=== PATIENT | female | born 1960 | race Caucasian/White ===

== ENCOUNTER 2018-04-04 20:16 | Inpatient (IN) | payer MEDICAID ==
[2018-04-04] MEDS ORDERED: LORazepam 2 MG/ML SDV IVPUSH ONE (20:41)
[2018-04-04] MEDS ORDERED: Ondansetron 4 MG/2 ML SDV IVPUSH ONE ×2 (20:46→22:47)
[2018-04-04] MEDS ORDERED: MVI, Adult with Vitamin K 10 ML, Thiamine 100 MG, Folic Acid 1 MG in Sodium Chloride 0.... IV ONE ×4 (20:46)
[2018-04-04] MEDS ORDERED: Sodium Chloride 0.9% 2.5 ML Syringe FLUSH PRN (21:13)
[2018-04-04] MEDS ORDERED: Sodium Chloride 0.9% 10 ML Syringe FLUSH PRN (21:13)
[2018-04-04 21:43] LABS: CHLORIDE,CL 96 mmol/L (98-107); SODIUM,NA 134 mmol/L (136-145)
--- NOTE | 2018-04-04 21:53 | EDM.PDOC ---
ED HPI GENERAL MEDICAL PROBLEM - General Chief Complaint: General Stated Complaint: MANY THINGS Time Seen by Provider: 04/04/18 20:28 Source of Information: Reports: Patient, Family, Old Records History Limitations: Reports: No Limitations - History of Present Illness INITIAL COMMENTS - FREE TEXT/NARRATIVE: HISTORY AND PHYSICAL: []58-year-old female presenting with acute alcohol withdrawal History of Present Illness: []Patient has long history of alcohol abuse She states that she quit drinking 3 days ago She has been having nausea and vomiting Her alcohol of choice is vodka which she mixes it with Gatorade. She generally has cut her consumption down so that she only has a quart every 2 weeks Review of Systems: As per history of present illness and below otherwise all systems reviewed and negative. Past medical history: As per history of present illness and as reviewed below otherwise noncontributory. Surgical history: As per history of present illness and as reviewed below otherwise noncontributory. Social history: No reported history of drug or alcohol abuse. Family history: As per history of present illness and as reviewed below otherwise noncontributory. Physical exam: Alert female who is tremoring significantly she has asked her daughter to answer for her. She is able to speak without any shortness of breath. Topic dermatitis is present significantly depressed her hands arms & chest/ vs psoriasis. HEENT: Atraumatic, normocehpalic, pupils reactive, negative for conjunctival pallor or scleral icterus, mucous membranes moist, throat clear, neck supple, nontender, trachea midline. Lungs: Clear to auscultation, breath sounds equal bilaterally, chest non tender. Heart: S1S2, regular, negative for clicks, rubs, or JVD. Abdomen: Soft, nondistended, nontender. Negative for masses or hepatossplenmegaly. Negative for costovertebral tenderness. Pelvis: Stable nontender. Genitourinary: Deferred. Rectal: Deferred Extremities: Atraumatic, negative for cords or calf pain. Neurovascular unremarkable. Neuro: Awake, alert, oriented. Cranial nerves II through XII unremarkable. Cerebellum unremarkable. Motor and sensory unremarkable throughout. Exam nonfocal. Significant tremors are noted Discussed this case with Dr. Carrizales, who has accepted for observation Diagnostics: []CBC CMP amylase lipase drug screen urine Therapeutics: []Banana bag IV Zofran IV Ativan Impression: []Acute alcohol withdrawal Plan: []Refer for observation Definitive disposition and diagnosis as appropriate pending reevaluation and review of above. Onset: Gradual Duration: Day(s): (3) Location: Reports: Generalized Quality: Reports: Same as Previous Episode Severity: Moderate Improves with: Reports: None Worsens with: Reports: None skin, all over Pain Score (Numeric/FACES): 10 - Related Data Allergies Allergy/AdvReac Type Severity Reaction Status Date / Time No Known Allergies Allergy Verified 04/04/18 20:34 Home Meds: Home Meds Calcipotriene [Calcitrene] 1 gm TP BID 04/04/18 [History] Cephalexin [Keflex] 500 mg PO QID 04/04/18 [History] Levothyroxine 112 mcg PO ACBREAKFAST 04/04/18 [History] Lisinopril 40 mg PO DAILY 04/04/18 [History] Sertraline HCl 25 mg PO DAILY 04/04/18 [History] atorvaSTATin [Lipitor] 40 mg PO BEDTIME 04/04/18 [History] Past Medical History Cardiovascular History: Reports: High Cholesterol, Hypertension, Other (See Below) 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 Gastrointestinal History: Reports: Other (See Below) Other Gastrointestinal History: large abdominal hernia [employer] History: Reports: Neurological History: Reports: Other (See Below) Other Neuro History: confusion at times Psychiatric History: Reports: Addiction, Anxiety, Depression Endocrine/Metabolic History: Reports: Hypothyroidism Dermatologic History: Reports: Eczema, Other (See Below) Other Dermatologic History: unknown skin condition - Infectious Disease History Infectious Disease History: Reports: Chicken Pox Social & Family History - Tobacco Use Smoking Status *Q: Current Every Day Smoker Years of Tobacco use: 25 Packs/Tins Daily: 0.5 - Caffeine Use Caffeine Use: Reports: Coffee - Alcohol Use Days Per Week of Alcohol Use: 7 Number of Drinks Per Day: 2 Total Drinks Per Week: 14 - Recreational Drug Use Recreational Drug Use: No ED ROS GENERAL - Review of Systems Review Of Systems: ROS reveals no pertinent complaints other than HPI. ED EXAM, GENERAL - Physical Exam Exam: See Below (see dictation) Course - Vital Signs Last Recorded V/S: Last Vital Signs Temp 36.6 C 04/04/18 20:27 Pulse 91 04/04/18 20:27 Resp 16 04/04/18 20:27 BP 156/95 H 04/04/18 20:27 Pulse Ox 100 04/04/18 20:27 - Orders/Labs/Meds Orders: Active Orders 24 hr Category Date Time Status Patient Status [ADT] Stat ADT 04/04/18 21:55 Ordered EKG Documentation Completion [RC] STAT Care 04/04/18 21:14 Active Telemetry Monitoring [Cardiac Monitoring] [RC] . Care 04/04/18 21:57 Ordered DIRECTED DRUG SCREEN, URINE [URCHEM] Stat Lab 04/04/18 21:14 Ordered UA W/MICROSCOPIC [URIN] Stat Lab 04/04/18 21:14 Ordered Sodium Chloride 0.9% [Saline Flush] Med 04/04/18 21:13 Active 10 ml FLUSH ASDIRECTED PRN Sodium Chloride 0.9% [Saline Flush] Med 04/04/18 21:13 Active 2.5 ml FLUSH ASDIRECTED PRN Saline Lock Insert [OM.PC] Stat Oth 04/04/18 21:13 Ordered Medication Orders Sodium Chloride (Saline Flush) 10 ml FLUSH ASDIRECTED PRN PRN Reason: Keep Vein Open Sodium Chloride (Saline Flush) 2.5 ml FLUSH ASDIRECTED PRN PRN Reason: Keep Vein Open Labs: Laboratory Tests 04/04/18 04/04/18 Range/Units 20:50 20:50 WBC 11.05 H (4.0-11.0) K/uL RBC 3.74 L (4.30-5.90) M/uL Hgb 12.9 (12.0-16.0) g/dL Hct 37.6 (36.0-46.0) % MCV 100.5 H (80.0-98.0) fL MCH 34.5 H (27.0-32.0) pg MCHC 34.3 (31.0-37.0) g/dL RDW Std Deviation 47.9 (28.0-62.0) fl RDW Coeff of Amrik 13 (11.0-15.0) % Plt Count 485 H (150-400) K/uL MPV 10.40 (7.40-12.00) fL Neut % (Auto) 53.8 (48.0-80.0) % Lymph % (Auto) 19.7 (16.0-40.0) % Early % (Auto) 7.9 (0.0-15.0) % Eos % (Auto) 18.1 H (0.0-7.0) % Baso % (Auto) 0.5 (0.0-1.5) % Neut # (Auto) 5.9 H (1.4-5.7) K/uL Lymph # (Auto) 2.2 (0.6-2.4) K/uL Early # (Auto) 0.9 H (0.0-0.8) K/uL Eos # (Auto) 2.0 H (0.0-0.7) K/uL Baso # (Auto) 0.1 (0.0-0.1) K/uL Nucleated RBC % 0.0 /100WBC Nucleated RBCs # 0 K/uL Sodium 134 L (136-145) mmol/L Potassium 3.8 (3.5-5.1) mmol/L Chloride 96 L (98-107) mmol/L Carbon Dioxide 31.7 (21.0-32.0) mmol/L BUN 28 H (7.0-18.0) mg/dL Creatinine 1.3 H (0.6-1.0) mg/dL Est Cr Clr Drug Dosing 38.99 mL/min Estimated GFR (MDRD) 41.9 ml/min Glucose 144 H (74-106) mg/dL Calcium 9.9 (8.5-10.1) mg/dL Total Bilirubin 0.4 (0.2-1.0) mg/dL AST 25 (15-37) IU/L ALT 22 (14-63) IU/L Alkaline Phosphatase 80 (46-116) U/L Total Protein 7.5 (6.4-8.2) g/dL Albumin 3.7 (3.4-5.0) g/dL Globulin 3.8 H (2.0-3.5) g/dL Albumin/Globulin Ratio 1.0 L (1.3-2.8) Amylase 35 (25-115) U/L Lipase 183 (73-393) U/L TSH 3rd Generation 4.04 H (0.36-3.74) uIU/mL Ethyl Alcohol <3 mg/dL Meds: Medications Generic Name Dose Route Start Last Admin Trade Name Freq PRN Reason Stop Dose Admin Sodium Chloride 10 ml 08/27/18 21:13 Saline Flush FLUSH ASDIRECTED PRN Keep Vein Open Sodium Chloride 2.5 ml 04/04/18 21:13 Saline Flush FLUSH ASDIRECTED PRN Keep Vein Open Discontinued Medications Generic Name Dose Route Start Last Admin Trade Name Freq PRN Reason Stop Dose Admin Multivitamins/Minerals 10 ml/ 1,011.2 mls @ 250 drops/min 04/04/18 20:46 Thiamine HCl 100 mg/ Folic IV 04/04/18 21:46 Acid 1 mg/ Sodium Chloride ONETIME ONE Lorazepam 1 mg 04/04/18 20:41 04/04/18 21:01 Ativan IVPUSH 04/04/18 20:42 1 mg ONETIME ONE Administration Ondansetron HCl 8 mg 04/04/18 20:46 04/04/18 20:59 Zofran IVPUSH 04/04/18 20:47 8 mg ONETIME ONE Administration Departure - Departure Time of Disposition: 22:01 Disposition: Refer to Observation Condition: Fair Clinical Impression: Alcohol withdrawal Qualifiers: Complication of substance-induced condition: uncomplicated Qualified Code(s): F10.230 - Alcohol dependence with withdrawal, uncomplicated - Discharge Information *PRESCRIPTION DRUG MONITORING PROGRAM REVIEWED*: Not Applicable *COPY OF PRESCRIPTION DRUG MONITORING REPORT IN PATIENT JOE: Not Applicable Referrals: PCP,None [Primary Care Provider] - Forms: ED Department Discharge - My Orders Last 24 Hours: My Active Orders 04/04/18 21:13 Sodium Chloride 0.9% [Saline Flush] 10 ml FLUSH ASDIRECTED PRN Sodium Chloride 0.9% [Saline Flush] 2.5 ml FLUSH ASDIRECTED PRN Saline Lock Insert [OM.PC] Stat 04/04/18 21:14 EKG Documentation Completion [RC] STAT DRUG SCREEN, URINE [URCHEM] Stat UA W/MICROSCOPIC [URIN] Stat 04/04/18 21:55 Patient Status [ADT] Stat 04/04/18 21:57 Telemetry Monitoring [Cardiac Monitoring] [RC] . DIRECTED - Assessment/Plan Last 24 Hours: My Active Orders 04/04/18 21:13 Sodium Chloride 0.9% [Saline Flush] 10 ml FLUSH ASDIRECTED PRN Sodium Chloride 0.9% [Saline Flush] 2.5 ml FLUSH ASDIRECTED PRN Saline Lock Insert [OM.PC] Stat 04/04/18 21:14 EKG Documentation Completion [RC] STAT DRUG SCREEN, URINE [URCHEM] Stat UA W/MICROSCOPIC [URIN] Stat 04/04/18 21:55 Patient Status [ADT] Stat 04/04/18 21:57 Telemetry Monitoring [Cardiac Monitoring] [RC] . DIRECTED
[2018-04-04] MEDS ORDERED: Ondansetron 4 MG/2 ML SDV ONE (22:48)
[2018-04-04] MEDS ORDERED: Acetaminophen 325 MG Tab PO PRN (23:25)
[2018-04-04] MEDS: LORazepam 2 MG/ML SDV IVPUSH PRN (23:40)
[2018-04-05] MEDS: Lactated Ringers 1,000 ML IV SCH ×2 (02:17→11:21)
[2018-04-05] MEDS: LORazepam 2 MG/ML SDV IVPUSH PRN ×5 (02:29→16:58)
[2018-04-05] MEDS: Ondansetron 4 MG/2 ML SDV IVPUSH PRN ×2 (04:20→09:54)
[2018-04-05] MEDS ORDERED: Promethazine 25 MG/ML SDV IM PRN (09:07)
[2018-04-05] MEDS ORDERED: MENTHOL TOP PRN (10:03)
[2018-04-05] MEDS ORDERED: ZINC OXIDE TOP PRN (10:03)
[2018-04-05] MEDS ORDERED: Triamcinolone Acetonide 0.1% Crm 15 GM Tube TOP SCH (11:10)
[2018-04-05] MEDS: Lisinopril 10 MG Tab PO SCH (11:18)
[2018-04-05] MEDS ORDERED: Albuterol/Ipratropium 3.0-0.5 MG/3 ML Neb Soln NEB PRN (11:19)
[2018-04-05] MEDS: methylPREDNISolone Sodium Succinate 40 MG/1 ML SDV IVPUSH SCH ×2 (11:20→15:23)
[2018-04-05] MEDS: diphenhydrAMINE 50 MG/ML SDV IVPUSH PRN ×2 (11:20→16:59)
[2018-04-05] MEDS ORDERED: Cephalexin 500 MG Cap PO SCH (12:00)
--- NOTE | 2018-04-05 13:08 | PCM.HP ---
H&P History of Present Illness - General Date of Service: 04/05/18 Admit Problem/Dx: Admission Diagnosis/Problem Admission Diagnosis/Problem Alcohol withdrawal syndrome Source of Information: Patient, Family History Limitations: Reports: Other (cognitive impairment) - History of Present Illness Initial Comments - Free Text/Narative: Patient 58 y old who looks significantly older than her age presented to hospital last night brought by her daughter in law because patient was alone at home for the past 2 weeks and when her daughter in law came she said she did not eat for the past 3 days. Patient has shaking of the hands and significant cognitive impairment. She is not able to give detailed history. Daughter in law expressed concerns about her body rash that is pruriginous and extended over her chest , back , abdomen , back of the neck , spares the face and scalp. Also as per daughter in law she lost about 50 lbs in less than 1 year and she drinks daily for the past 30 years. Lately she decreased her alcohol intake , she drinks only a glass a day of orange gatorade mixed with vodka.Her last drink as per patient was 3-4 days ago and currently patient has tremor of hands. Her daughter in law also says she vomits and has abdominl pain and this is going on for the past 3-4 y , every few moths , but lately it became more frequent , q monthly. She has a large ventral hernia and saw Dr. Hinds for this and was told this hernia is not operable here .Patient is supposed to have EGD / colonoscopy with Dr. Hinds as outpatient for periodic abdominal pain and vomiting. As per her daughter in law patient was treated with prednisone for 1 week and her rash had improvement . She also had a CT chest as work up for weight loss and it was negative Onset of Symptoms: Reports: Gradual Duration of Symptoms: Reports: Chronic Location: Reports: Head, Neck, Chest, Abdomen, Upper Extremity, Left, Upper Extremity, Right, Lower Extremity, Left, Lower Extremity, Right skin, all over Pain Score (Numeric/FACES): 0 - Related Data Allergies/Adverse Reactions: Allergies Allergy/AdvReac Type Severity Reaction Status Date / Time No Known Allergies Allergy Verified 04/04/18 20:34 Home Medications: Home Meds Calcipotriene [Calcitrene] 1 gm TP BID 04/04/18 [History] Cephalexin [Keflex] 500 mg PO QID 04/04/18 [History] Levothyroxine 112 mcg PO ACBREAKFAST 04/04/18 [History] Lisinopril 40 mg PO DAILY 04/04/18 [History] Sertraline HCl 25 mg PO DAILY 04/04/18 [History] atorvaSTATin [Lipitor] 40 mg PO BEDTIME 04/04/18 [History] Past Medical History - Past Health History Medical/Surgical History: Denies Medical/Surgical History Cardiovascular History: Reports: High Cholesterol, Hypertension, Other (See Below) 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 Gastrointestinal History: Reports: Other (See Below) Other Gastrointestinal History: large abdominal hernia [employer] History: Reports: Neurological History: Reports: Other (See Below) Other Neuro History: confusion at times Psychiatric History: Reports: Addiction, Anxiety, Depression Endocrine/Metabolic History: Reports: Hypothyroidism Dermatologic History: Reports: Eczema, Other (See Below) Other Dermatologic History: unknown skin condition - Infectious Disease History Infectious Disease History: Reports: Chicken Pox Social & Family History - Family History Family Medical History: Unobtainable - Tobacco Use Smoking Status *Q: Current Every Day Smoker Years of Tobacco use: 25 Packs/Tins Daily: 0.5 - Caffeine Use Caffeine Use: Reports: Coffee - Alcohol Use Days Per Week of Alcohol Use: 7 Number of Drinks Per Day: 2 Total Drinks Per Week: 14 - Recreational Drug Use Recreational Drug Use: No H&P Review of Systems - Review of Systems: Review Of Systems: See Below General: Reports: Fatigue, Decreased Appetite, Weight Loss (50 lbs) HEENT: Reports: No Symptoms Pulmonary: Reports: No Symptoms Cardiovascular: Reports: No Symptoms Gastrointestinal: Reports: No Symptoms Genitourinary: Reports: No Symptoms Musculoskeletal: Reports: No Symptoms Skin: Reports: Rash Psychiatric: Reports: Depression Neurological: Reports: No Symptoms Hematologic/Lymphatic: Reports: No Symptoms Immunologic: Reports: No Symptoms Exam - Exam Exam: See Below - Vital Signs Vital Signs: Last Vital Signs Temp 98.2 F 04/05/18 11:31 Pulse 90 04/05/18 11:31 Resp 16 04/05/18 11:31 BP 189/93 H 04/05/18 12:09 Pulse Ox 97 04/05/18 11:31 Weight: 121 lb 6.4 oz - Exam General: Alert, Oriented HEENT: Conjunctiva Clear Neck: Supple, Trachea Midline Lungs: Clear to Auscultation, Normal Respiratory Effort Cardiovascular: Regular Rate, Regular Rhythm, Normal S1, Normal S2 GI/Abdominal Exam: Normal Bowel Sounds, Soft, Non-Tender, No Distention, Hernia (large ventral hernia) Back Exam: Normal Inspection Extremities: Normal Inspection Skin: Rash Neurological: Cranial Nerves Intact Neuro Extensive - Mental Status: Alert, Oriented x3 Neuro Extensive - Motor, Sensory, Reflexes: CN II-XII Intact, Normal Gait, Normal Reflexes Psychiatric: Alert, Normal Affect - Patient Data Lab Results Last 24 hrs: Laboratory Results - last 24 hr 04/04/18 04/04/18 04/04/18 Range/Units 20:30 20:50 20:50 WBC 11.05 H (4.0-11.0) K/uL RBC 3.74 L (4.30-5.90) M/uL Hgb 12.9 (12.0-16.0) g/dL Hct 37.6 (36.0-46.0) % MCV 100.5 H (80.0-98.0) fL MCH 34.5 H (27.0-32.0) pg MCHC 34.3 (31.0-37.0) g/dL RDW Std Deviation 47.9 (28.0-62.0) fl RDW Coeff of Amrik 13 (11.0-15.0) % Plt Count 485 H (150-400) K/uL MPV 10.40 (7.40-12.00) fL Neut % (Auto) 53.8 (48.0-80.0) % Lymph % (Auto) 19.7 (16.0-40.0) % [place] % (Auto) 7.9 (0.0-15.0) % Eos % (Auto) 18.1 H (0.0-7.0) % Baso % (Auto) 0.5 (0.0-1.5) % Neut # (Auto) 5.9 H (1.4-5.7) K/uL Lymph # (Auto) 2.2 (0.6-2.4) K/uL [place] # (Auto) 0.9 H (0.0-0.8) K/uL Eos # (Auto) 2.0 H (0.0-0.7) K/uL Baso # (Auto) 0.1 (0.0-0.1) K/uL Nucleated RBC % 0.0 /100WBC Nucleated RBCs # 0 K/uL Sodium 134 L (136-145) mmol/L Potassium 3.8 (3.5-5.1) mmol/L Chloride 96 L (98-107) mmol/L Carbon Dioxide 31.7 (21.0-32.0) mmol/L BUN 28 H (7.0-18.0) mg/dL Creatinine 1.3 H (0.6-1.0) mg/dL Est Cr Clr Drug Dosing 38.99 mL/min Estimated GFR (MDRD) 41.9 ml/min Glucose 144 H (74-106) mg/dL Calcium 9.9 (8.5-10.1) mg/dL Total Bilirubin 0.4 (0.2-1.0) mg/dL AST 25 (15-37) IU/L ALT 22 (14-63) IU/L Alkaline Phosphatase 80 (46-116) U/L Troponin I < 0.050 (0.000-0.056) ng/mL Total Protein 7.5 (6.4-8.2) g/dL Albumin 3.7 (3.4-5.0) g/dL Globulin 3.8 H (2.0-3.5) g/dL Albumin/Globulin Ratio 1.0 L (1.3-2.8) Amylase 35 (25-115) U/L Lipase 183 (73-393) U/L TSH 3rd Generation 4.04 H (0.36-3.74) uIU/mL Ethyl Alcohol <3 mg/dL 04/05/18 04/05/18 Range/Units 05:37 05:37 WBC 12.86 H (4.0-11.0) K/uL RBC 3.50 L (4.30-5.90) M/uL Hgb 11.8 L (12.0-16.0) g/dL Hct 35.6 L (36.0-46.0) % MCV 101.7 H (80.0-98.0) fL MCH 33.7 H (27.0-32.0) pg MCHC 33.1 (31.0-37.0) g/dL RDW Std Deviation 48.5 (28.0-62.0) fl RDW Coeff of Amrik 13 (11.0-15.0) % Plt Count 482 H (150-400) K/uL MPV 9.80 (7.40-12.00) fL Neut % (Auto) 59.0 (48.0-80.0) % Lymph % (Auto) 19.4 (16.0-40.0) % [place] % (Auto) 6.8 (0.0-15.0) % Eos % (Auto) 14.3 H (0.0-7.0) % Baso % (Auto) 0.5 (0.0-1.5) % Neut # (Auto) 7.6 H (1.4-5.7) K/uL Lymph # (Auto) 2.5 H (0.6-2.4) K/uL [place] # (Auto) 0.9 H (0.0-0.8) K/uL Eos # (Auto) 1.8 H (0.0-0.7) K/uL Baso # (Auto) 0.1 (0.0-0.1) K/uL Nucleated RBC % 0.0 /100WBC Nucleated RBCs # 0 K/uL Sodium 138 (136-145) mmol/L Potassium 3.6 (3.5-5.1) mmol/L Chloride 101 (98-107) mmol/L Carbon Dioxide 32.5 H (21.0-32.0) mmol/L BUN 23 H (7.0-18.0) mg/dL Creatinine 1.2 H (0.6-1.0) mg/dL Est Cr Clr Drug Dosing 43.88 mL/min Estimated GFR (MDRD) 46.0 ml/min Glucose 134 H (74-106) mg/dL Calcium 9.5 (8.5-10.1) mg/dL Total Bilirubin (0.2-1.0) mg/dL AST (15-37) IU/L ALT (14-63) IU/L Alkaline Phosphatase (46-116) U/L Troponin I (0.000-0.056) ng/mL Total Protein (6.4-8.2) g/dL Albumin (3.4-5.0) g/dL Globulin (2.0-3.5) g/dL Albumin/Globulin Ratio (1.3-2.8) Amylase (25-115) U/L Lipase (73-393) U/L TSH 3rd Generation (0.36-3.74) uIU/mL Ethyl Alcohol mg/dL Result Diagrams: 04/05/18 05:37 04/05/18 05:37 - Problem List (1) Unintentional weight loss SNOMED Code(s): 770023942 ICD Code: R63.4 - ABNORMAL WEIGHT LOSS Status: Acute Current Visit: Yes (2) Alcohol withdrawal SNOMED Code(s): 423880446 ICD Code: F10.239 - ALCOHOL DEPENDENCE WITH WITHDRAWAL, UNSPECIFIED Status : Acute Current Visit: Yes Qualifiers: Complication of substance-induced condition: uncomplicated Qualified Code(s ): F10.230 - Alcohol dependence with withdrawal, uncomplicated (3) Alcohol abuse SNOMED Code(s): 74128498 ICD Code: F10.10 - ALCOHOL ABUSE, UNCOMPLICATED Status: Acute Current Visit: Yes (4) Dementia SNOMED Code(s): 27193817 ICD Code: F03.90 - UNSPECIFIED DEMENTIA WITHOUT BEHAVIORAL DISTURBANCE Status: Acute Current Visit: Yes (5) Ventral hernia SNOMED Code(s): 043486063 ICD Code: K43.9 - VENTRAL HERNIA WITHOUT OBSTRUCTION OR GANGRENE Status: Acute Current Visit: Yes (6) Skin rash SNOMED Code(s): 455424589 ICD Code: R21 - RASH AND OTHER NONSPECIFIC SKIN ERUPTION Status: Acute Current Visit: Yes Problem List Initiated/Reviewed/Updated: Yes Orders Last 24hrs: Active Orders 24 hr Category Date Time Status Patient Status [ADT] Routine ADT 04/05/18 12:53 Active Patient Status [ADT] Stat ADT 04/04/18 21:55 Active CIWAA Assessment [RC] Q4H Care 04/04/18 23:23 Active RT Aerosol Therapy [RC] ASDIRECTED Care 04/05/18 11:19 Active Telemetry Monitoring [Cardiac Monitoring] [RC] Q8H Care 04/04/18 21:57 Active 2 Gram Sodium Diet [DIET] Diet 04/05/18 Breakfast Active BMP [BASIC METABOLIC PANEL,BMP] [CHEM] DAILY Lab 04/06/18 05:00 Ordered BMP [BASIC METABOLIC PANEL,BMP] [CHEM] DAILY Lab 04/07/18 05:00 Ordered BMP [BASIC METABOLIC PANEL,BMP] [CHEM] DAILY Lab 04/08/18 05:00 Ordered BMP [BASIC METABOLIC PANEL,BMP] [CHEM] DAILY Lab 04/09/18 05:00 Ordered CBC WITH AUTO DIFF [HEME] DAILY Lab 04/06/18 05:00 Ordered CBC WITH AUTO DIFF [HEME] DAILY Lab 04/07/18 05:00 Ordered CBC WITH AUTO DIFF [HEME] DAILY Lab 04/08/18 05:00 Ordered DRUG SCREEN, URINE [URCHEM] Stat Lab 04/04/18 21:14 Ordered UA W/MICROSCOPIC [URIN] Stat Lab 04/04/18 21:14 Ordered VANCOMYCIN TROUGH [CHEM] Routine Lab 04/06/18 21:30 Ordered Acetaminophen [Tylenol] Med 04/04/18 23:25 Active 650 mg PO Q6H PRN Acetaminophen/oxyCODONE [Percocet 325-5 MG] Med 04/04/18 23:23 Active 1 tab PO Q4H PRN Albuterol/Ipratropium [DuoNeb 3.0-0.5 MG/3 ML] Med 04/05/18 11:19 Active 3 ml NEB Q4HRRT PRN Insulin Aspart [NovoLOG] Med 04/06/18 11:30 Active See Protocol SUBCUT TIDAC LORazepam [Ativan] Med 04/04/18 23:23 Active See Protocol IVPUSH Q4H PRN Lactated Ringers [Ringers, Lactated] 1,000 ml Med 04/04/18 23:30 Active IV ASDIRECTED Levothyroxine Med 04/06/18 07:30 Active 112 mcg PO ACBREAKFAST Lisinopril [Prinivil] Med 04/05/18 11:10 Active 40 mg PO DAILY Menthol/Zinc Oxide [Gold Sultana Medicated Body Pwd] Med 04/05/18 10:03 Active 1 gm TOP BID PRN Ondansetron [Zofran] Med 04/05/18 04:08 Active 4 mg IVPUSH Q4H PRN Patient's Own Medication [Ptom] Med 04/05/18 21:00 Active 1 each PO BID Promethazine [Phenergan] Med 04/05/18 09:07 Active 12.5 mg IM Q4H PRN Sertraline [Zoloft] Med 04/06/18 09:00 Active 25 mg PO DAILY Sodium Chloride 0.9% [Saline Flush] Med 04/04/18 21:13 Active 10 ml FLUSH ASDIRECTED PRN Sodium Chloride 0.9% [Saline Flush] Med 04/04/18 21:13 Active 2.5 ml FLUSH ASDIRECTED PRN Triamcinolone Acetonide [Triamcinolone Acetonide 0.1% Med 04/05/18 11:10 Active Crm] 15 gm TOP DAILY Vancomycin Pharmacy to Dose [Pharmacy to Dose - Med 04/05/18 10:15 Active Vancomycin] 1 dose .XX ASDIRECTED Vancomycin [Vancocin] 1 gm Med 04/05/18 10:30 Active Sodium Chloride 0.9% [Normal Saline] 250 ml IV Q12H atorvaSTATin [Lipitor] Med 04/05/18 21:00 Active 40 mg PO BEDTIME diphenhydrAMINE [Benadryl] Med 04/05/18 10:04 Active 50 mg IVPUSH Q6H PRN methylPREDNISolone Sod Succ [Solu-MEDROL] Med 04/05/18 10:15 Active 40 mg IVPUSH Q6H Saline Lock Insert [OM.PC] Stat Oth 04/04/18 21:13 Ordered Code Status [Resuscitation Status] Routine Resus Stat 04/05/18 12:26 Ordered Medication Orders Acetaminophen (Tylenol) 650 mg PO Q6H PRN PRN Reason: Pain Albuterol/Ipratropium (Duoneb 3.0-0.5 Mg/3 Ml) 3 ml NEB Q4HRRT PRN PRN Reason: SOB/wheezing Last Admin: 04/05/18 11:47 Dose: 3 ml Atorvastatin Calcium (Lipitor) 40 mg PO BEDTIME [facility]Y Calamine/Phenol (Gold Sultana Medicated Body Pwd) 1 gm TOP BID PRN PRN Reason: pruritus Diphenhydramine HCl (Benadryl) 50 mg IVPUSH Q6H PRN PRN Reason: Itching Last Admin: 04/05/18 11:20 Dose: 50 mg Lactated Ringer's (Ringers, Lactated) 1,000 mls @ 100 mls/hr IV ASDIRECTED AMY Last Admin: 04/05/18 11:21 Dose: 100 mls/hr Infusion: 04/05/18 11:21 Dose: 100 mls/hr Admin: 04/05/18 02:17 Dose: 100 mls/hr Vancomycin HCl 1 gm/ Sodium (Chloride) 250 mls @ 166.667 mls/hr IV Q12H [facility] Last Admin: 04/05/18 11:20 Dose: 166.667 mls/hr Insulin Aspart (Novolog) 0 unit SUBCUT TIDAC [facility]Y; Protocol Levothyroxine Sodium (Levothyroxine) 112 mcg PO ACBREAKFAST [facility] Lisinopril (Prinivil) 40 mg PO DAILY [facility] Last Admin: 04/05/18 11:18 Dose: 40 mg Lorazepam (Ativan) 0 mg IVPUSH Q4H PRN; Protocol PRN Reason: Withdrawal Symptoms Last Admin: 04/05/18 12:38 Dose: 1 mg Admin: 04/05/18 09:28 Dose: 2 mg Admin: 04/05/18 07:46 Dose: 2 mg Admin: 04/05/18 02:29 Dose: 2 mg Admin: 04/04/18 23:40 Dose: 2 mg Methylprednisolone Sodium Succinate (Solu-Medrol) 40 mg IVPUSH Q6H [facility] Last Admin: 04/05/18 11:20 Dose: 40 mg Ondansetron HCl (Zofran) 4 mg IVPUSH Q4H PRN PRN Reason: Nausea/Vomiting Last Admin: 04/05/18 09:54 Dose: 4 mg Admin: 04/05/18 04:20 Dose: 4 mg Oxycodone/Acetaminophen (Percocet 325-5 Mg) 1 tab PO Q4H PRN PRN Reason: Pain Calcipotriene [ (Calcitrene] 1 Gm) 1 each PO BID [facility] Promethazine HCl (Phenergan) 12.5 mg IM Q4H PRN PRN Reason: Vomiting Last Admin: 04/05/18 12:51 Dose: 12.5 mg Sertraline HCl (Zoloft) 25 mg PO DAILY [facility] Sodium Chloride (Saline Flush) 10 ml FLUSH ASDIRECTED PRN PRN Reason: Keep Vein Open Sodium Chloride (Saline Flush) 2.5 ml FLUSH ASDIRECTED PRN PRN Reason: Keep Vein Open Triamcinolone Acetonide (Triamcinolone Acetonide 0.1% Crm) 15 gm TOP DAILY [facility] Last Admin: 04/05/18 11:59 Dose: 1 applic Vancomycin HCl (Pharmacy To Dose - Vancomycin) 1 dose .XX ASDIRECTED [facility] Assessment and plan Will admit patient to medical telemetry [facility] protocol IV fluids , banana bag for dementia - will give patient thiamine 100 mg po daily , multivitamins , will order rPR and TSH and B12 level For anxiety - continue sertraline 25 mg po daily For hypothyroidism - will order TSH For skin rash _ solumedrol 60 mg iv q 6 h , benadryl 50 mg iv q 6 h , doxepin 25 mg po daily triamcinolone 0.1 % bid topical vancomycin iv , pharmacy to dose menthol paste topical for unintentional weight loss - CT abdomen and pelvis with and wo contrast Gi prof: PPI
[2018-04-05] MEDS ORDERED: Doxepin 25 MG Cap PO ONE (16:48)
[2018-04-05] MEDS: methylPREDNISolone Sodium Succinate 125 MG/2 ML SDV IVPUSH SCH ×2 (17:10→22:18)
[2018-04-05] MEDS: atorvaSTATin 40 MG Tab PO SCH (20:25)
[2018-04-05] MEDS: Triamcinolone Acetonide 0.1% Crm 15 GM Tube TOP SCH (21:42)
[2018-04-05] MEDS: CALCIPOTRIENE 1 GM PO SCH (21:46)
[2018-04-06] MEDS: diphenhydrAMINE 50 MG/ML SDV IVPUSH SCH ×4 (00:57→17:59)
[2018-04-06] MEDS: LORazepam 2 MG/ML SDV IVPUSH PRN (00:57)
[2018-04-06] MEDS: Ampicillin/Sulbactam Na 3 GM in Sodium Chloride 0.9% 100 ML IV SCH ×4 (01:30→18:01)
[2018-04-06] MEDS: methylPREDNISolone Sodium Succinate 125 MG/2 ML SDV IVPUSH SCH ×4 (03:56→23:09)
[2018-04-06] MEDS: Acetaminophen/oxyCODONE 325-5 MG Tab PO PRN ×2 (06:09→17:07)
[2018-04-06] MEDS: Levothyroxine 112 MCG Tab PO SCH (06:31)
[2018-04-06] MEDS ORDERED: Lisinopril 10 MG Tab PO SCH (09:00)
[2018-04-06] MEDS ORDERED: Triamcinolone Acetonide 0.1% Crm 15 GM Tube TOP SCH (09:00)
[2018-04-06] MEDS: Lisinopril 10 MG Tab PO SCH (09:04)
[2018-04-06] MEDS: Sertraline 50 MG Tab PO SCH (09:05)
[2018-04-06] MEDS: Triamcinolone Acetonide 0.1% Crm 15 GM Tube TOP SCH ×2 (09:06→21:30)
[2018-04-06] MEDS: CALCIPOTRIENE 1 GM PO SCH ×2 (09:35→22:09)
[2018-04-06] MEDS: Folic Acid/Vitamin B Complex With C Cap PO SCH (10:09)
[2018-04-06] MEDS ORDERED: Lidocaine 1% with EPINEPHrine 1:100,000 20 ML MDV INJECT ONE (11:00)
--- NOTE | 2018-04-06 11:02 | CT ---
EXAM DATE: 04/05/18 PATIENT'S AGE: 58 Patient: GELY CLINE Facility: [place], [place] Site . Site : 1960 Study: CT Abdomen [id number]/[id number] 6:46:29 PM Ordering Physician: Sofie Raya Final Report: HISTORY: Unintentional weight loss. Abdominal pain. TECHNIQUE: CT abdomen without and with IV contrast. COMPARISON: CT abdomen and pelvis 09/20/2017. FINDINGS: Abdomen: No liver lesions. No bile duct dilation. No pancreatic mass or pancreatic duct dilation. No spleen lesions. Spleen is normal size. No adrenal nodules. Punctate papillary or caliceal calcifications in the left kidney. No obstructing calculi. Kidneys enhance symmetrically. Right renal cyst. Subcentimeter hypodense lesions in both kidneys are too small to characterize but are likely cysts. Visualized portions of the collecting systems are nondilated. Imaged bowel is not dilated. Large ventral hernia containing nondilated small bowel and colon, partially imaged. No lymphadenopathy. Atherosclerosis. Ectasia of the distal descending thoracic aorta up to 3.3 x 3.6 cm just above the diaphragmatic hiatus. Mild ectasia of the infrarenal abdominal aorta up to 2.4 cm diameter. Musculoskeletal: Thoracolumbar scoliosis. Degenerative changes of the spine. Lower chest: Coronary artery calcifications. Visualized ascending aorta is dilated to 4.5 cm. Mild atelectasis in the left lower lobe. IMPRESSION: 1. No acute findings in the abdomen. 2. Partially imaged large ventral hernia containing nondilated small bowel and colon. 3. Dilated ascending and distal descending thoracic aorta. Mildly dilated infrarenal abdominal aorta. Please note that all CT scans at this facility use dose modulation, iterative reconstruction, and/or weight-based dosing when appropriate to reduce radiation dose to as low as reasonably achievable. Dictated by Gildardo Trimble MD @ Apr 05 2018 7:11PM (Electronic Signature) Report Signed by Proxy. MTDD
[2018-04-06] MEDS: Insulin Aspart 100 Units/ML 3 ML Pen SUBCUT SCH ×2 (11:16→16:49)
--- NOTE | 2018-04-06 12:53 | PCM.PN ---
- General Info Date of Service: 04/06/18 Admission Dx/Problem (Free Text): Admission Diagnosis/Problem Admission Diagnosis/Problem Alcohol withdrawal syndrome Subjective Update: Patient ct of abdomen did not show any malignancy. Her rash is improving with iv antib and solumedrol iv . Had decrease in Hb to 8.6 from 11 , Received IV fluids.Will start protonix 40 mg iv daily. Diagnostic occult blood screen. Her blood work at admission showed eosinophilia - likley this rash is allergic. Had skin biopsy with Dr. Hanson. - Review of Systems General: Reports: No Symptoms HEENT: Reports: No Symptoms Pulmonary: Reports: No Symptoms Cardiovascular: Reports: No Symptoms Gastrointestinal: Reports: Other (ventral hernia) Genitourinary: Reports: No Symptoms Musculoskeletal: Reports: No Symptoms Skin: Reports: Pruritis, Rash, Other (superficial escoriations due to scretching ) Neurological: Reports: No Symptoms Psychiatric: Reports: No Symptoms - Patient Data Vitals - Most Recent: Last Vital Signs Temp 98.0 F 04/06/18 11:49 Pulse 85 04/06/18 11:49 Resp 22 H 04/06/18 11:49 BP 123/77 04/06/18 11:49 Pulse Ox 94 L 04/06/18 11:49 Weight - Most Recent: 121 lb 6.4 oz I&O - Last 24 Hours: Intake & Output 04/05/18 04/06/18 04/06/18 22:59 06:59 14:59 Intake Total 831 1972 Output Total 600 300 Balance 231 1672 Lab Results Last 24 Hours: Laboratory Results - last 24 hr 04/05/18 04/05/18 04/05/18 Range/Units 05:37 15:45 15:45 WBC (4.0-11.0) K/uL RBC (4.30-5.90) M/uL Hgb (12.0-16.0) g/dL Hct (36.0-46.0) % MCV (80.0-98.0) fL MCH (27.0-32.0) pg MCHC (31.0-37.0) g/dL RDW Std Deviation (28.0-62.0) fl RDW Coeff of Amrik (11.0-15.0) % Plt Count (150-400) K/uL MPV (7.40-12.00) fL Neut % (Auto) (48.0-80.0) % Lymph % (Auto) (16.0-40.0) % Perkins % (Auto) (0.0-15.0) % Eos % (Auto) (0.0-7.0) % Baso % (Auto) (0.0-1.5) % Neut # (Auto) (1.4-5.7) K/uL Lymph # (Auto) (0.6-2.4) K/uL Perkins # (Auto) (0.0-0.8) K/uL Eos # (Auto) (0.0-0.7) K/uL Baso # (Auto) (0.0-0.1) K/uL Nucleated RBC % /100WBC Nucleated RBCs # K/uL Sodium (136-145) mmol/L Potassium (3.5-5.1) mmol/L Chloride (98-107) mmol/L Carbon Dioxide (21.0-32.0) mmol/L BUN (7.0-18.0) mg/dL Creatinine (0.6-1.0) mg/dL Est Cr Clr Drug Dosing mL/min Estimated GFR (MDRD) ml/min Glucose (74-106) mg/dL POC Glucose (60-110) mg/dL Hemoglobin A1c (4.5-6.2) % Calcium (8.5-10.1) mg/dL Vitamin B12 (193-986) pg/mL Free T4 1.19 (0.76-1.46) ng/dL Urine Color YELLOW Urine Appearance CLEAR Urine pH 8.5 H (5.0-8.0) Ur Specific [place] 1.015 (1.001-1.035) Urine Protein TRACE (NEGATIVE) mg/dL Urine Glucose (UA) NEGATIVE (NEGATIVE) mg/dL Urine Ketones NEGATIVE (NEGATIVE) mg/dL Urine Occult Blood NEGATIVE (NEGATIVE) Urine Nitrite NEGATIVE (NEGATIVE) Urine Bilirubin NEGATIVE (NEGATIVE) Urine Urobilinogen 0.2 (<2.0) EU/dL Ur Leukocyte Esterase NEGATIVE (NEGATIVE) Urine RBC 0-1 (0-2/HPF) Urine WBC 0-1 (0-5/HPF) Ur Epithelial Cells FEW (NONE-FEW) Urine Bacteria FEW (NEGATIVE) Urine Mucus LIGHT (NONE-MOD) Urine Opiates Screen NEGATIVE (NEGATIVE) Ur Oxycodone Screen NEGATIVE (NEGATIVE) Urine Methadone Screen NEGATIVE (NEGATIVE) Ur Barbiturates Screen NEGATIVE (NEGATIVE) Ur Phencyclidine Scrn NEGATIVE (NEGATIVE) Ur Amphetamine Screen NEGATIVE (NEGATIVE) U Methamphetamines Scrn NEGATIVE (NEGATIVE) U Benzodiazepines Scrn POSITIVE (NEGATIVE) U Cocaine Metab Screen NEGATIVE (NEGATIVE) U Marijuana (THC) Screen NEGATIVE (NEGATIVE) 04/06/18 04/06/18 04/06/18 Range/Units 05:43 05:43 05:43 WBC 9.22 (4.0-11.0) K/uL RBC 2.60 L (4.30-5.90) M/uL Hgb 8.9 L (12.0-16.0) g/dL Hct 26.7 L (36.0-46.0) % MCV 102.7 H (80.0-98.0) fL MCH 34.2 H (27.0-32.0) pg MCHC 33.3 (31.0-37.0) g/dL RDW Std Deviation 49.8 (28.0-62.0) fl RDW Coeff of Amrik 13 (11.0-15.0) % Plt Count 370 (150-400) K/uL MPV 9.90 (7.40-12.00) fL Neut % (Auto) 85.5 H (48.0-80.0) % Lymph % (Auto) 12.4 L (16.0-40.0) % Perkins % (Auto) 1.8 (0.0-15.0) % Eos % (Auto) 0.2 (0.0-7.0) % Baso % (Auto) 0.1 (0.0-1.5) % Neut # (Auto) 7.9 H (1.4-5.7) K/uL Lymph # (Auto) 1.1 (0.6-2.4) K/uL Perkins # (Auto) 0.2 (0.0-0.8) K/uL Eos # (Auto) 0.0 (0.0-0.7) K/uL Baso # (Auto) 0.0 (0.0-0.1) K/uL Nucleated RBC % 0.0 /100WBC Nucleated RBCs # 0 K/uL Sodium 143 (136-145) mmol/L Potassium 4.5 (3.5-5.1) mmol/L Chloride 107 (98-107) mmol/L Carbon Dioxide 28.7 (21.0-32.0) mmol/L BUN 25 H (7.0-18.0) mg/dL Creatinine 1.0 (0.6-1.0) mg/dL Est Cr Clr Drug Dosing 52.66 mL/min Estimated GFR (MDRD) 56.7 ml/min Glucose 151 H (74-106) mg/dL POC Glucose (60-110) mg/dL Hemoglobin A1c (4.5-6.2) % Calcium 9.6 (8.5-10.1) mg/dL Vitamin B12 493 (193-986) pg/mL Free T4 (0.76-1.46) ng/dL Urine Color Urine Appearance Urine pH (5.0-8.0) Ur Specific [place] (1.001-1.035) Urine Protein (NEGATIVE) mg/dL Urine Glucose (UA) (NEGATIVE) mg/dL Urine Ketones (NEGATIVE) mg/dL Urine Occult Blood (NEGATIVE) Urine Nitrite (NEGATIVE) Urine Bilirubin (NEGATIVE) Urine Urobilinogen (<2.0) EU/dL Ur Leukocyte Esterase (NEGATIVE) Urine RBC (0-2/HPF) Urine WBC (0-5/HPF) Ur Epithelial Cells (NONE-FEW) Urine Bacteria (NEGATIVE) Urine Mucus (NONE-MOD) Urine Opiates Screen (NEGATIVE) Ur Oxycodone Screen (NEGATIVE) Urine Methadone Screen (NEGATIVE) Ur Barbiturates Screen (NEGATIVE) Ur Phencyclidine Scrn (NEGATIVE) Ur Amphetamine Screen (NEGATIVE) U Methamphetamines Scrn (NEGATIVE) U Benzodiazepines Scrn (NEGATIVE) U Cocaine Metab Screen (NEGATIVE) U Marijuana (THC) Screen (NEGATIVE) 04/06/18 04/06/18 Range/Units 06:43 11:08 WBC (4.0-11.0) K/uL RBC (4.30-5.90) M/uL Hgb (12.0-16.0) g/dL Hct (36.0-46.0) % MCV (80.0-98.0) fL MCH (27.0-32.0) pg MCHC (31.0-37.0) g/dL RDW Std Deviation (28.0-62.0) fl RDW Coeff of Amrik (11.0-15.0) % Plt Count (150-400) K/uL MPV (7.40-12.00) fL Neut % (Auto) (48.0-80.0) % Lymph % (Auto) (16.0-40.0) % Perkins % (Auto) (0.0-15.0) % Eos % (Auto) (0.0-7.0) % Baso % (Auto) (0.0-1.5) % Neut # (Auto) (1.4-5.7) K/uL Lymph # (Auto) (0.6-2.4) K/uL Perkins # (Auto) (0.0-0.8) K/uL Eos # (Auto) (0.0-0.7) K/uL Baso # (Auto) (0.0-0.1) K/uL Nucleated RBC % /100WBC Nucleated RBCs # K/uL Sodium (136-145) mmol/L Potassium (3.5-5.1) mmol/L Chloride (98-107) mmol/L Carbon Dioxide (21.0-32.0) mmol/L BUN (7.0-18.0) mg/dL Creatinine (0.6-1.0) mg/dL Est Cr Clr Drug Dosing mL/min Estimated GFR (MDRD) ml/min Glucose (74-106) mg/dL POC Glucose 145 H (60-110) mg/dL Hemoglobin A1c 5.3 (4.5-6.2) % Calcium (8.5-10.1) mg/dL Vitamin B12 (193-986) pg/mL Free T4 (0.76-1.46) ng/dL Urine Color Urine Appearance Urine pH (5.0-8.0) Ur Specific [place] (1.001-1.035) Urine Protein (NEGATIVE) mg/dL Urine Glucose (UA) (NEGATIVE) mg/dL Urine Ketones (NEGATIVE) mg/dL Urine Occult Blood (NEGATIVE) Urine Nitrite (NEGATIVE) Urine Bilirubin (NEGATIVE) Urine Urobilinogen (<2.0) EU/dL Ur Leukocyte Esterase (NEGATIVE) Urine RBC (0-2/HPF) Urine WBC (0-5/HPF) Ur Epithelial Cells (NONE-FEW) Urine Bacteria (NEGATIVE) Urine Mucus (NONE-MOD) Urine Opiates Screen (NEGATIVE) Ur Oxycodone Screen (NEGATIVE) Urine Methadone Screen (NEGATIVE) Ur Barbiturates Screen (NEGATIVE) Ur Phencyclidine Scrn (NEGATIVE) Ur Amphetamine Screen (NEGATIVE) U Methamphetamines Scrn (NEGATIVE) U Benzodiazepines Scrn (NEGATIVE) U Cocaine Metab Screen (NEGATIVE) U Marijuana (THC) Screen (NEGATIVE) Med Orders - Current: Current Medications Acetaminophen (Tylenol) 650 mg PO Q6H PRN PRN Reason: Pain Albuterol/Ipratropium (Duoneb 3.0-0.5 Mg/3 Ml) 3 ml NEB Q4HRRT PRN PRN Reason: SOB/wheezing Last Admin: 04/05/18 11:47 Dose: 3 ml Atorvastatin Calcium (Lipitor) 40 mg PO BEDTIME [facility] Last Admin: 04/05/18 20:25 Dose: 40 mg Calamine/Phenol (Gold Sultana Medicated Body Pwd) 1 gm TOP BID PRN PRN Reason: pruritus Diphenhydramine HCl (Benadryl) 50 mg IVPUSH Q6H [facility] Last Admin: 04/06/18 05:44 Dose: 50 mg Lactated Ringer's (Ringers, Lactated) 1,000 mls @ 100 mls/hr IV ASDIRECTED [facility] Last Admin: 04/05/18 11:21 Dose: 100 mls/hr Vancomycin HCl 1 gm/ Sodium (Chloride) 250 mls @ 166.667 mls/hr IV Q12H [facility] Last Admin: 04/06/18 10:09 Dose: 166.667 mls/hr Ampicillin Sodium/Sulbactam (Sodium 3 gm/ Sodium Chloride) 100 mls @ 200 mls/ hr IV Q6H [facility] Insulin Aspart (Novolog) 0 unit SUBCUT TIDAC [facility]; Protocol Last Admin: 04/06/18 11:16 Dose: Not Given Levothyroxine Sodium (Levothyroxine) 112 mcg PO ACBREAKFAST [facility] Last Admin: 04/06/18 06:31 Dose: 112 mcg Lisinopril (Prinivil) 40 mg PO DAILY [facility] Last Admin: 04/06/18 09:04 Dose: 40 mg Lorazepam (Ativan) 0 mg IVPUSH Q4H PRN; Protocol PRN Reason: Withdrawal Symptoms Last Admin: 04/06/18 00:57 Dose: 1 mg Methylprednisolone Sodium Succinate (Solu-Medrol) 60 mg IVPUSH Q6H [facility] Last Admin: 04/06/18 10:09 Dose: 60 mg Multivit/Ca Carb/B Cmplx/FA/Prenat (Renal Caps Softgel) 1 cap PO DAILY [facility] Last Admin: 04/06/18 10:09 Dose: 1 cap Ondansetron HCl (Zofran) 4 mg IVPUSH Q4H PRN PRN Reason: Nausea/Vomiting Last Admin: 04/05/18 09:54 Dose: 4 mg Oxycodone/Acetaminophen (Percocet 325-5 Mg) 1 tab PO Q4H PRN PRN Reason: Pain Last Admin: 04/06/18 06:09 Dose: 1 tab Calcipotriene [ (Calcitrene] 1 Gm) 1 each PO BID [facility] Last Admin: 04/06/18 09:35 Dose: Not Given Promethazine HCl (Phenergan) 12.5 mg IM Q4H PRN PRN Reason: Vomiting Last Admin: 04/05/18 12:51 Dose: 12.5 mg Sertraline HCl (Zoloft) 25 mg PO DAILY [facility] Last Admin: 04/06/18 09:05 Dose: 25 mg Sodium Chloride (Saline Flush) 10 ml FLUSH ASDIRECTED PRN PRN Reason: Keep Vein Open Sodium Chloride (Saline Flush) 2.5 ml FLUSH ASDIRECTED PRN PRN Reason: Keep Vein Open Thiamine HCl (Vitamin B-1) 100 mg PO BEDTIME [facility] Triamcinolone Acetonide (Triamcinolone Acetonide 0.1% Crm) 15 gm TOP BID [facility] Last Admin: 04/06/18 09:06 Dose: 1 applic Vancomycin HCl (Pharmacy To Dose - Vancomycin) 1 dose .XX ASDIRECTED [facility] Discontinued Medications Cephalexin (Keflex) 500 mg PO QID [facility] Diphenhydramine HCl (Benadryl) 50 mg IVPUSH Q6H PRN PRN Reason: Itching Last Admin: 04/05/18 16:59 Dose: 50 mg Doxepin HCl (Sinequan) 25 mg PO ONETIME ONE Stop: 04/05/18 16:49 Last Admin: 04/05/18 17:03 Dose: 25 mg Multivitamins/Minerals 10 ml/Thiamine HCl 100 mg/ Folic Acid 1 mg/ Sodium Chloride 1,011.2 mls @ 250 drops/min IV ONETIME ONE Stop: 04/04/18 21:46 Last Admin: 04/04/18 22:00 Dose: 250 drops/min Ampicillin Sodium/Sulbactam (Sodium 3 gm/ Sodium Chloride) 100 mls @ 200 mls/ hr IV Q6H [facility] Last Admin: 04/06/18 05:44 Dose: 200 mls/hr Lidocaine/Epinephrine (Xylocaine 1% With Epinephrine 1:100,000) 20 ml INJECT ONETIME ONE Stop: 04/06/18 11:01 Lisinopril (Prinivil) 40 mg PO DAILY [facility] Lorazepam (Ativan) 1 mg IVPUSH ONETIME ONE Stop: 04/04/18 20:42 Last Admin: 04/04/18 21:01 Dose: 1 mg Methylprednisolone Sodium Succinate (Solu-Medrol) 40 mg IVPUSH Q6H [facility] Last Admin: 04/05/18 15:23 Dose: 40 mg Ondansetron HCl (Zofran) 8 mg IVPUSH ONETIME ONE Stop: 04/04/18 20:47 Last Admin: 04/04/18 20:59 Dose: 8 mg Ondansetron HCl (Zofran) 8 mg IVPUSH ONETIME ONE Stop: 04/04/18 22:48 Last Admin: 04/04/18 22:52 Dose: 8 mg Ondansetron HCl (Zofran) Confirm Administered Dose 8 mg .ROUTE .STK-MED ONE Stop: 04/04/18 22:49 Last Admin: 04/04/18 23:06 Dose: Not Given Triamcinolone Acetonide (Triamcinolone Acetonide 0.1% Crm) 15 gm TOP DAILY [facility] Triamcinolone Acetonide (Triamcinolone Acetonide 0.1% Crm) 15 gm TOP DAILY [facility] Last Admin: 04/05/18 11:59 Dose: 1 applic - Exam General: Alert, Oriented, Cooperative HEENT: Pupils Equal, Pupils Reactive Neck: Supple, Trachea Midline, No JVD, No Thyromegaly Lungs: Clear to Auscultation, Normal Respiratory Effort Cardiovascular: Regular Rate, Regular Rhythm, No Murmurs GI/Abdominal Exam: Normal Bowel Sounds, Soft, Non-Tender Back Exam: Normal Inspection Extremities: Normal Inspection Skin: Rash Neurological: No New Focal Deficit Psy/Mental Status: Alert, Normal Affect (extensive rash on the trunk and extremities ) - Problem List & Annotations (1) Unintentional weight loss SNOMED Code(s): 636971672 Code(s): R63.4 - ABNORMAL WEIGHT LOSS Status: Acute Current Visit: Yes (2) Alcohol withdrawal SNOMED Code(s): 856233464 Code(s): F10.239 - ALCOHOL DEPENDENCE WITH WITHDRAWAL, UNSPECIFIED Status: Acute Current Visit: Yes Qualifiers: Complication of substance-induced condition: uncomplicated Qualified Code(s ): F10.230 - Alcohol dependence with withdrawal, uncomplicated (3) Alcohol abuse SNOMED Code(s): 16897267 Code(s): F10.10 - ALCOHOL ABUSE, UNCOMPLICATED Status: Acute Current Visit: Yes (4) Dementia SNOMED Code(s): 39906635 Code(s): F03.90 - UNSPECIFIED DEMENTIA WITHOUT BEHAVIORAL DISTURBANCE Status: Acute Current Visit: Yes (5) Ventral hernia SNOMED Code(s): 643606561 Code(s): K43.9 - VENTRAL HERNIA WITHOUT OBSTRUCTION OR GANGRENE Status: Acute Current Visit: Yes (6) Skin rash SNOMED Code(s): 536984612 Code(s): R21 - RASH AND OTHER NONSPECIFIC SKIN ERUPTION Status: Acute Current Visit: Yes - Problem List Review Problem List Initiated/Reviewed/Updated: Yes - My Orders Last 24 Hours: My Active Orders 04/05/18 12:26 Code Status [Resuscitation Status] Routine 04/05/18 12:53 Patient Status [ADT] Routine 04/05/18 16:48 methylPREDNISolone Sod Succ [Solu-MEDROL] 60 mg IVPUSH Q6H 04/05/18 16:49 Consult to Physician [CONS] Routine 04/05/18 16:50 Notify Provider Consults [RC] ASDIRECTED 04/05/18 21:00 Patient's Own Medication [Ptom] 1 each PO BID Triamcinolone Acetonide [Triamcinolone Acetonide 0.1% Crm] 15 gm TOP BID atorvaSTATin [Lipitor] 40 mg PO BEDTIME 04/06/18 00:30 diphenhydrAMINE [Benadryl] 50 mg IVPUSH Q6H 04/06/18 05:43 RPR [REF] AM 04/06/18 07:30 Levothyroxine 112 mcg PO ACBREAKFAST 04/06/18 08:40 [employer] Discontinue [Cardiac Monitoring Discontinue] [RC] Click to Edit 04/06/18 09:00 Folic Acid/Vitamin B Comp W-C [Renal Caps Softgel] 1 cap PO DAILY Sertraline [Zoloft] 25 mg PO DAILY 04/06/18 11:30 Insulin Aspart [NovoLOG] See Protocol SUBCUT TIDAC 04/06/18 12:30 Ampicillin/Sulbactam Na [Unasyn] 3 gm Sodium Chloride 0.9% [Normal Saline] 100 ml IV Q6H 04/06/18 21:00 Thiamine [Vitamin B-1] 100 mg PO BEDTIME 04/06/18 21:30 VANCOMYCIN TROUGH [CHEM] Routine 04/07/18 05:00 BMP [BASIC METABOLIC PANEL,BMP] [CHEM] DAILY CBC WITH AUTO DIFF [HEME] DAILY 04/08/18 05:00 BMP [BASIC METABOLIC PANEL,BMP] [CHEM] DAILY CBC WITH AUTO DIFF [HEME] DAILY 04/09/18 05:00 BMP [BASIC METABOLIC PANEL,BMP] [CHEM] DAILY - Assessment Assessment:: d/c telemetry CIWA protocol IV fluids for dementia - will give patient thiamine 100 mg po daily , multivitamins , f/ up RPR , TSH mild elevated , B12 level, Ft4 - normal. Her cognitive function is better today For anxiety - continue sertraline 25 mg po daily For hypothyroidism - will order TSH For skin rash _ solumedrol 60 mg iv q 6 h , benadryl 50 mg iv q 6 h , doxepin 25 mg po daily triamcinolone 0.1 % bid topical, moisturizer cream vancomycin iv , pharmacy to dose, unasyn 3 grams iv q 6 h menthol paste topical for unintentional weight loss - CT abdomen and pelvis with and wo contrast- no malignancy Electrician Apprentice consult Gi prof: PPI
--- NOTE | 2018-04-06 15:47 | PCM.OPNOTE ---
- General Post-Op/Procedure Note Date of Surgery/Procedure: 04/06/18 Operative Procedure(s): skin biopsy Findings: L lower back area, with rash, a full thickness biopsy sent for path, incision 2.1 X 1.2 cm; [id number] Pre Op Diagnosis: skin rash Post-Op Diagnosis: Same Anesthesia Technique: Local Primary Surgeon: Korey Hanson Pathology: full thickness biopsy rash Complications: None Condition: Fair Free Text/Narrative:: Intake & Output 04/06/18 04/06/18 04/06/18 06:59 14:59 22:59 Intake Total 1972 Output Total 300 Balance 8472
[2018-04-06] MEDS: Lactated Ringers 1,000 ML IV SCH (18:08)
--- NOTE | 2018-04-06 19:24 | OR ---
SURGEON: Korey Hanson MD DATE OF PROCEDURE: 04/06/2018 PREOPERATIVE DIAGNOSIS: Skin rash. POSTOPERATIVE DIAGNOSIS: Skin rash. PROCEDURE PERFORMED: Biopsy of the back rash. COMPLICATIONS: None. FINDING: The patient has basically full body rash exactly on the place that is sun exposed and biopsy done at the lower left back, and incision 2.1 cm. PROCEDURE IN DETAIL: The procedure was performed on the bedside in the hospital room and informed consent with the patient and written signed in the chart. Time-out was being called, patient identified, procedure identified, and procedure started. The patient was sitting on stooping position and the lower back area prepped and draped in a sterile fashion. Local anesthetic 1% lidocaine with epi was infiltrated. Using a skin knife, a full-thickness mesh 2.1 x 1.2 cm was made and all the way down to the subcutaneous and specimen sent to pathology and hemostasis achieved by use of compression and the wound was then closed with 3-0 Ethilon simple interrupted, followed by appropriate dressing. Patient tolerated procedure well. There were no intraoperative complications. Dr. Hanson was present through the whole procedure. As always, thank you for the kind referral. ROSAMARIA / VIJAY /[id number]
[2018-04-06] MEDS ORDERED: Doxepin 25 MG Cap PO ONE (19:50)
[2018-04-06] MEDS ORDERED: Multivitamins with Minerals and Iron Liquid ML 240 ML Bottle PO SCH (20:15)
[2018-04-06] MEDS: Pantoprazole 40 MG Vial IVPUSH SCH (21:24)
[2018-04-06] MEDS: Thiamine 100 MG Tab PO SCH (21:28)
[2018-04-06] MEDS: atorvaSTATin 40 MG Tab PO SCH (21:28)
[2018-04-06] MEDS: Multivitamin Tab PO SCH (23:09)
[2018-04-06] MEDS: Mineral Oil/White Petrolatum Crm 113 GM Jar TOP SCH (23:57)
[2018-04-07] MEDS: diphenhydrAMINE 50 MG/ML SDV IVPUSH SCH ×5 (00:51→23:30)
[2018-04-07] MEDS: Ampicillin/Sulbactam Na 3 GM in Sodium Chloride 0.9% 100 ML IV SCH ×4 (00:56→17:33)
[2018-04-07] MEDS: methylPREDNISolone Sodium Succinate 125 MG/2 ML SDV IVPUSH SCH ×3 (05:39→17:33)
[2018-04-07 05:56] LABS: CHLORIDE,CL 109 mmol/L (98-107); SODIUM,NA 141 mmol/L (136-145)
[2018-04-07] MEDS: Levothyroxine 112 MCG Tab PO SCH (06:40)
[2018-04-07] MEDS: Lactated Ringers 1,000 ML IV SCH ×2 (06:43→21:20)
[2018-04-07] MEDS: Insulin Aspart 100 Units/ML 3 ML Pen SUBCUT SCH ×3 (06:59→17:01)
[2018-04-07] MEDS: Acetaminophen/oxyCODONE 325-5 MG Tab PO PRN ×3 (08:01→21:47)
--- NOTE | 2018-04-07 08:17 | CONS ---
DATE OF CONSULTATION: 04/06/2018 DATE OF : 1960 PRIMARY CARE PHYSICIAN: None PCP Consult was called, the patient was seen shortly after. CONCERNING QUESTION: Skin rash. HISTORY OF PRESENT ILLNESS: The patient is a 58-year-old lady, who was admitted to the hospitalist for what appearing like alcohol withdrawal symptoms, shaking, dementia, and failure to thrive, and during the hospitalization, the patient was noted to have a rash and Surgery was consulted for possible biopsy of the rash. The patient remarked that the rash has been there for eight months. Surprisingly, the patient has a very clear mind. She has had the rash for exactly eight months, and it itches but otherwise does not do anything. Denied trauma and denied prior episode and denied seeing a doctor for the rash. PAST MEDICAL HISTORY: Significant for abdominal hernia, alcohol abuse with daily alcohol use, anxiety, depression, arthritis, cellulitis, back contusion, eczema, elevated alkaline phosphatase level, heart murmur, hypertension, high cholesterol, hyponatremia, history of hypothyroid, macrocytic anemia, medically noncompliant, psoriasis, rash, scabies, and tobacco abuse. PAST SURGICAL HISTORY: Normal vaginal delivery x3. FAMILY HISTORY: Noncontributory. ALLERGIES: Please refer to nursing note for details. MEDICATIONS: Please refer to nursing note for details. PHYSICAL EXAMINATION: GENERAL: Cachectic appearance, petite lady, in no acute distress. The patient has no teeth. She remarked that she did not take care of her teeth. Again, she is quite alert and catching well with the conversation with doctor. HEENT: Normocephalic and atraumatic. No teeth. HEART: Regular rate and rhythm with murmur. LUNGS: Clear to auscultation. ABDOMEN: Has a gigantic hernia bigger than her head. No surgical scar and nontender. SKIN: Basically has rash from the neck all the way on both extremity, and basically on anything that is covered by her clothes, she has a rash. However, the rashes are of two different kinds; the one on the lower extremities and on the elbow is clearly psoriasis, it is a psoriatic outbreak, and shows also carries a diagnosis of psoriasis. Then, on her neck and on the back, does look like there is a blanching eczema. IMPRESSION/PLAN: Psoriatic rash outbreak plus rash on the back, and we will check with the patient's use of steroids. May be alright to have a biopsy at the bedside; however, it is not urgent. Her biggest problem at this stage is unexplained weight loss, as well as a gigantic hernia that needs to be addressed, preferably in a tertiary care center. We will get back to you regarding the biopsy of skin, likely would be trying to do on her back, as the lower extremities had also psoriasis appearance. As always, thank you for the kind referral. ROSAMARIA LINARES /[id number]
[2018-04-07] MEDS: Lisinopril 10 MG Tab PO SCH (09:20)
[2018-04-07] MEDS: Multivitamin Tab PO SCH (09:21)
[2018-04-07] MEDS: Folic Acid/Vitamin B Complex With C Cap PO SCH (09:21)
[2018-04-07] MEDS: Mineral Oil/White Petrolatum Crm 113 GM Jar TOP SCH ×2 (09:22→21:43)
[2018-04-07] MEDS: Sertraline 50 MG Tab PO SCH (09:23)
[2018-04-07] MEDS: Triamcinolone Acetonide 0.1% Crm 15 GM Tube TOP SCH ×2 (09:24→21:06)
[2018-04-07] MEDS: CALCIPOTRIENE 1 GM PO SCH (09:31)
[2018-04-07] MEDS: Pantoprazole 40 MG Vial IVPUSH SCH (09:52)
[2018-04-07] MEDS ORDERED: Doxepin 25 MG Cap PO ONE (14:49)
--- NOTE | 2018-04-07 18:48 | PCM.PN ---
- General Info Date of Service: 04/07/18 Subjective Update: patient feeling better . Her rash biopsy shows chronic dermatitis , psoriatic form. Has tremor in her hands . HB today is 8 .Her rash has significant improvement. - Review of Systems General: Reports: No Symptoms HEENT: Reports: No Symptoms Pulmonary: Reports: No Symptoms Cardiovascular: Reports: No Symptoms Gastrointestinal: Reports: Other (large ventral hernia) Genitourinary: Reports: No Symptoms Musculoskeletal: Reports: No Symptoms Skin: Reports: Rash Neurological: Reports: No Symptoms Psychiatric: Reports: No Symptoms - Patient Data Vitals - Most Recent: Last Vital Signs Temp 97.7 F 04/07/18 15:56 Pulse 77 04/07/18 15:56 Resp 95 H 04/07/18 15:56 BP 150/91 H 04/07/18 15:56 Pulse Ox 93 L 04/07/18 12:00 Weight - Most Recent: 121 lb 6.4 oz I&O - Last 24 Hours: Intake & Output 04/07/18 04/07/18 04/07/18 06:59 14:59 22:59 Intake Total 1890 1994 Output Total 650 250 Balance 1240 1744 Lab Results Last 24 Hours: Laboratory Results - last 24 hr 04/06/18 04/06/18 04/07/18 Range/Units 05:43 21:38 05:33 WBC 11.14 H (4.0-11.0) K/uL RBC 2.40 L (4.30-5.90) M/uL Hgb 8.1 L (12.0-16.0) g/dL Hct 24.8 L (36.0-46.0) % MCV 103.3 H (80.0-98.0) fL MCH 33.8 H (27.0-32.0) pg MCHC 32.7 (31.0-37.0) g/dL RDW Std Deviation 50.8 (28.0-62.0) fl RDW Coeff of Amrik 14 (11.0-15.0) % Plt Count 356 (150-400) K/uL MPV 9.50 (7.40-12.00) fL Neut % (Auto) 83.7 H (48.0-80.0) % Lymph % (Auto) 12.7 L (16.0-40.0) % [place] % (Auto) 3.5 (0.0-15.0) % Eos % (Auto) 0.0 (0.0-7.0) % Baso % (Auto) 0.1 (0.0-1.5) % Neut # (Auto) 9.3 H (1.4-5.7) K/uL Lymph # (Auto) 1.4 (0.6-2.4) K/uL [place] # (Auto) 0.4 (0.0-0.8) K/uL Eos # (Auto) 0.0 (0.0-0.7) K/uL Baso # (Auto) 0.0 (0.0-0.1) K/uL Nucleated RBC % 0.0 /100WBC Nucleated RBCs # 0 K/uL Sodium (136-145) mmol/L Potassium (3.5-5.1) mmol/L Chloride (98-107) mmol/L Carbon Dioxide (21.0-32.0) mmol/L BUN (7.0-18.0) mg/dL Creatinine (0.6-1.0) mg/dL Est Cr Clr Drug Dosing mL/min Estimated GFR (MDRD) ml/min Glucose (74-106) mg/dL POC Glucose (60-110) mg/dL Calcium (8.5-10.1) mg/dL Vancomycin Trough 18.4 H (5.0-10.0) ug/mL RPR Non-Reac (Non-Reac) 04/07/18 04/07/18 04/07/18 Range/Units 05:33 06:17 12:03 WBC (4.0-11.0) K/uL RBC (4.30-5.90) M/uL Hgb (12.0-16.0) g/dL Hct (36.0-46.0) % MCV (80.0-98.0) fL MCH (27.0-32.0) pg MCHC (31.0-37.0) g/dL RDW Std Deviation (28.0-62.0) fl RDW Coeff of Amrik (11.0-15.0) % Plt Count (150-400) K/uL MPV (7.40-12.00) fL Neut % (Auto) (48.0-80.0) % Lymph % (Auto) (16.0-40.0) % [place] % (Auto) (0.0-15.0) % Eos % (Auto) (0.0-7.0) % Baso % (Auto) (0.0-1.5) % Neut # (Auto) (1.4-5.7) K/uL Lymph # (Auto) (0.6-2.4) K/uL [place] # (Auto) (0.0-0.8) K/uL Eos # (Auto) (0.0-0.7) K/uL Baso # (Auto) (0.0-0.1) K/uL Nucleated RBC % /100WBC Nucleated RBCs # K/uL Sodium 141 (136-145) mmol/L Potassium 4.2 (3.5-5.1) mmol/L Chloride 109 H (98-107) mmol/L Carbon Dioxide 26.2 (21.0-32.0) mmol/L BUN 28 H (7.0-18.0) mg/dL Creatinine 0.8 (0.6-1.0) mg/dL Est Cr Clr Drug Dosing 65.82 mL/min Estimated GFR (MDRD) > 60.0 ml/min Glucose 136 H (74-106) mg/dL POC Glucose 141 H 132 H (60-110) mg/dL Calcium 8.8 (8.5-10.1) mg/dL Vancomycin Trough (5.0-10.0) ug/mL RPR (Non-Reac) 04/07/18 Range/Units 16:34 WBC (4.0-11.0) K/uL RBC (4.30-5.90) M/uL Hgb (12.0-16.0) g/dL Hct (36.0-46.0) % MCV (80.0-98.0) fL MCH (27.0-32.0) pg MCHC (31.0-37.0) g/dL RDW Std Deviation (28.0-62.0) fl RDW Coeff of Amrik (11.0-15.0) % Plt Count (150-400) K/uL MPV (7.40-12.00) fL Neut % (Auto) (48.0-80.0) % Lymph % (Auto) (16.0-40.0) % [place] % (Auto) (0.0-15.0) % Eos % (Auto) (0.0-7.0) % Baso % (Auto) (0.0-1.5) % Neut # (Auto) (1.4-5.7) K/uL Lymph # (Auto) (0.6-2.4) K/uL [place] # (Auto) (0.0-0.8) K/uL Eos # (Auto) (0.0-0.7) K/uL Baso # (Auto) (0.0-0.1) K/uL Nucleated RBC % /100WBC Nucleated RBCs # K/uL Sodium (136-145) mmol/L Potassium (3.5-5.1) mmol/L Chloride (98-107) mmol/L Carbon Dioxide (21.0-32.0) mmol/L BUN (7.0-18.0) mg/dL Creatinine (0.6-1.0) mg/dL Est Cr Clr Drug Dosing mL/min Estimated GFR (MDRD) ml/min Glucose (74-106) mg/dL POC Glucose 131 H (60-110) mg/dL Calcium (8.5-10.1) mg/dL Vancomycin Trough (5.0-10.0) ug/mL RPR (Non-Reac) Med Orders - Current: Current Medications Acetaminophen (Tylenol) 650 mg PO Q6H PRN PRN Reason: Pain Albuterol/Ipratropium (Duoneb 3.0-0.5 Mg/3 Ml) 3 ml NEB Q4HRRT PRN PRN Reason: SOB/wheezing Last Admin: 04/05/18 11:47 Dose: 3 ml Atorvastatin Calcium (Lipitor) 40 mg PO BEDTIME AMY Last Admin: 04/06/18 21:28 Dose: 40 mg Calamine/Phenol (Gold Sultana Medicated Body Pwd) 1 gm TOP BID PRN PRN Reason: pruritus Diphenhydramine HCl (Benadryl) 50 mg IVPUSH Q6H AMY Last Admin: 04/07/18 17:37 Dose: 50 mg Lactated Ringer's (Ringers, Lactated) 1,000 mls @ 100 mls/hr IV ASDIRECTED AMY Last Admin: 04/07/18 06:43 Dose: 100 mls/hr Vancomycin HCl 1 gm/ Sodium (Chloride) 250 mls @ 166.667 mls/hr IV Q12H [facility] [place] Last Admin: 04/07/18 11:24 Dose: 166.667 mls/hr Ampicillin Sodium/Sulbactam (Sodium 3 gm/ Sodium Chloride) 100 mls @ 200 mls/ hr IV Q6H [facility] [place] Last Admin: 04/07/18 17:33 Dose: 200 mls/hr Insulin Aspart (Novolog) 0 unit SUBCUT TIDAC [facility] [place]; Protocol Last Admin: 04/07/18 17:01 Dose: Not Given Levothyroxine Sodium (Levothyroxine) 112 mcg PO ACBREAKFAST [facility] [place] Last Admin: 04/07/18 06:40 Dose: 112 mcg Lisinopril (Prinivil) 40 mg PO DAILY [facility] [place] Last Admin: 04/07/18 09:20 Dose: 40 mg Lorazepam (Ativan) 0 mg IVPUSH Q4H PRN; Protocol PRN Reason: Withdrawal Symptoms Last Admin: 04/06/18 00:57 Dose: 1 mg Methylprednisolone Sodium Succinate (Solu-Medrol) 60 mg IVPUSH Q6H [facility] [place] Last Admin: 04/07/18 17:33 Dose: 60 mg Mineral Oil/White Petrolatum (Hydrocerin Crm) 0 gm TOP BID [facility] [place] Last Admin: 04/07/18 09:22 Dose: Not Given Multivit/Ca Carb/B Cmplx/FA/Prenat (Renal Caps Softgel) 1 cap PO DAILY [facility] [place] Last Admin: 04/07/18 09:21 Dose: 1 cap Multivitamins/Minerals/Vitamin C (Tab-A-Carol) 1 tab PO DAILY [facility] [place] Last Admin: 04/07/18 09:21 Dose: 1 tab Ondansetron HCl (Zofran) 4 mg IVPUSH Q4H PRN PRN Reason: Nausea/Vomiting Last Admin: 04/05/18 09:54 Dose: 4 mg Oxycodone/Acetaminophen (Percocet 325-5 Mg) 1 tab PO Q4H PRN PRN Reason: Pain Last Admin: 04/07/18 15:10 Dose: 1 tab Pantoprazole Sodium (Protonix Iv) 40 mg IVPUSH DAILY [facility] [place] Last Admin: 08/30/18 09:52 Dose: 40 mg Calcipotriene [ (Calcitrene] 1 Gm) 1 each TOP BID [facility] [place] Promethazine HCl (Phenergan) 12.5 mg IM Q4H PRN PRN Reason: Vomiting Last Admin: 04/05/18 12:51 Dose: 12.5 mg Sertraline HCl (Zoloft) 25 mg PO DAILY [facility] [place] Last Admin: 04/07/18 09:23 Dose: 25 mg Sodium Chloride (Saline Flush) 10 ml FLUSH ASDIRECTED PRN PRN Reason: Keep Vein Open Sodium Chloride (Saline Flush) 2.5 ml FLUSH ASDIRECTED PRN PRN Reason: Keep Vein Open Thiamine HCl (Vitamin B-1) 100 mg PO BEDTIME [facility] [place] Last Admin: 04/06/18 21:28 Dose: 100 mg Triamcinolone Acetonide (Triamcinolone Acetonide 0.1% Crm) 15 gm TOP BID [facility] [place] Last Admin: 04/07/18 09:24 Dose: 1 applic Vancomycin HCl (Pharmacy To Dose - Vancomycin) 1 dose .XX ASDIRECTED AMY Discontinued Medications Cephalexin (Keflex) 500 mg PO QID [facility] [place] Diphenhydramine HCl (Benadryl) 50 mg IVPUSH Q6H PRN PRN Reason: Itching Last Admin: 04/05/18 16:59 Dose: 50 mg Doxepin HCl (Sinequan) 25 mg PO ONETIME ONE Stop: 04/05/18 16:49 Last Admin: 04/05/18 17:03 Dose: 25 mg Doxepin HCl (Sinequan) 25 mg PO ONETIME ONE Stop: 04/06/18 19:51 Last Admin: 04/06/18 21:28 Dose: 25 mg Doxepin HCl (Sinequan) 25 mg PO ONETIME ONE Stop: 04/07/18 14:50 Last Admin: 04/07/18 15:07 Dose: 25 mg Multivitamins/Minerals 10 ml/Thiamine HCl 100 mg/ Folic Acid 1 mg/ Sodium Chloride 1,011.2 mls @ 250 drops/min IV ONETIME ONE Stop: 04/04/18 21:46 Last Admin: 04/04/18 22:00 Dose: 250 drops/min Ampicillin Sodium/Sulbactam (Sodium 3 gm/ Sodium Chloride) 100 mls @ 200 mls/ hr IV Q6H [facility] [place] Last Admin: 04/06/18 05:44 Dose: 200 mls/hr Lidocaine/Epinephrine (Xylocaine 1% With Epinephrine 1:100,000) 20 ml INJECT ONETIME ONE Stop: 04/06/18 11:01 Last Admin: 04/06/18 13:08 Dose: 20 ml Lisinopril (Prinivil) 40 mg PO DAILY [facility] [place] Lorazepam (Ativan) 1 mg IVPUSH ONETIME ONE Stop: 04/04/18 20:42 Last Admin: 04/04/18 21:01 Dose: 1 mg Methylprednisolone Sodium Succinate (Solu-Medrol) 40 mg IVPUSH Q6H [facility] [place] Last Admin: 04/05/18 15:23 Dose: 40 mg Ondansetron HCl (Zofran) 8 mg IVPUSH ONETIME ONE Stop: 04/04/18 20:47 Last Admin: 04/04/18 20:59 Dose: 8 mg Ondansetron HCl (Zofran) 8 mg IVPUSH ONETIME ONE Stop: 04/04/18 22:48 Last Admin: 04/04/18 22:52 Dose: 8 mg Ondansetron HCl (Zofran) Confirm Administered Dose 8 mg .ROUTE .STK-MED ONE Stop: 04/04/18 22:49 Last Admin: 04/04/18 23:06 Dose: Not Given Calcipotriene [ (Calcitrene] 1 Gm) 1 each PO BID [facility] [place] Last Admin: 04/07/18 09:31 Dose: Not Given Triamcinolone Acetonide (Triamcinolone Acetonide 0.1% Crm) 15 gm TOP DAILY [facility] [place] Triamcinolone Acetonide (Triamcinolone Acetonide 0.1% Crm) 15 gm TOP DAILY [facility] [place] Last Admin: 04/05/18 11:59 Dose: 1 applic - Exam General: Alert, Oriented, Cooperative HEENT: Pupils Equal, Pupils Reactive Neck: Supple, Trachea Midline, No JVD Lungs: Clear to Auscultation, Normal Respiratory Effort Cardiovascular: Regular Rate, Regular Rhythm GI/Abdominal Exam: Normal Bowel Sounds, Soft, Non-Tender, Hernia (large ventral hernia) Extremities: Normal Inspection Skin: Rash Neurological: No New Focal Deficit Psy/Mental Status: Alert, Normal Affect - Problem List & Annotations (1) Unintentional weight loss SNOMED Code(s): 446436262 Code(s): R63.4 - ABNORMAL WEIGHT LOSS Status: Acute Current Visit: Yes (2) Alcohol withdrawal SNOMED Code(s): 415680844 Code(s): F10.239 - ALCOHOL DEPENDENCE WITH WITHDRAWAL, UNSPECIFIED Status: Acute Current Visit: Yes Qualifiers: Complication of substance-induced condition: uncomplicated Qualified Code(s ): F10.230 - Alcohol dependence with withdrawal, uncomplicated (3) Alcohol abuse SNOMED Code(s): 39951348 Code(s): F10.10 - ALCOHOL ABUSE, UNCOMPLICATED Status: Acute Current Visit: Yes (4) Dementia SNOMED Code(s): 44827400 Code(s): F03.90 - UNSPECIFIED DEMENTIA WITHOUT BEHAVIORAL DISTURBANCE Status: Acute Current Visit: Yes (5) Ventral hernia SNOMED Code(s): 795284046 Code(s): K43.9 - VENTRAL HERNIA WITHOUT OBSTRUCTION OR GANGRENE Status: Acute Current Visit: Yes (6) Skin rash SNOMED Code(s): 909076086 Code(s): R21 - RASH AND OTHER NONSPECIFIC SKIN ERUPTION Status: Acute Current Visit: Yes (7) Anemia SNOMED Code(s): 570622620 Code(s): D64.9 - ANEMIA, UNSPECIFIED Status: Acute Current Visit: Yes - Problem List Review Problem List Initiated/Reviewed/Updated: Yes - My Orders Last 24 Hours: My Active Orders 04/06/18 20:15 Pantoprazole [ProTONIX IV] 40 mg IVPUSH DAILY 04/06/18 21:00 Mineral Oil/Petrolatum,White [Hydrocerin Crm] 0 gm TOP BID Thiamine [Vitamin B-1] 100 mg PO BEDTIME 04/06/18 21:30 Multivitamins [Tab-A-Carol] 1 tab PO DAILY 04/07/18 08:00 Occult Blood Diagnostic GI [OCCULT BLOOD DIAGNOSTIC] [OP] Routine 04/07/18 09:46 Patient's Own Medication [Ptom] 1 each TOP BID 04/07/18 12:56 OT Evaluation and Treatment [CONS] Routine PT Evaluation and Treatment [CONS] Routine 04/08/18 05:00 BMP [BASIC METABOLIC PANEL,BMP] [CHEM] DAILY CBC WITH AUTO DIFF [HEME] DAILY 04/08/18 09:30 VANCOMYCIN TROUGH [CHEM] Routine 04/09/18 05:00 BMP [BASIC METABOLIC PANEL,BMP] [CHEM] DAILY - Assessment Assessment:: d/c telemetry [facility] protocol IV fluids for dementia - will give patient thiamine 100 mg po daily , multivitamins , f/ up RPR , TSH mild elevated , B12 level, Ft4 - normal. Her cognitive function is better today For anxiety - increase sertraline to 50 mg po daily For skin rash _ will discontinue solumedrol and will start patient on prednisone po from tomorrow triamcinolone 0.1 % bid topical, moisturizer cream D/c vancomycin iv , pharmacy to dose, D/c unasynunasyn 3 grams iv q 6 h menthol paste topical Gi prof: PPI For anemia- will do iron studies, folic acid level , FOBT
[2018-04-07] MEDS ORDERED: Polyethylene Glycol 3350 Powder 17 GM Packet PO ONE (18:57)
[2018-04-07] MEDS: CALCIPOTRIENE 1 GM TOP SCH (20:53)
[2018-04-07] MEDS: Thiamine 100 MG Tab PO SCH (21:05)
[2018-04-07] MEDS: Amoxicillin/Clavulanate K 875-125 MG Tab PO SCH (21:05)
[2018-04-07] MEDS: atorvaSTATin 40 MG Tab PO SCH (21:05)
[2018-04-08] MEDS: methylPREDNISolone Sodium Succinate 40 MG/1 ML SDV IVPUSH SCH ×4 (01:34→22:02)
[2018-04-08 05:47] LABS: CHLORIDE,CL 106 mmol/L (98-107); SODIUM,NA 138 mmol/L (136-145)
[2018-04-08] MEDS: Insulin Aspart 100 Units/ML 3 ML Pen SUBCUT SCH ×3 (06:34→19:12)
[2018-04-08] MEDS: Levothyroxine 112 MCG Tab PO SCH (06:41)
[2018-04-08] MEDS: diphenhydrAMINE 50 MG/ML SDV IVPUSH SCH ×3 (06:42→19:07)
[2018-04-08] MEDS: Lactated Ringers 1,000 ML IV SCH ×2 (06:46→16:27)
[2018-04-08] MEDS: Sertraline 50 MG Tab PO SCH (08:03)
[2018-04-08] MEDS: Multivitamin Tab PO SCH (08:04)
[2018-04-08] MEDS: Folic Acid/Vitamin B Complex With C Cap PO SCH (08:04)
[2018-04-08] MEDS: Cholecalciferol (Vitamin D3) 1,000 Unit Tab PO SCH (08:04)
[2018-04-08] MEDS: Lisinopril 10 MG Tab PO SCH (08:05)
[2018-04-08] MEDS: Amoxicillin/Clavulanate K 875-125 MG Tab PO SCH ×2 (08:06→22:02)
[2018-04-08] MEDS: Pantoprazole 40 MG Vial IVPUSH SCH (08:06)
[2018-04-08] MEDS: Acetaminophen/oxyCODONE 325-5 MG Tab PO PRN ×2 (08:23→12:29)
[2018-04-08] MEDS: Triamcinolone Acetonide 0.1% Crm 80 GM Tube TOP SCH ×2 (12:21→22:04)
--- NOTE | 2018-04-08 13:18 | PCM.SURGPN ---
- General Info Date of Service: 04/08/18 Functional Status: Reports: Pain Controlled - Review of Systems General: Reports: No Symptoms - Patient Data Vitals - Most Recent: Last Vital Signs Temp 98.4 F 04/08/18 03:39 Pulse 73 04/08/18 03:39 Resp 18 04/08/18 03:39 BP 138/62 04/08/18 03:39 Pulse Ox 93 L 04/08/18 03:39 Weight - Most Recent: 121 lb 6.4 oz I&O - Last 24 Hours: Intake & Output 04/07/18 04/08/18 04/08/18 22:59 06:59 14:59 Intake Total 1993 1712 Output Total 250 400 Balance 1744 1313 Lab Results Last 24 Hrs: Laboratory Results - last 24 hr 04/06/18 04/07/18 04/07/18 Range/Units 05:43 16:34 19:10 WBC (4.0-11.0) K/uL RBC (4.30-5.90) M/uL Hgb (12.0-16.0) g/dL Hct (36.0-46.0) % MCV (80.0-98.0) fL MCH (27.0-32.0) pg MCHC (31.0-37.0) g/dL RDW Std Deviation (28.0-62.0) fl RDW Coeff of Amrik (11.0-15.0) % Plt Count (150-400) K/uL MPV (7.40-12.00) fL Neut % (Auto) (48.0-80.0) % Lymph % (Auto) (16.0-40.0) % Carroll % (Auto) (0.0-15.0) % Eos % (Auto) (0.0-7.0) % Baso % (Auto) (0.0-1.5) % Neut # (Auto) (1.4-5.7) K/uL Lymph # (Auto) (0.6-2.4) K/uL Carroll # (Auto) (0.0-0.8) K/uL Eos # (Auto) (0.0-0.7) K/uL Baso # (Auto) (0.0-0.1) K/uL Nucleated RBC % /100WBC Nucleated RBCs # K/uL Sodium (136-145) mmol/L Potassium (3.5-5.1) mmol/L Chloride (98-107) mmol/L Carbon Dioxide (21.0-32.0) mmol/L BUN (7.0-18.0) mg/dL Creatinine (0.6-1.0) mg/dL Est Cr Clr Drug Dosing mL/min Estimated GFR (MDRD) ml/min Glucose (74-106) mg/dL POC Glucose 131 H (60-110) mg/dL Calcium (8.5-10.1) mg/dL Iron 88 (50-175) ug/dL TIBC 223 L (250-450) ug/dL % Saturation 39.46 (20-55) % Ferritin 362 H (8-252) ng/mL Folate (8.60-58.90) ng/mL Vancomycin Trough (5.0-10.0) ug/mL RPR Non-Reac (Non-Reac) 04/07/18 04/08/18 04/08/18 Range/Units 19:10 05:04 05:04 WBC 9.95 (4.0-11.0) K/uL RBC 2.46 L (4.30-5.90) M/uL Hgb 8.3 L (12.0-16.0) g/dL Hct 25.3 L (36.0-46.0) % MCV 102.8 H (80.0-98.0) fL MCH 33.7 H (27.0-32.0) pg MCHC 32.8 (31.0-37.0) g/dL RDW Std Deviation 50.8 (28.0-62.0) fl RDW Coeff of Amrki 13 (11.0-15.0) % Plt Count 369 (150-400) K/uL MPV 9.90 (7.40-12.00) fL Neut % (Auto) 80.5 H (48.0-80.0) % Lymph % (Auto) 13.6 L (16.0-40.0) % Carroll % (Auto) 5.8 (0.0-15.0) % Eos % (Auto) 0.0 (0.0-7.0) % Baso % (Auto) 0.1 (0.0-1.5) % Neut # (Auto) 8.0 H (1.4-5.7) K/uL Lymph # (Auto) 1.4 (0.6-2.4) K/uL Carroll # (Auto) 0.6 (0.0-0.8) K/uL Eos # (Auto) 0.0 (0.0-0.7) K/uL Baso # (Auto) 0.0 (0.0-0.1) K/uL Nucleated RBC % 0.0 /100WBC Nucleated RBCs # 0 K/uL Sodium 138 (136-145) mmol/L Potassium 3.9 (3.5-5.1) mmol/L Chloride 106 (98-107) mmol/L Carbon Dioxide 26.2 (21.0-32.0) mmol/L BUN 28 H (7.0-18.0) mg/dL Creatinine 0.9 (0.6-1.0) mg/dL Est Cr Clr Drug Dosing 58.51 mL/min Estimated GFR (MDRD) > 60.0 ml/min Glucose 129 H (74-106) mg/dL POC Glucose (60-110) mg/dL Calcium 8.8 (8.5-10.1) mg/dL Iron (50-175) ug/dL TIBC (250-450) ug/dL % Saturation (20-55) % Ferritin (8-252) ng/mL Folate 37.40 (8.60-58.90) ng/mL Vancomycin Trough (5.0-10.0) ug/mL RPR (Non-Reac) 04/08/18 04/08/18 04/08/18 Range/Units 06:13 10:00 11:44 WBC (4.0-11.0) K/uL RBC (4.30-5.90) M/uL Hgb (12.0-16.0) g/dL Hct (36.0-46.0) % MCV (80.0-98.0) fL MCH (27.0-32.0) pg MCHC (31.0-37.0) g/dL RDW Std Deviation (28.0-62.0) fl RDW Coeff of Amrik (11.0-15.0) % Plt Count (150-400) K/uL MPV (7.40-12.00) fL Neut % (Auto) (48.0-80.0) % Lymph % (Auto) (16.0-40.0) % Carroll % (Auto) (0.0-15.0) % Eos % (Auto) (0.0-7.0) % Baso % (Auto) (0.0-1.5) % Neut # (Auto) (1.4-5.7) K/uL Lymph # (Auto) (0.6-2.4) K/uL Carroll # (Auto) (0.0-0.8) K/uL Eos # (Auto) (0.0-0.7) K/uL Baso # (Auto) (0.0-0.1) K/uL Nucleated RBC % /100WBC Nucleated RBCs # K/uL Sodium (136-145) mmol/L Potassium (3.5-5.1) mmol/L Chloride (98-107) mmol/L Carbon Dioxide (21.0-32.0) mmol/L BUN (7.0-18.0) mg/dL Creatinine (0.6-1.0) mg/dL Est Cr Clr Drug Dosing mL/min Estimated GFR (MDRD) ml/min Glucose (74-106) mg/dL POC Glucose 133 H 101 (60-110) mg/dL Calcium (8.5-10.1) mg/dL Iron (50-175) ug/dL TIBC (250-450) ug/dL % Saturation (20-55) % Ferritin (8-252) ng/mL Folate (8.60-58.90) ng/mL Vancomycin Trough 13.7 H (5.0-10.0) ug/mL RPR (Non-Reac) Med Orders - Current: Current Medications Acetaminophen (Tylenol) 650 mg PO Q6H PRN PRN Reason: Pain Albuterol/Ipratropium (Duoneb 3.0-0.5 Mg/3 Ml) 3 ml NEB Q4HRRT PRN PRN Reason: SOB/wheezing Last Admin: 04/05/18 11:47 Dose: 3 ml Amoxicillin/Clavulanate Potassium (Augmentin 875 Mg/125 Mg) 1 tab PO Q12HR [facility] Last Admin: 04/08/18 08:06 Dose: 1 tab Atorvastatin Calcium (Lipitor) 40 mg PO BEDTIME [facility] Last Admin: 04/07/18 21:05 Dose: 40 mg Calamine/Phenol (Gold Sultana Medicated Body Pwd) 1 gm TOP BID PRN PRN Reason: pruritus Cholecalciferol (Vitamin D3) 2,000 units PO DAILY [facility] Last Admin: 04/08/18 08:04 Dose: 2,000 units Diphenhydramine HCl (Benadryl) 50 mg IVPUSH Q6H [facility] Last Admin: 04/08/18 12:29 Dose: 50 mg Lactated Ringer's (Ringers, Lactated) 1,000 mls @ 100 mls/hr IV ASDIRECTED [facility] Last Admin: 04/08/18 06:46 Dose: 100 mls/hr Insulin Aspart (Novolog) 0 unit SUBCUT TIDAC [facility]; Protocol Last Admin: 04/08/18 11:30 Dose: Not Given Levothyroxine Sodium (Levothyroxine) 112 mcg PO ACBREAKFAST [facility] Last Admin: 04/08/18 06:41 Dose: 112 mcg Lisinopril (Prinivil) 40 mg PO DAILY [facility] Last Admin: 04/08/18 08:05 Dose: 40 mg Lorazepam (Ativan) 0 mg IVPUSH Q4H PRN; Protocol PRN Reason: Withdrawal Symptoms Last Admin: 04/06/18 00:57 Dose: 1 mg Methylprednisolone Sodium Succinate (Solu-Medrol) 40 mg IVPUSH Q8H [facility] Last Admin: 04/08/18 11:26 Dose: 40 mg Mineral Oil/White Petrolatum (Hydrocerin Crm) 0 gm TOP BID [facility] Last Admin: 04/07/18 21:43 Dose: Not Given Multivit/Ca Carb/B Cmplx/FA/Prenat (Renal Caps Softgel) 1 cap PO DAILY [facility] Last Admin: 04/08/18 08:04 Dose: 1 cap Multivitamins/Minerals/Vitamin C (Tab-A-Carol) 1 tab PO DAILY [facility] Last Admin: 04/08/18 08:04 Dose: 1 tab Ondansetron HCl (Zofran) 4 mg IVPUSH Q4H PRN PRN Reason: Nausea/Vomiting Last Admin: 04/05/18 09:54 Dose: 4 mg Oxycodone/Acetaminophen (Percocet 325-5 Mg) 1 tab PO Q4H PRN PRN Reason: Pain Last Admin: 04/08/18 12:29 Dose: 1 tab Pantoprazole Sodium (Protonix Iv) 40 mg IVPUSH DAILY [facility] Last Admin: 04/08/18 08:06 Dose: 40 mg Calcipotriene [ (Calcitrene] 1 Gm) 1 each TOP BID [facility] Last Admin: 04/07/18 20:53 Dose: 1 each Promethazine HCl (Phenergan) 12.5 mg IM Q4H PRN PRN Reason: Vomiting Last Admin: 04/05/18 12:51 Dose: 12.5 mg Sertraline HCl (Zoloft) 25 mg PO DAILY [facility] Last Admin: 04/08/18 08:03 Dose: 25 mg Sodium Chloride (Saline Flush) 10 ml FLUSH ASDIRECTED PRN PRN Reason: Keep Vein Open Sodium Chloride (Saline Flush) 2.5 ml FLUSH ASDIRECTED PRN PRN Reason: Keep Vein Open Thiamine HCl (Vitamin B-1) 100 mg PO BEDTIME [facility] Last Admin: 04/07/18 21:05 Dose: 100 mg Triamcinolone Acetonide (Kenalog 0.1% Crm) 0 gm TOP BID [facility] Last Admin: 04/08/18 12:21 Dose: 1 applic Discontinued Medications Cephalexin (Keflex) 500 mg PO QID [facility] Diphenhydramine HCl (Benadryl) 50 mg IVPUSH Q6H PRN PRN Reason: Itching Last Admin: 04/05/18 16:59 Dose: 50 mg Doxepin HCl (Sinequan) 25 mg PO ONETIME ONE Stop: 04/05/18 16:49 Last Admin: 04/05/18 17:03 Dose: 25 mg Doxepin HCl (Sinequan) 25 mg PO ONETIME ONE Stop: 04/06/18 19:51 Last Admin: 04/06/18 21:28 Dose: 25 mg Doxepin HCl (Sinequan) 25 mg PO ONETIME ONE Stop: 04/07/18 14:50 Last Admin: 04/07/18 15:07 Dose: 25 mg Multivitamins/Minerals 10 ml/Thiamine HCl 100 mg/ Folic Acid 1 mg/ Sodium Chloride 1,011.2 mls @ 250 drops/min IV ONETIME ONE Stop: 04/04/18 21:46 Last Admin: 04/04/18 22:00 Dose: 250 drops/min Vancomycin HCl 1 gm/ Sodium (Chloride) 250 mls @ 166.667 mls/hr IV Q12H [facility] Last Admin: 04/07/18 11:24 Dose: 166.667 mls/hr Ampicillin Sodium/Sulbactam (Sodium 3 gm/ Sodium Chloride) 100 mls @ 200 mls/ hr IV Q6H [facility] Last Admin: 04/06/18 05:44 Dose: 200 mls/hr Ampicillin Sodium/Sulbactam (Sodium 3 gm/ Sodium Chloride) 100 mls @ 200 mls/ hr IV Q6H [facility] Last Admin: 04/07/18 17:33 Dose: 200 mls/hr Lidocaine/Epinephrine (Xylocaine 1% With Epinephrine 1:100,000) 20 ml INJECT ONETIME ONE Stop: 04/06/18 11:01 Last Admin: 04/06/18 13:08 Dose: 20 ml Lisinopril (Prinivil) 40 mg PO DAILY [facility] Lorazepam (Ativan) 1 mg IVPUSH ONETIME ONE Stop: 04/04/18 20:42 Last Admin: 04/04/18 21:01 Dose: 1 mg Methylprednisolone Sodium Succinate (Solu-Medrol) 40 mg IVPUSH Q6H [facility] Last Admin: 04/05/18 15:23 Dose: 40 mg Methylprednisolone Sodium Succinate (Solu-Medrol) 60 mg IVPUSH Q6H [facility] Last Admin: 04/07/18 17:33 Dose: 60 mg Ondansetron HCl (Zofran) 8 mg IVPUSH ONETIME ONE Stop: 04/04/18 20:47 Last Admin: 04/04/18 20:59 Dose: 8 mg Ondansetron HCl (Zofran) 8 mg IVPUSH ONETIME ONE Stop: 04/04/18 22:48 Last Admin: 04/04/18 22:52 Dose: 8 mg Ondansetron HCl (Zofran) Confirm Administered Dose 8 mg .ROUTE .STK-MED ONE Stop: 04/04/18 22:49 Last Admin: 04/04/18 23:06 Dose: Not Given Calcipotriene [ (Calcitrene] 1 Gm) 1 each PO BID [facility] Last Admin: 04/07/18 09:31 Dose: Not Given Polyethylene Glycol (Miralax) 17 gm PO ONETIME ONE Stop: 04/07/18 18:58 Last Admin: 04/07/18 19:51 Dose: 17 gm Triamcinolone Acetonide (Triamcinolone Acetonide 0.1% Crm) 15 gm TOP DAILY [facility] Triamcinolone Acetonide (Triamcinolone Acetonide 0.1% Crm) 15 gm TOP DAILY [facility] Last Admin: 04/05/18 11:59 Dose: 1 applic Triamcinolone Acetonide (Triamcinolone Acetonide 0.1% Crm) 15 gm TOP BID [facility] Last Admin: 04/07/18 21:06 Dose: 1 applic Vancomycin HCl (Pharmacy To Dose - Vancomycin) 1 dose .XX ASDIRECTED [facility] - Exam Wound/Incisions: Healing Well (dry, clean, intact), Dressing Dry and Intact - Problem List Review Problem List Initiated/Reviewed/Updated: Yes - My Orders Last 24 Hours: Active Orders 24 hr Category Date Time Status OT Evaluation and Treatment [CONS] Routine Cons 04/07/18 12:56 Active PT Evaluation and Treatment [CONS] Routine Cons 04/07/18 12:56 Active BMP [BASIC METABOLIC PANEL,BMP] [CHEM] DAILY Lab 04/09/18 05:00 Ordered VITAMIN D 25-HYROXY (D2, D3) [REF] Urgent Lab 04/07/18 19:10 Received Amoxicillin/Clavulanate K [Augmentin 875 MG/125 MG] Med 04/07/18 21:00 Active 1 tab PO Q12HR Cholecalciferol (Vitamin D3) [Vitamin D3] Med 04/08/18 09:00 Active 2,000 units PO DAILY Triamcinolone Acetonide [Kenalog 0.1% Crm] Med 04/08/18 21:00 Active 0 gm TOP BID methylPREDNISolone Sod Succ [Solu-MEDROL] Med 04/08/18 02:00 Active 40 mg IVPUSH Q8H Medication Orders Acetaminophen (Tylenol) 650 mg PO Q6H PRN PRN Reason: Pain Albuterol/Ipratropium (Duoneb 3.0-0.5 Mg/3 Ml) 3 ml NEB Q4HRRT PRN PRN Reason: SOB/wheezing Last Admin: 04/05/18 11:47 Dose: 3 ml Amoxicillin/Clavulanate Potassium (Augmentin 875 Mg/125 Mg) 1 tab PO Q12HR [facility] Last Admin: 04/08/18 08:06 Dose: 1 tab Admin: 04/07/18 21:05 Dose: 1 tab Atorvastatin Calcium (Lipitor) 40 mg PO BEDTIME [facility] Last Admin: 04/07/18 21:05 Dose: 40 mg Admin: 04/06/18 21:28 Dose: 40 mg Admin: 04/05/18 20:25 Dose: 40 mg Calamine/Phenol (Gold Sultana Medicated Body Pwd) 1 gm TOP BID PRN PRN Reason: pruritus Cholecalciferol (Vitamin D3) 2,000 units PO DAILY [facility] Last Admin: 04/08/18 08:04 Dose: 2,000 units Diphenhydramine HCl (Benadryl) 50 mg IVPUSH Q6H [facility] Last Admin: 04/08/18 12:29 Dose: 50 mg Admin: 04/08/18 06:42 Dose: 50 mg Admin: 04/07/18 23:30 Dose: 50 mg Admin: 04/07/18 17:37 Dose: 50 mg Admin: 04/07/18 13:08 Dose: 50 mg Admin: 04/07/18 05:44 Dose: 50 mg Admin: 04/07/18 00:51 Dose: 50 mg Admin: 04/06/18 17:59 Dose: 50 mg Admin: 04/06/18 13:10 Dose: 50 mg Admin: 04/06/18 05:44 Dose: 50 mg Admin: 04/06/18 00:57 Dose: 50 mg Lactated Ringer's (Ringers, Lactated) 1,000 mls @ 100 mls/hr IV ASDIRECTED [facility] Last Admin: 04/08/18 06:46 Dose: 100 mls/hr Infusion: 04/08/18 06:46 Dose: 100 mls/hr Admin: 04/07/18 21:20 Dose: 100 mls/hr Infusion: 04/07/18 16:43 Dose: 100 mls/hr Admin: 04/07/18 06:43 Dose: 100 mls/hr Infusion: 04/07/18 04:08 Dose: 100 mls/hr Admin: 04/06/18 18:08 Dose: 100 mls/hr Infusion: 04/05/18 21:21 Dose: 100 mls/hr Admin: 04/05/18 11:21 Dose: 100 mls/hr Infusion: 04/05/18 11:21 Dose: 100 mls/hr Admin: 04/05/18 02:17 Dose: 100 mls/hr Insulin Aspart (Novolog) 0 unit SUBCUT TIDAC [facility]; Protocol Last Admin: 04/08/18 11:30 Dose: Admin: 04/08/18 06:34 Dose: Not Given Admin: 04/07/18 17:01 Dose: Not Given Admin: 04/07/18 12:04 Dose: Not Given Admin: 04/07/18 06:59 Dose: Not Given Admin: 04/06/18 16:49 Dose: Not Given Admin: 04/06/18 11:16 Dose: Levothyroxine Sodium (Levothyroxine) 112 mcg PO ACBREAKFAST [facility] Last Admin: 04/08/18 06:41 Dose: 112 mcg Admin: 04/07/18 06:40 Dose: 112 mcg Admin: 04/06/18 06:31 Dose: 112 mcg Lisinopril (Prinivil) 40 mg PO DAILY [facility] Last Admin: 04/08/18 08:05 Dose: 40 mg Admin: 04/07/18 09:20 Dose: 40 mg Admin: 04/06/18 09:04 Dose: 40 mg Admin: 04/05/18 11:18 Dose: 40 mg Lorazepam (Ativan) 0 mg IVPUSH Q4H PRN; Protocol PRN Reason: Withdrawal Symptoms Last Admin: 04/06/18 00:57 Dose: 1 mg Admin: 04/05/18 16:58 Dose: 2 mg Admin: 04/05/18 12:38 Dose: 1 mg Admin: 04/05/18 09:28 Dose: 2 mg Admin: 04/05/18 07:46 Dose: 2 mg Admin: 04/05/18 02:29 Dose: 2 mg Admin: 04/04/18 23:40 Dose: 2 mg Methylprednisolone Sodium Succinate (Solu-Medrol) 40 mg IVPUSH Q8H [facility] Last Admin: 04/08/18 11:26 Dose: 40 mg Admin: 04/08/18 01:34 Dose: 40 mg Mineral Oil/White Petrolatum (Hydrocerin Crm) 0 gm TOP BID [facility] Last Admin: 04/07/18 21:43 Dose: Admin: 04/07/18 09:22 Dose: Not Given Admin: 04/06/18 23:57 Dose: Multivit/Ca Carb/B Cmplx/FA/Prenat (Renal Caps Softgel) 1 cap PO DAILY [facility] Last Admin: 04/08/18 08:04 Dose: 1 cap Admin: 04/07/18 09:21 Dose: 1 cap Admin: 04/06/18 10:09 Dose: 1 cap Multivitamins/Minerals/Vitamin C (Tab-A-Carol) 1 tab PO DAILY [facility] Last Admin: 04/08/18 08:04 Dose: 1 tab Admin: 04/07/18 09:21 Dose: 1 tab Admin: 04/06/18 23:09 Dose: 1 tab Ondansetron HCl (Zofran) 4 mg IVPUSH Q4H PRN PRN Reason: Nausea/Vomiting Last Admin: 04/05/18 09:54 Dose: 4 mg Admin: 04/05/18 04:20 Dose: 4 mg Oxycodone/Acetaminophen (Percocet 325-5 Mg) 1 tab PO Q4H PRN PRN Reason: Pain Last Admin: 04/08/18 12:29 Dose: 1 tab Admin: 04/08/18 08:23 Dose: 1 tab Admin: 04/07/18 21:47 Dose: 1 tab Admin: 04/07/18 15:10 Dose: 1 tab Admin: 04/07/18 08:01 Dose: 1 tab Admin: 04/06/18 17:07 Dose: 1 tab Admin: 04/06/18 06:09 Dose: 1 tab Pantoprazole Sodium (Protonix Iv) 40 mg IVPUSH DAILY [facility] Last Admin: 04/08/18 08:06 Dose: 40 mg Admin: 04/07/18 09:52 Dose: 40 mg Admin: 04/06/18 21:24 Dose: 40 mg Calcipotriene [ (Calcitrene] 1 Gm) 1 each TOP BID [facility] Last Admin: 04/07/18 20:53 Dose: 1 each Promethazine HCl (Phenergan) 12.5 mg IM Q4H PRN PRN Reason: Vomiting Last Admin: 04/05/18 12:51 Dose: 12.5 mg Sertraline HCl (Zoloft) 25 mg PO DAILY [facility] Last Admin: 04/08/18 08:03 Dose: 25 mg Admin: 04/07/18 09:23 Dose: 25 mg Admin: 04/06/18 09:05 Dose: 25 mg Sodium Chloride (Saline Flush) 10 ml FLUSH ASDIRECTED PRN PRN Reason: Keep Vein Open Sodium Chloride (Saline Flush) 2.5 ml FLUSH ASDIRECTED PRN PRN Reason: Keep Vein Open Thiamine HCl (Vitamin B-1) 100 mg PO BEDTIME [facility] Last Admin: 04/07/18 21:05 Dose: 100 mg Admin: 04/06/18 21:28 Dose: 100 mg Triamcinolone Acetonide (Kenalog 0.1% Crm) 0 gm TOP BID [facility] Last Admin: 04/08/18 12:21 Dose: 1 applic - Assessment Assessment (Free Text/Narrative):: doing well; will dc drsg to bandaid; fu 7 - 10 days to dc stitches; thanks for the consult and care of this [place] patient - Plan Plan (Free Text/Narrative):: doing well; will dc drsg to bandaid; fu 7 - 10 days to dc stitches; thanks for the consult and care of this [place] patient
[2018-04-08] MEDS: Mineral Oil/White Petrolatum Crm 113 GM Jar TOP SCH ×2 (14:09→21:58)
[2018-04-08] MEDS: CALCIPOTRIENE 1 GM TOP SCH ×2 (14:09→21:57)
[2018-04-08] MEDS: Triamcinolone Acetonide 0.1% Crm 15 GM Tube TOP SCH (14:20)
[2018-04-08] MEDS ORDERED: Doxepin 25 MG Cap PO ONE (14:58)
[2018-04-08] MEDS: LORazepam 1 MG Tab PO SCH ×2 (16:22→22:03)
--- NOTE | 2018-04-08 18:35 | PCM.PN ---
- General Info Date of Service: 04/08/18 Subjective Update: her blood work shows anemia of chronic disease. Patient is toribio. - Review of Systems General: Reports: No Symptoms HEENT: Reports: No Symptoms Pulmonary: Reports: No Symptoms Cardiovascular: Reports: No Symptoms Gastrointestinal: Reports: No Symptoms, Constipation Genitourinary: Reports: No Symptoms Musculoskeletal: Reports: No Symptoms Skin: Reports: No Symptoms Neurological: Reports: No Symptoms Psychiatric: Reports: No Symptoms - Patient Data Vitals - Most Recent: Last Vital Signs Temp 97.2 F 04/08/18 12:00 Pulse 50 L 04/08/18 12:00 Resp 16 04/08/18 12:00 BP 154/74 H 04/08/18 12:00 Pulse Ox 98 04/08/18 12:00 Weight - Most Recent: 121 lb 6.4 oz I&O - Last 24 Hours: Intake & Output 04/08/18 04/08/18 04/08/18 06:59 14:59 22:59 Intake Total 1713 Output Total 400 Balance 1313 Lab Results Last 24 Hours: Laboratory Results - last 24 hr 04/07/18 04/07/18 04/08/18 Range/Units 19:10 19:10 05:04 WBC 9.95 (4.0-11.0) K/uL RBC 2.46 L (4.30-5.90) M/uL Hgb 8.3 L (12.0-16.0) g/dL Hct 25.3 L (36.0-46.0) % MCV 102.8 H (80.0-98.0) fL MCH 33.7 H (27.0-32.0) pg MCHC 32.8 (31.0-37.0) g/dL RDW Std Deviation 50.8 (28.0-62.0) fl RDW Coeff of Amrik 13 (11.0-15.0) % Plt Count 369 (150-400) K/uL MPV 9.90 (7.40-12.00) fL Neut % (Auto) 80.5 H (48.0-80.0) % Lymph % (Auto) 13.6 L (16.0-40.0) % [place] % (Auto) 5.8 (0.0-15.0) % Eos % (Auto) 0.0 (0.0-7.0) % Baso % (Auto) 0.1 (0.0-1.5) % Neut # (Auto) 8.0 H (1.4-5.7) K/uL Lymph # (Auto) 1.4 (0.6-2.4) K/uL [place] # (Auto) 0.6 (0.0-0.8) K/uL Eos # (Auto) 0.0 (0.0-0.7) K/uL Baso # (Auto) 0.0 (0.0-0.1) K/uL Nucleated RBC % 0.0 /100WBC Nucleated RBCs # 0 K/uL Sodium (136-145) mmol/L Potassium (3.5-5.1) mmol/L Chloride (98-107) mmol/L Carbon Dioxide (21.0-32.0) mmol/L BUN (7.0-18.0) mg/dL Creatinine (0.6-1.0) mg/dL Est Cr Clr Drug Dosing mL/min Estimated GFR (MDRD) ml/min Glucose (74-106) mg/dL POC Glucose (60-110) mg/dL Calcium (8.5-10.1) mg/dL Iron 88 (50-175) ug/dL TIBC 223 L (250-450) ug/dL % Saturation 39.46 (20-55) % Ferritin 362 H (8-252) ng/mL Folate 37.40 (8.60-58.90) ng/mL Vancomycin Trough (5.0-10.0) ug/mL 04/08/18 04/08/18 04/08/18 Range/Units 05:04 06:13 10:00 WBC (4.0-11.0) K/uL RBC (4.30-5.90) M/uL Hgb (12.0-16.0) g/dL Hct (36.0-46.0) % MCV (80.0-98.0) fL MCH (27.0-32.0) pg MCHC (31.0-37.0) g/dL RDW Std Deviation (28.0-62.0) fl RDW Coeff of Amrik (11.0-15.0) % Plt Count (150-400) K/uL MPV (7.40-12.00) fL Neut % (Auto) (48.0-80.0) % Lymph % (Auto) (16.0-40.0) % [place] % (Auto) (0.0-15.0) % Eos % (Auto) (0.0-7.0) % Baso % (Auto) (0.0-1.5) % Neut # (Auto) (1.4-5.7) K/uL Lymph # (Auto) (0.6-2.4) K/uL [place] # (Auto) (0.0-0.8) K/uL Eos # (Auto) (0.0-0.7) K/uL Baso # (Auto) (0.0-0.1) K/uL Nucleated RBC % /100WBC Nucleated RBCs # K/uL Sodium 138 (136-145) mmol/L Potassium 3.9 (3.5-5.1) mmol/L Chloride 106 (98-107) mmol/L Carbon Dioxide 26.2 (21.0-32.0) mmol/L BUN 28 H (7.0-18.0) mg/dL Creatinine 0.9 (0.6-1.0) mg/dL Est Cr Clr Drug Dosing 58.51 mL/min Estimated GFR (MDRD) > 60.0 ml/min Glucose 129 H (74-106) mg/dL POC Glucose 133 H (60-110) mg/dL Calcium 8.8 (8.5-10.1) mg/dL Iron (50-175) ug/dL TIBC (250-450) ug/dL % Saturation (20-55) % Ferritin (8-252) ng/mL Folate (8.60-58.90) ng/mL Vancomycin Trough 13.7 H (5.0-10.0) ug/mL 04/08/18 04/08/18 Range/Units 11:44 15:52 WBC (4.0-11.0) K/uL RBC (4.30-5.90) M/uL Hgb (12.0-16.0) g/dL Hct (36.0-46.0) % MCV (80.0-98.0) fL MCH (27.0-32.0) pg MCHC (31.0-37.0) g/dL RDW Std Deviation (28.0-62.0) fl RDW Coeff of Amrik (11.0-15.0) % Plt Count (150-400) K/uL MPV (7.40-12.00) fL Neut % (Auto) (48.0-80.0) % Lymph % (Auto) (16.0-40.0) % [place] % (Auto) (0.0-15.0) % Eos % (Auto) (0.0-7.0) % Baso % (Auto) (0.0-1.5) % Neut # (Auto) (1.4-5.7) K/uL Lymph # (Auto) (0.6-2.4) K/uL [place] # (Auto) (0.0-0.8) K/uL Eos # (Auto) (0.0-0.7) K/uL Baso # (Auto) (0.0-0.1) K/uL Nucleated RBC % /100WBC Nucleated RBCs # K/uL Sodium (136-145) mmol/L Potassium (3.5-5.1) mmol/L Chloride (98-107) mmol/L Carbon Dioxide (21.0-32.0) mmol/L BUN (7.0-18.0) mg/dL Creatinine (0.6-1.0) mg/dL Est Cr Clr Drug Dosing mL/min Estimated GFR (MDRD) ml/min Glucose (74-106) mg/dL POC Glucose 101 168 H (60-110) mg/dL Calcium (8.5-10.1) mg/dL Iron (50-175) ug/dL TIBC (250-450) ug/dL % Saturation (20-55) % Ferritin (8-252) ng/mL Folate (8.60-58.90) ng/mL Vancomycin Trough (5.0-10.0) ug/mL Med Orders - Current: Current Medications Acetaminophen (Tylenol) 650 mg PO Q6H PRN PRN Reason: Pain Albuterol/Ipratropium (Duoneb 3.0-0.5 Mg/3 Ml) 3 ml NEB Q4HRRT PRN PRN Reason: SOB/wheezing Last Admin: 04/05/18 11:47 Dose: 3 ml Amoxicillin/Clavulanate Potassium (Augmentin 875 Mg/125 Mg) 1 tab PO Q12HR [facility] Last Admin: 04/08/18 08:06 Dose: 1 tab Atorvastatin Calcium (Lipitor) 40 mg PO BEDTIME [facility] Last Admin: 04/07/18 21:05 Dose: 40 mg Calamine/Phenol (Gold Sultana Medicated Body Pwd) 1 gm TOP BID PRN PRN Reason: pruritus Cholecalciferol (Vitamin D3) 2,000 units PO DAILY [facility] Last Admin: 04/08/18 08:04 Dose: 2,000 units Diphenhydramine HCl (Benadryl) 50 mg IVPUSH Q6H [facility] Last Admin: 04/08/18 12:29 Dose: 50 mg Lactated Ringer's (Ringers, Lactated) 1,000 mls @ 100 mls/hr IV ASDIRECTED [facility] Last Admin: 04/08/18 16:27 Dose: 100 mls/hr Insulin Aspart (Novolog) 0 unit SUBCUT TIDAC [facility]; Protocol Last Admin: 04/08/18 11:30 Dose: Not Given Levothyroxine Sodium (Levothyroxine) 112 mcg PO ACBREAKFAST [facility] Last Admin: 04/08/18 06:41 Dose: 112 mcg Lisinopril (Prinivil) 40 mg PO DAILY [facility] Last Admin: 04/08/18 08:05 Dose: 40 mg Lorazepam (Ativan) 0 mg IVPUSH Q4H PRN; Protocol PRN Reason: Withdrawal Symptoms Last Admin: 04/06/18 00:57 Dose: 1 mg Lorazepam (Ativan) 1 mg PO BID [facility] Last Admin: 04/08/18 16:22 Dose: 1 mg Methylprednisolone Sodium Succinate (Solu-Medrol) 40 mg IVPUSH Q6H [facility] Last Admin: 04/08/18 16:22 Dose: 40 mg Mineral Oil/White Petrolatum (Hydrocerin Crm) 0 gm TOP BID [facility] Last Admin: 04/08/18 14:09 Dose: Not Given Multivit/Ca Carb/B Cmplx/FA/Prenat (Renal Caps Softgel) 1 cap PO DAILY [facility] Last Admin: 04/08/18 08:04 Dose: 1 cap Multivitamins/Minerals/Vitamin C (Tab-A-Carol) 1 tab PO DAILY [facility] Last Admin: 04/08/18 08:04 Dose: 1 tab Ondansetron HCl (Zofran) 4 mg IVPUSH Q4H PRN PRN Reason: Nausea/Vomiting Last Admin: 04/05/18 09:54 Dose: 4 mg Oxycodone/Acetaminophen (Percocet 325-5 Mg) 1 tab PO Q4H PRN PRN Reason: Pain Last Admin: 04/08/18 12:29 Dose: 1 tab Pantoprazole Sodium (Protonix Iv) 40 mg IVPUSH DAILY [facility] Last Admin: 04/08/18 08:06 Dose: 40 mg Calcipotriene [ (Calcitrene] 1 Gm) 1 each TOP BID [facility] Last Admin: 04/08/18 14:09 Dose: Not Given Promethazine HCl (Phenergan) 12.5 mg IM Q4H PRN PRN Reason: Vomiting Last Admin: 04/05/18 12:51 Dose: 12.5 mg Quetiapine Fumarate (Seroquel) 25 mg PO BEDTIME [facility] Sertraline HCl (Zoloft) 25 mg PO DAILY [facility] Last Admin: 04/08/18 08:03 Dose: 25 mg Sodium Chloride (Saline Flush) 10 ml FLUSH ASDIRECTED PRN PRN Reason: Keep Vein Open Sodium Chloride (Saline Flush) 2.5 ml FLUSH ASDIRECTED PRN PRN Reason: Keep Vein Open Thiamine HCl (Vitamin B-1) 100 mg PO BEDTIME [facility] Last Admin: 04/07/18 21:05 Dose: 100 mg Triamcinolone Acetonide (Kenalog 0.1% Crm) 0 gm TOP BID [facility] Last Admin: 04/08/18 12:21 Dose: 1 applic Discontinued Medications Cephalexin (Keflex) 500 mg PO QID [facility] Diphenhydramine HCl (Benadryl) 50 mg IVPUSH Q6H PRN PRN Reason: Itching Last Admin: 04/05/18 16:59 Dose: 50 mg Doxepin HCl (Sinequan) 25 mg PO ONETIME ONE Stop: 04/05/18 16:49 Last Admin: 04/05/18 17:03 Dose: 25 mg Doxepin HCl (Sinequan) 25 mg PO ONETIME ONE Stop: 04/06/18 19:51 Last Admin: 04/06/18 21:28 Dose: 25 mg Doxepin HCl (Sinequan) 25 mg PO ONETIME ONE Stop: 04/07/18 14:50 Last Admin: 04/07/18 15:07 Dose: 25 mg Doxepin HCl (Sinequan) 25 mg PO ONETIME ONE Stop: 04/08/18 14:59 Last Admin: 04/08/18 16:22 Dose: 25 mg Multivitamins/Minerals 10 ml/Thiamine HCl 100 mg/ Folic Acid 1 mg/ Sodium Chloride 1,011.2 mls @ 250 drops/min IV ONETIME ONE Stop: 04/04/18 21:46 Last Admin: 04/04/18 22:00 Dose: 250 drops/min Vancomycin HCl 1 gm/ Sodium (Chloride) 250 mls @ 166.667 mls/hr IV Q12H [facility] Last Admin: 04/07/18 11:24 Dose: 166.667 mls/hr Ampicillin Sodium/Sulbactam (Sodium 3 gm/ Sodium Chloride) 100 mls @ 200 mls/ hr IV Q6H [facility] Last Admin: 04/06/18 05:44 Dose: 200 mls/hr Ampicillin Sodium/Sulbactam (Sodium 3 gm/ Sodium Chloride) 100 mls @ 200 mls/ hr IV Q6H [facility] Last Admin: 04/07/18 17:33 Dose: 200 mls/hr Lidocaine/Epinephrine (Xylocaine 1% With Epinephrine 1:100,000) 20 ml INJECT ONETIME ONE Stop: 04/06/18 11:01 Last Admin: 04/06/18 13:08 Dose: 20 ml Lisinopril (Prinivil) 40 mg PO DAILY [facility] Lorazepam (Ativan) 1 mg IVPUSH ONETIME ONE Stop: 04/04/18 20:42 Last Admin: 04/04/18 21:01 Dose: 1 mg Methylprednisolone Sodium Succinate (Solu-Medrol) 40 mg IVPUSH Q6H [facility] Last Admin: 04/05/18 15:23 Dose: 40 mg Methylprednisolone Sodium Succinate (Solu-Medrol) 60 mg IVPUSH Q6H [facility] Last Admin: 04/07/18 17:33 Dose: 60 mg Methylprednisolone Sodium Succinate (Solu-Medrol) 40 mg IVPUSH Q8H [facility] Last Admin: 04/08/18 11:26 Dose: 40 mg Ondansetron HCl (Zofran) 8 mg IVPUSH ONETIME ONE Stop: 04/04/18 20:47 Last Admin: 04/04/18 20:59 Dose: 8 mg Ondansetron HCl (Zofran) 8 mg IVPUSH ONETIME ONE Stop: 04/04/18 22:48 Last Admin: 04/04/18 22:52 Dose: 8 mg Ondansetron HCl (Zofran) Confirm Administered Dose 8 mg .ROUTE .STK-MED ONE Stop: 04/04/18 22:49 Last Admin: 04/04/18 23:06 Dose: Not Given Calcipotriene [ (Calcitrene] 1 Gm) 1 each PO BID [facility] Last Admin: 04/07/18 09:31 Dose: Not Given Polyethylene Glycol (Miralax) 17 gm PO ONETIME ONE Stop: 04/07/18 18:58 Last Admin: 04/07/18 19:51 Dose: 17 gm Triamcinolone Acetonide (Triamcinolone Acetonide 0.1% Crm) 15 gm TOP DAILY [facility] Triamcinolone Acetonide (Triamcinolone Acetonide 0.1% Crm) 15 gm TOP DAILY [facility] Last Admin: 04/05/18 11:59 Dose: 1 applic Triamcinolone Acetonide (Triamcinolone Acetonide 0.1% Crm) 15 gm TOP BID [facility] Last Admin: 04/08/18 14:20 Dose: Not Given Vancomycin HCl (Pharmacy To Dose - Vancomycin) 1 dose .XX ASDIRECTED [facility] - Exam General: Alert, Oriented HEENT: Pupils Equal, Pupils Reactive Neck: Supple, Trachea Midline, No JVD Lungs: Clear to Auscultation, Normal Respiratory Effort Cardiovascular: Regular Rate, Regular Rhythm GI/Abdominal Exam: Normal Bowel Sounds, Soft, Non-Tender, No Organomegaly (Female) Exam: Normal External Exam Back Exam: Normal Inspection, Full Range of Motion Extremities: Normal Inspection Skin: Rash Neurological: No New Focal Deficit Psy/Mental Status: Alert, Normal Affect - Problem List & Annotations (1) Unintentional weight loss SNOMED Code(s): 476407765 Code(s): R63.4 - ABNORMAL WEIGHT LOSS Status: Acute Current Visit: Yes (2) Alcohol withdrawal SNOMED Code(s): 348879669 Code(s): F10.239 - ALCOHOL DEPENDENCE WITH WITHDRAWAL, UNSPECIFIED Status: Acute Current Visit: Yes Qualifiers: Complication of substance-induced condition: uncomplicated Qualified Code(s ): F10.230 - Alcohol dependence with withdrawal, uncomplicated (3) Alcohol abuse SNOMED Code(s): 20590048 Code(s): F10.10 - ALCOHOL ABUSE, UNCOMPLICATED Status: Acute Current Visit: Yes (4) Dementia SNOMED Code(s): 93383660 Code(s): F03.90 - UNSPECIFIED DEMENTIA WITHOUT BEHAVIORAL DISTURBANCE Status: Acute Current Visit: Yes (5) Ventral hernia SNOMED Code(s): 715824678 Code(s): K43.9 - VENTRAL HERNIA WITHOUT OBSTRUCTION OR GANGRENE Status: Acute Current Visit: Yes (6) Skin rash SNOMED Code(s): 038783512 Code(s): R21 - RASH AND OTHER NONSPECIFIC SKIN ERUPTION Status: Acute Current Visit: Yes (7) Anemia SNOMED Code(s): 565154233 Code(s): D64.9 - ANEMIA, UNSPECIFIED Status: Acute Current Visit: Yes - Problem List Review Problem List Initiated/Reviewed/Updated: Yes - My Orders Last 24 Hours: My Active Orders 04/07/18 19:10 VITAMIN D 25-HYROXY (D2, D3) [REF] Urgent 04/07/18 21:00 Amoxicillin/Clavulanate K [Augmentin 875 MG/125 MG] 1 tab PO Q12HR 04/08/18 09:00 Cholecalciferol (Vitamin D3) [Vitamin D3] 2,000 units PO DAILY 04/08/18 15:00 LORazepam [Ativan] 1 mg PO BID 04/08/18 15:15 methylPREDNISolone Sod Succ [Solu-MEDROL] 40 mg IVPUSH Q6H 04/08/18 21:00 QUEtiapine [SEROquel] 25 mg PO BEDTIME Triamcinolone Acetonide [Kenalog 0.1% Crm] 0 gm TOP BID 04/09/18 05:00 BMP [BASIC METABOLIC PANEL,BMP] [CHEM] DAILY - Assessment Assessment:: ativan 1 mg po bid , seroquel 25 mg po at bedtime IV fluids for dementia - will give patient thiamine 100 mg po daily , multivitamins , RPR nl, TSH mild elevated , B12 level, Ft4 - normal. Her cognitive function is better today For anxiety - increase sertraline to 50 mg po daily add ativan 1 mg po BID , sertraline 25 mg po q hs. Patient can not be discharge home with ativan due to her historyof chronic alcohol use For skin rash _prednisone changed to 40 mg iv q 6 h , she was not started on Po prednisone due to concerns her rash might not resolve yet triamcinolone 0.1 % bid topical, moisturizer cream On augmentine 1 tab po BID menthol paste topical Gi prof: PPI anemia- of chronic disease- monitor hb , treat the rash Constipation: d/c benadryl , miralax 30 cc po daily , bisacodil sup
[2018-04-08] MEDS: Thiamine 100 MG Tab PO SCH (22:02)
[2018-04-08] MEDS: atorvaSTATin 40 MG Tab PO SCH (22:03)
[2018-04-08] MEDS: QUEtiapine 25 MG Tab PO SCH (22:05)
[2018-04-09] MEDS: Lactated Ringers 1,000 ML IV SCH (02:04)
[2018-04-09] MEDS: methylPREDNISolone Sodium Succinate 40 MG/1 ML SDV IVPUSH SCH ×2 (02:54→09:00)
[2018-04-09] MEDS: Acetaminophen/oxyCODONE 325-5 MG Tab PO PRN ×3 (03:00→20:30)
[2018-04-09] MEDS: Levothyroxine 112 MCG Tab PO SCH (06:32)
[2018-04-09] MEDS: Insulin Aspart 100 Units/ML 3 ML Pen SUBCUT SCH ×3 (06:48→18:05)
[2018-04-09 06:53] LABS: CHLORIDE,CL 104 mmol/L (98-107); SODIUM,NA 138 mmol/L (136-145)
[2018-04-09] MEDS: Amoxicillin/Clavulanate K 875-125 MG Tab PO SCH ×2 (08:01→20:27)
[2018-04-09] MEDS: Lisinopril 10 MG Tab PO SCH (08:01)
[2018-04-09] MEDS: LORazepam 1 MG Tab PO SCH (08:01)
[2018-04-09] MEDS: Cholecalciferol (Vitamin D3) 1,000 Unit Tab PO SCH (08:01)
[2018-04-09] MEDS: Multivitamin Tab PO SCH (08:02)
[2018-04-09] MEDS: Folic Acid/Vitamin B Complex With C Cap PO SCH (08:03)
[2018-04-09] MEDS: Sertraline 50 MG Tab PO SCH (08:05)
[2018-04-09] MEDS: Triamcinolone Acetonide 0.1% Crm 80 GM Tube TOP SCH ×2 (08:06→20:34)
[2018-04-09] MEDS: Petrolatum,White Ointment 50 GM Tube TOP SCH ×2 (09:00→20:34)
[2018-04-09] MEDS: Pantoprazole 40 MG Vial IVPUSH SCH (09:00)
[2018-04-09] MEDS: CALCIPOTRIENE 1 GM TOP SCH ×2 (11:00→20:35)
--- NOTE | 2018-04-09 14:39 | PCM.PN ---
- General Info Date of Service: 04/09/18 - Review of Systems Systems Review Comment:: reports rash has improved, has not had a bowel movement in four days - Patient Data Vitals - Most Recent: Last Vital Signs Temp 36.2 C 04/09/18 08:00 Pulse 67 04/09/18 03:36 Resp 18 04/09/18 03:36 BP 151/93 H 04/09/18 03:36 Pulse Ox 93 L 04/09/18 03:36 Weight - Most Recent: 55.066 kg I&O - Last 24 Hours: Intake & Output 04/08/18 04/09/18 04/09/18 22:59 06:59 14:59 Intake Total 1400 Output Total 500 Balance 900 Lab Results Last 24 Hours: Laboratory Results - last 24 hr 04/07/18 04/08/18 04/09/18 Range/Units 19:10 15:52 05:47 WBC (4.0-11.0) K/uL RBC (4.30-5.90) M/uL Hgb (12.0-16.0) g/dL Hct (36.0-46.0) % MCV (80.0-98.0) fL MCH (27.0-32.0) pg MCHC (31.0-37.0) g/dL RDW Std Deviation (28.0-62.0) fl RDW Coeff of Amrik (11.0-15.0) % Plt Count (150-400) K/uL MPV (7.40-12.00) fL Neut % (Auto) (48.0-80.0) % Lymph % (Auto) (16.0-40.0) % [place] % (Auto) (0.0-15.0) % Eos % (Auto) (0.0-7.0) % Baso % (Auto) (0.0-1.5) % Neut # (Auto) (1.4-5.7) K/uL Lymph # (Auto) (0.6-2.4) K/uL [place] # (Auto) (0.0-0.8) K/uL Eos # (Auto) (0.0-0.7) K/uL Baso # (Auto) (0.0-0.1) K/uL Nucleated RBC % /100WBC Nucleated RBCs # K/uL Sodium 138 (136-145) mmol/L Potassium 4.2 (3.5-5.1) mmol/L Chloride 104 (98-107) mmol/L Carbon Dioxide 26.2 (21.0-32.0) mmol/L BUN 26 H (7.0-18.0) mg/dL Creatinine 0.9 (0.6-1.0) mg/dL Est Cr Clr Drug Dosing 58.51 mL/min Estimated GFR (MDRD) > 60.0 ml/min Glucose 126 H (74-106) mg/dL POC Glucose 168 H (60-110) mg/dL Calcium 8.8 (8.5-10.1) mg/dL Vitamin D 25-Hydroxy 17 L (30-100) ng/mL 04/09/18 04/09/18 04/09/18 Range/Units 05:47 06:44 11:07 WBC 8.07 (4.0-11.0) K/uL RBC 2.51 L (4.30-5.90) M/uL Hgb 8.3 L (12.0-16.0) g/dL Hct 25.9 L (36.0-46.0) % MCV 103.2 H (80.0-98.0) fL MCH 33.1 H (27.0-32.0) pg MCHC 32.0 (31.0-37.0) g/dL RDW Std Deviation 49.7 (28.0-62.0) fl RDW Coeff of Amrik 13 (11.0-15.0) % Plt Count 388 (150-400) K/uL MPV 10.80 (7.40-12.00) fL Neut % (Auto) 76.2 (48.0-80.0) % Lymph % (Auto) 18.6 (16.0-40.0) % [place] % (Auto) 5.0 (0.0-15.0) % Eos % (Auto) 0.1 (0.0-7.0) % Baso % (Auto) 0.1 (0.0-1.5) % Neut # (Auto) 6.2 H (1.4-5.7) K/uL Lymph # (Auto) 1.5 (0.6-2.4) K/uL [place] # (Auto) 0.4 (0.0-0.8) K/uL Eos # (Auto) 0.0 (0.0-0.7) K/uL Baso # (Auto) 0.0 (0.0-0.1) K/uL Nucleated RBC % 0.0 /100WBC Nucleated RBCs # 0 K/uL Sodium (136-145) mmol/L Potassium (3.5-5.1) mmol/L Chloride (98-107) mmol/L Carbon Dioxide (21.0-32.0) mmol/L BUN (7.0-18.0) mg/dL Creatinine (0.6-1.0) mg/dL Est Cr Clr Drug Dosing mL/min Estimated GFR (MDRD) ml/min Glucose (74-106) mg/dL POC Glucose 125 H 173 H (60-110) mg/dL Calcium (8.5-10.1) mg/dL Vitamin D 25-Hydroxy (30-100) ng/mL Med Orders - Current: Current Medications Acetaminophen (Tylenol) 650 mg PO Q6H PRN PRN Reason: Pain Albuterol/Ipratropium (Duoneb 3.0-0.5 Mg/3 Ml) 3 ml NEB Q4HRRT PRN PRN Reason: SOB/wheezing Last Admin: 04/05/18 11:47 Dose: 3 ml Amoxicillin/Clavulanate Potassium (Augmentin 875 Mg/125 Mg) 1 tab PO Q12HR [facility] Last Admin: 04/09/18 08:01 Dose: 1 tab Atorvastatin Calcium (Lipitor) 40 mg PO BEDTIME [facility] Last Admin: 04/08/18 22:03 Dose: 40 mg Calamine/Phenol (Gold Sultana Medicated Body Pwd) 1 gm TOP BID PRN PRN Reason: pruritus Cholecalciferol (Vitamin D3) 2,000 units PO DAILY [facility] Last Admin: 04/09/18 08:01 Dose: 2,000 units Insulin Aspart (Novolog) 0 unit SUBCUT TIDAC [facility]; Protocol Last Admin: 04/09/18 11:48 Dose: 2 units Levothyroxine Sodium (Levothyroxine) 112 mcg PO ACBREAKFAST [facility] Last Admin: 04/09/18 06:32 Dose: 112 mcg Lisinopril (Prinivil) 40 mg PO DAILY [facility] Last Admin: 04/09/18 08:01 Dose: 40 mg Lorazepam (Ativan) 0 mg IVPUSH Q4H PRN; Protocol PRN Reason: Withdrawal Symptoms Last Admin: 04/06/18 00:57 Dose: 1 mg Multivit/Ca Carb/B Cmplx/FA/Prenat (Renal Caps Softgel) 1 cap PO DAILY [facility] Last Admin: 04/09/18 08:03 Dose: 1 cap Multivitamins/Minerals/Vitamin C (Tab-A-Carol) 1 tab PO DAILY [facility] Last Admin: 04/09/18 08:02 Dose: 1 tab Ondansetron HCl (Zofran) 4 mg IVPUSH Q4H PRN PRN Reason: Nausea/Vomiting Last Admin: 04/05/18 09:54 Dose: 4 mg Oxycodone/Acetaminophen (Percocet 325-5 Mg) 1 tab PO Q4H PRN PRN Reason: Pain Last Admin: 04/09/18 10:17 Dose: 1 tab Pantoprazole Sodium (Protonix Iv) 40 mg IVPUSH DAILY [facility] Last Admin: 04/09/18 09:00 Dose: 40 mg Calcipotriene [ (Calcitrene] 1 Gm) 1 each TOP BID [facility] Last Admin: 04/09/18 11:00 Dose: Not Given Petrolatum (Aquaphor With Natural Healing) 0 gm TOP BID [facility] Last Admin: 04/09/18 09:00 Dose: 1 applic Promethazine HCl (Phenergan) 12.5 mg IM Q4H PRN PRN Reason: Vomiting Last Admin: 04/05/18 12:51 Dose: 12.5 mg Quetiapine Fumarate (Seroquel) 25 mg PO BEDTIME [facility] Last Admin: 04/08/18 22:05 Dose: 25 mg Sertraline HCl (Zoloft) 25 mg PO DAILY [facility] Last Admin: 04/09/18 08:05 Dose: 25 mg Sodium Chloride (Saline Flush) 10 ml FLUSH ASDIRECTED PRN PRN Reason: Keep Vein Open Sodium Chloride (Saline Flush) 2.5 ml FLUSH ASDIRECTED PRN PRN Reason: Keep Vein Open Thiamine HCl (Vitamin B-1) 100 mg PO BEDTIME [facility] Last Admin: 04/08/18 22:02 Dose: 100 mg Triamcinolone Acetonide (Kenalog 0.1% Crm) 0 gm TOP BID [facility] Last Admin: 04/09/18 08:06 Dose: 1 applic Discontinued Medications Cephalexin (Keflex) 500 mg PO QID [facility] Diphenhydramine HCl (Benadryl) 50 mg IVPUSH Q6H PRN PRN Reason: Itching Last Admin: 04/05/18 16:59 Dose: 50 mg Diphenhydramine HCl (Benadryl) 50 mg IVPUSH Q6H [facility] Last Admin: 04/08/18 19:07 Dose: 50 mg Doxepin HCl (Sinequan) 25 mg PO ONETIME ONE Stop: 04/05/18 16:49 Last Admin: 04/05/18 17:03 Dose: 25 mg Doxepin HCl (Sinequan) 25 mg PO ONETIME ONE Stop: 04/06/18 19:51 Last Admin: 04/06/18 21:28 Dose: 25 mg Doxepin HCl (Sinequan) 25 mg PO ONETIME ONE Stop: 04/07/18 14:50 Last Admin: 04/07/18 15:07 Dose: 25 mg Doxepin HCl (Sinequan) 25 mg PO ONETIME ONE Stop: 04/08/18 14:59 Last Admin: 04/08/18 16:22 Dose: 25 mg Multivitamins/Minerals 10 ml/Thiamine HCl 100 mg/ Folic Acid 1 mg/ Sodium Chloride 1,011.2 mls @ 250 drops/min IV ONETIME ONE Stop: 04/04/18 21:46 Last Admin: 04/04/18 22:00 Dose: 250 drops/min Lactated Ringer's (Ringers, Lactated) 1,000 mls @ 100 mls/hr IV ASDIRECTED [facility] Last Admin: 04/09/18 02:04 Dose: 100 mls/hr Vancomycin HCl 1 gm/ Sodium (Chloride) 250 mls @ 166.667 mls/hr IV Q12H [facility] Last Admin: 04/07/18 11:24 Dose: 166.667 mls/hr Ampicillin Sodium/Sulbactam (Sodium 3 gm/ Sodium Chloride) 100 mls @ 200 mls/ hr IV Q6H [facility] Last Admin: 04/06/18 05:44 Dose: 200 mls/hr Ampicillin Sodium/Sulbactam (Sodium 3 gm/ Sodium Chloride) 100 mls @ 200 mls/ hr IV Q6H [facility] Last Admin: 04/07/18 17:33 Dose: 200 mls/hr Lidocaine/Epinephrine (Xylocaine 1% With Epinephrine 1:100,000) 20 ml INJECT ONETIME ONE Stop: 04/06/18 11:01 Last Admin: 04/06/18 13:08 Dose: 20 ml Lisinopril (Prinivil) 40 mg PO DAILY [facility] Lorazepam (Ativan) 1 mg IVPUSH ONETIME ONE Stop: 04/04/18 20:42 Last Admin: 04/04/18 21:01 Dose: 1 mg Lorazepam (Ativan) 1 mg PO BID [facility] Last Admin: 04/09/18 08:01 Dose: 1 mg Methylprednisolone Sodium Succinate (Solu-Medrol) 40 mg IVPUSH Q6H [facility] Last Admin: 04/05/18 15:23 Dose: 40 mg Methylprednisolone Sodium Succinate (Solu-Medrol) 60 mg IVPUSH Q6H [facility] Last Admin: 04/07/18 17:33 Dose: 60 mg Methylprednisolone Sodium Succinate (Solu-Medrol) 40 mg IVPUSH Q8H [facility] Last Admin: 04/08/18 11:26 Dose: 40 mg Methylprednisolone Sodium Succinate (Solu-Medrol) 40 mg IVPUSH Q6H [facility] Last Admin: 04/09/18 09:00 Dose: 40 mg Mineral Oil/White Petrolatum (Hydrocerin Crm) 0 gm TOP BID [facility] Last Admin: 04/08/18 21:58 Dose: Not Given Ondansetron HCl (Zofran) 8 mg IVPUSH ONETIME ONE Stop: 04/04/18 20:47 Last Admin: 04/04/18 20:59 Dose: 8 mg Ondansetron HCl (Zofran) 8 mg IVPUSH ONETIME ONE Stop: 04/04/18 22:48 Last Admin: 04/04/18 22:52 Dose: 8 mg Ondansetron HCl (Zofran) Confirm Administered Dose 8 mg .ROUTE .STK-MED ONE Stop: 04/04/18 22:49 Last Admin: 04/04/18 23:06 Dose: Not Given Calcipotriene [ (Calcitrene] 1 Gm) 1 each PO BID [facility] Last Admin: 04/07/18 09:31 Dose: Not Given Polyethylene Glycol (Miralax) 17 gm PO ONETIME ONE Stop: 04/07/18 18:58 Last Admin: 04/07/18 19:51 Dose: 17 gm Triamcinolone Acetonide (Triamcinolone Acetonide 0.1% Crm) 15 gm TOP DAILY [facility] Triamcinolone Acetonide (Triamcinolone Acetonide 0.1% Crm) 15 gm TOP DAILY [facility] Last Admin: 04/05/18 11:59 Dose: 1 applic Triamcinolone Acetonide (Triamcinolone Acetonide 0.1% Crm) 15 gm TOP BID [facility] Last Admin: 04/08/18 14:20 Dose: Not Given Vancomycin HCl (Pharmacy To Dose - Vancomycin) 1 dose .XX ASDIRECTED [facility] - Exam General: Alert, Oriented Lungs: Clear to Auscultation, Normal Respiratory Effort Cardiovascular: Regular Rate, Regular Rhythm GI/Abdominal Exam: Soft, Non-Tender Extremities: Non-Tender, No Pedal Edema Skin: Rash (patchy rash on arms and legs) Neurological: No New Focal Deficit - Problem List Review Problem List Initiated/Reviewed/Updated: Yes - Plan Plan:: 58 yo female admitted with rash and alcohol withdrawal. Will switch to PO prednisone. Patient is on augmentin. We will stop schedualed ativan and continue monitoring per [facility] protocol. Likely discharge home tomorrow.
[2018-04-09] MEDS: Docusate Sodium 100 MG Cap PO PRN (20:26)
[2018-04-09] MEDS: Thiamine 100 MG Tab PO SCH (20:27)
[2018-04-09] MEDS: QUEtiapine 25 MG Tab PO SCH (20:29)
[2018-04-09] MEDS: atorvaSTATin 40 MG Tab PO SCH (20:32)
[2018-04-09] MEDS: Bisacodyl 5 MG Tab PO PRN (20:32)
[2018-04-10] MEDS: Insulin Aspart 100 Units/ML 3 ML Pen SUBCUT SCH (06:53)
[2018-04-10] MEDS: Levothyroxine 112 MCG Tab PO SCH (06:56)
[2018-04-10] MEDS: Petrolatum,White Ointment 50 GM Tube TOP SCH (08:30)
[2018-04-10] MEDS: Pantoprazole 40 MG Vial IVPUSH SCH (08:31)
[2018-04-10] MEDS: Cholecalciferol (Vitamin D3) 1,000 Unit Tab PO SCH (08:32)
[2018-04-10] MEDS: Folic Acid/Vitamin B Complex With C Cap PO SCH (08:32)
[2018-04-10] MEDS: Lisinopril 10 MG Tab PO SCH (08:32)
[2018-04-10] MEDS: Amoxicillin/Clavulanate K 875-125 MG Tab PO SCH (08:32)
[2018-04-10] MEDS: Sertraline 50 MG Tab PO SCH (08:33)
[2018-04-10] MEDS: CALCIPOTRIENE 1 GM TOP SCH (08:36)
[2018-04-10 08:41] LABS: CHLORIDE,CL 103 mmol/L (98-107); SODIUM,NA 136 mmol/L (136-145)
[2018-04-10] MEDS: Bisacodyl 5 MG Tab PO PRN (08:46)
[2018-04-10] MEDS: Docusate Sodium 100 MG Cap PO PRN (08:46)
[2018-04-10] MEDS: Multivitamin Tab PO SCH (09:13)
[2018-04-10] MEDS: Triamcinolone Acetonide 0.1% Crm 80 GM Tube TOP SCH (09:13)
[2018-04-10] MEDS ORDERED: predniSONE 20 MG Tab PO ONE (10:17)
--- NOTE | 2018-04-10 10:37 | PCM.DCSUM1 ---
Discharge Summary - Discharge Data Discharge Date: 04/10/18 Discharge Disposition: Home, Self-Care 01 Condition: Good - Patient Summary/Data Operative Procedure(s) Performed: skin biopsy Consults: Consultations 04/05/18 16:49 Consult to Physician [CONS] Routine 04/07/18 12:56 OT Evaluation and Treatment [CONS] Routine PT Evaluation and Treatment [CONS] Routine Hospital Course: 58 yo female with pmh of alcohol abuse who presented with macular papular rash on arms and legs. She was admitted for ETOH detox. She was treated with ativan as needed for her withdrawals. For her rash she was treated with IV antibiotics and solumedrol with noticeable improvement. Skin biopsy was suggestive of chronic dermatitis. She was discharged on augment and a prednisone taper. - Patient Instructions Diet: Regular Diet as Tolerated - Discharge Plan *PRESCRIPTION DRUG MONITORING PROGRAM REVIEWED*: Not Applicable *COPY OF PRESCRIPTION DRUG MONITORING REPORT IN PATIENT JOE: Not Applicable Prescriptions/Med Rec: Amoxicillin/Clavulanate K [Augmentin 875-125 MG] 1 tab PO Q12HR #8 tablet predniSONE [Prednisone] See Taper PO DAILY #20 tablet Home Medications: Home Meds Calcipotriene [Calcitrene] 1 gm TP BID 04/04/18 [History] Levothyroxine 112 mcg PO ACBREAKFAST 04/04/18 [History] Lisinopril 40 mg PO DAILY 04/04/18 [History] Sertraline HCl 25 mg PO DAILY 04/04/18 [History] atorvaSTATin [Lipitor] 40 mg PO BEDTIME 04/04/18 [History] Amoxicillin/Clavulanate K [Augmentin 875-125 MG] 1 tab PO Q12HR #8 tablet [Rx] predniSONE [Prednisone] See Taper PO DAILY #20 tablet 04/10/18 [Rx] Patient Handouts: Alcohol Withdrawal, Sutured Wound Care, Psoriasis, Easy-to- Read Referrals: Kenisha Juarez NP [Nurse Practitioner] - 04/22/19 3:15 pm - Patient Data Vitals - Most Recent: Last Vital Signs Temp 36.8 C 04/10/18 08:00 Pulse 74 04/10/18 08:00 Resp 20 04/10/18 08:00 BP 138/71 04/10/18 08:32 Pulse Ox 97 04/10/18 08:00 Weight - Most Recent: 55.066 kg I&O - Last 24 hours: Intake & Output 04/09/18 04/10/18 04/10/18 22:59 06:59 14:59 Intake Total 1250 650 Output Total 1200 1000 Balance 50 -350 Lab Results - Last 24 hrs: Laboratory Results - last 24 hr 04/09/18 04/09/18 04/09/18 Range/Units 05:47 11:07 16:29 WBC 8.07 (4.0-11.0) K/uL RBC 2.51 L (4.30-5.90) M/uL Hgb 8.3 L (12.0-16.0) g/dL Hct 25.9 L (36.0-46.0) % MCV 103.2 H (80.0-98.0) fL MCH 33.1 H (27.0-32.0) pg MCHC 32.0 (31.0-37.0) g/dL RDW Std Deviation 49.7 (28.0-62.0) fl RDW Coeff of Amrik 13 (11.0-15.0) % Plt Count 388 (150-400) K/uL MPV 10.80 (7.40-12.00) fL Neut % (Auto) 76.2 (48.0-80.0) % Lymph % (Auto) 18.6 (16.0-40.0) % Cameron % (Auto) 5.0 (0.0-15.0) % Eos % (Auto) 0.1 (0.0-7.0) % Baso % (Auto) 0.1 (0.0-1.5) % Neut # (Auto) 6.2 H (1.4-5.7) K/uL Lymph # (Auto) 1.5 (0.6-2.4) K/uL Cameron # (Auto) 0.4 (0.0-0.8) K/uL Eos # (Auto) 0.0 (0.0-0.7) K/uL Baso # (Auto) 0.0 (0.0-0.1) K/uL Nucleated RBC % 0.0 /100WBC Nucleated RBCs # 0 K/uL Sodium (136-145) mmol/L Potassium (3.5-5.1) mmol/L Chloride (98-107) mmol/L Carbon Dioxide (21.0-32.0) mmol/L BUN (7.0-18.0) mg/dL Creatinine (0.6-1.0) mg/dL Est Cr Clr Drug Dosing mL/min Estimated GFR (MDRD) ml/min Glucose (74-106) mg/dL POC Glucose 173 H 167 H (60-110) mg/dL Calcium (8.5-10.1) mg/dL 04/10/18 04/10/18 Range/Units 08:22 08:22 WBC 15.11 H (4.0-11.0) K/uL RBC 3.03 L (4.30-5.90) M/uL Hgb 10.3 L (12.0-16.0) g/dL Hct 31.3 L (36.0-46.0) % MCV 103.3 H (80.0-98.0) fL MCH 34.0 H (27.0-32.0) pg MCHC 32.9 (31.0-37.0) g/dL RDW Std Deviation 49.7 (28.0-62.0) fl RDW Coeff of Amrik 13 (11.0-15.0) % Plt Count 417 H (150-400) K/uL MPV 10.20 (7.40-12.00) fL Neut % (Auto) 66.9 (48.0-80.0) % Lymph % (Auto) 26.0 (16.0-40.0) % Cameron % (Auto) 6.7 (0.0-15.0) % Eos % (Auto) 0.3 (0.0-7.0) % Baso % (Auto) 0.1 (0.0-1.5) % Neut # (Auto) 10.1 H (1.4-5.7) K/uL Lymph # (Auto) 3.9 H (0.6-2.4) K/uL Cameron # (Auto) 1.0 H (0.0-0.8) K/uL Eos # (Auto) 0.0 (0.0-0.7) K/uL Baso # (Auto) 0.0 (0.0-0.1) K/uL Nucleated RBC % 0.3 /100WBC Nucleated RBCs # 0 K/uL Sodium 136 (136-145) mmol/L Potassium 4.2 (3.5-5.1) mmol/L Chloride 103 (98-107) mmol/L Carbon Dioxide 29.2 (21.0-32.0) mmol/L BUN 20 H (7.0-18.0) mg/dL Creatinine 0.9 (0.6-1.0) mg/dL Est Cr Clr Drug Dosing 58.51 mL/min Estimated GFR (MDRD) > 60.0 ml/min Glucose 119 H (74-106) mg/dL POC Glucose (60-110) mg/dL Calcium 9.2 (8.5-10.1) mg/dL Med Orders - Current: Current Medications Acetaminophen (Tylenol) 650 mg PO Q6H PRN PRN Reason: Pain Albuterol/Ipratropium (Duoneb 3.0-0.5 Mg/3 Ml) 3 ml NEB Q4HRRT PRN PRN Reason: SOB/wheezing Last Admin: 04/05/18 11:47 Dose: 3 ml Amoxicillin/Clavulanate Potassium (Augmentin 875 Mg/125 Mg) 1 tab PO Q12HR [facility] Last Admin: 04/10/18 08:32 Dose: 1 tab Atorvastatin Calcium (Lipitor) 40 mg PO BEDTIME [facility] Last Admin: 04/09/18 20:32 Dose: 40 mg Bisacodyl (Dulcolax) 5 mg PO DAILY PRN PRN Reason: Constipation Last Admin: 04/10/18 08:46 Dose: 5 mg Calamine/Phenol (Gold Sultana Medicated Body Pwd) 1 gm TOP BID PRN PRN Reason: pruritus Cholecalciferol (Vitamin D3) 2,000 units PO DAILY [facility] Last Admin: 04/10/18 08:32 Dose: 2,000 units Docusate Sodium (Colace) 100 mg PO DAILY PRN PRN Reason: Constipation Last Admin: 04/10/18 08:46 Dose: 100 mg Insulin Aspart (Novolog) 0 unit SUBCUT TIDAC [facility]; Protocol Last Admin: 04/10/18 06:53 Dose: Not Given Levothyroxine Sodium (Levothyroxine) 112 mcg PO ACBREAKFAST [facility] Last Admin: 04/10/18 06:56 Dose: 112 mcg Lisinopril (Prinivil) 40 mg PO DAILY [facility] Last Admin: 04/10/18 08:32 Dose: 40 mg Lorazepam (Ativan) 0 mg IVPUSH Q4H PRN; Protocol PRN Reason: Withdrawal Symptoms Last Admin: 04/06/18 00:57 Dose: 1 mg Multivit/Ca Carb/B Cmplx/FA/Prenat (Renal Caps Softgel) 1 cap PO DAILY [facility] Last Admin: 04/10/18 08:32 Dose: 1 cap Multivitamins/Minerals/Vitamin C (Tab-A-Carol) 1 tab PO DAILY [facility] Last Admin: 04/10/18 09:13 Dose: 1 tab Ondansetron HCl (Zofran) 4 mg IVPUSH Q4H PRN PRN Reason: Nausea/Vomiting Last Admin: 04/05/18 09:54 Dose: 4 mg Oxycodone/Acetaminophen (Percocet 325-5 Mg) 1 tab PO Q4H PRN PRN Reason: Pain Last Admin: 04/09/18 20:30 Dose: 1 tab Pantoprazole Sodium (Protonix Iv) 40 mg IVPUSH DAILY [facility] Last Admin: 04/10/18 08:31 Dose: 40 mg Calcipotriene [ (Calcitrene] 1 Gm) 1 each TOP BID [facility] Last Admin: 04/10/18 08:36 Dose: Not Given Petrolatum (Aquaphor With Natural Healing) 0 gm TOP BID [facility] Last Admin: 04/10/18 08:30 Dose: 1 applic Promethazine HCl (Phenergan) 12.5 mg IM Q4H PRN PRN Reason: Vomiting Last Admin: 04/05/18 12:51 Dose: 12.5 mg Quetiapine Fumarate (Seroquel) 25 mg PO BEDTIME [facility] Last Admin: 04/09/18 20:29 Dose: 25 mg Sertraline HCl (Zoloft) 25 mg PO DAILY [facility] Last Admin: 04/10/18 08:33 Dose: 25 mg Sodium Chloride (Saline Flush) 10 ml FLUSH ASDIRECTED PRN PRN Reason: Keep Vein Open Sodium Chloride (Saline Flush) 2.5 ml FLUSH ASDIRECTED PRN PRN Reason: Keep Vein Open Thiamine HCl (Vitamin B-1) 100 mg PO BEDTIME [facility] Last Admin: 04/09/18 20:27 Dose: 100 mg Triamcinolone Acetonide (Kenalog 0.1% Crm) 0 gm TOP BID [facility] Last Admin: 04/10/18 09:13 Dose: 1 applic Discontinued Medications Cephalexin (Keflex) 500 mg PO QID [facility] Diphenhydramine HCl (Benadryl) 50 mg IVPUSH Q6H PRN PRN Reason: Itching Last Admin: 04/05/18 16:59 Dose: 50 mg Diphenhydramine HCl (Benadryl) 50 mg IVPUSH Q6H [facility] Last Admin: 04/08/18 19:07 Dose: 50 mg Doxepin HCl (Sinequan) 25 mg PO ONETIME ONE Stop: 04/05/18 16:49 Last Admin: 04/05/18 17:03 Dose: 25 mg Doxepin HCl (Sinequan) 25 mg PO ONETIME ONE Stop: 04/06/18 19:51 Last Admin: 04/06/18 21:28 Dose: 25 mg Doxepin HCl (Sinequan) 25 mg PO ONETIME ONE Stop: 04/07/18 14:50 Last Admin: 04/07/18 15:07 Dose: 25 mg Doxepin HCl (Sinequan) 25 mg PO ONETIME ONE Stop: 04/08/18 14:59 Last Admin: 04/08/18 16:22 Dose: 25 mg Multivitamins/Minerals 10 ml/Thiamine HCl 100 mg/ Folic Acid 1 mg/ Sodium Chloride 1,011.2 mls @ 250 drops/min IV ONETIME ONE Stop: 04/04/18 21:46 Last Admin: 04/04/18 22:00 Dose: 250 drops/min Lactated Ringer's (Ringers, Lactated) 1,000 mls @ 100 mls/hr IV ASDIRECTED [facility] Last Admin: 04/09/18 02:04 Dose: 100 mls/hr Vancomycin HCl 1 gm/ Sodium (Chloride) 250 mls @ 166.667 mls/hr IV Q12H [facility] Last Admin: 04/07/18 11:24 Dose: 166.667 mls/hr Ampicillin Sodium/Sulbactam (Sodium 3 gm/ Sodium Chloride) 100 mls @ 200 mls/ hr IV Q6H [facility] Last Admin: 04/06/18 05:44 Dose: 200 mls/hr Ampicillin Sodium/Sulbactam (Sodium 3 gm/ Sodium Chloride) 100 mls @ 200 mls/ hr IV Q6H [facility] Last Admin: 04/07/18 17:33 Dose: 200 mls/hr Lidocaine/Epinephrine (Xylocaine 1% With Epinephrine 1:100,000) 20 ml INJECT ONETIME ONE Stop: 04/06/18 11:01 Last Admin: 04/06/18 13:08 Dose: 20 ml Lisinopril (Prinivil) 40 mg PO DAILY [facility] Lorazepam (Ativan) 1 mg IVPUSH ONETIME ONE Stop: 04/04/18 20:42 Last Admin: 04/04/18 21:01 Dose: 1 mg Lorazepam (Ativan) 1 mg PO BID [facility] Last Admin: 04/09/18 08:01 Dose: 1 mg Methylprednisolone Sodium Succinate (Solu-Medrol) 40 mg IVPUSH Q6H [facility] Last Admin: 04/05/18 15:23 Dose: 40 mg Methylprednisolone Sodium Succinate (Solu-Medrol) 60 mg IVPUSH Q6H [facility] Last Admin: 04/07/18 17:33 Dose: 60 mg Methylprednisolone Sodium Succinate (Solu-Medrol) 40 mg IVPUSH Q8H [facility] Last Admin: 04/08/18 11:26 Dose: 40 mg Methylprednisolone Sodium Succinate (Solu-Medrol) 40 mg IVPUSH Q6H [facility] Last Admin: 04/09/18 09:00 Dose: 40 mg Mineral Oil/White Petrolatum (Hydrocerin Crm) 0 gm TOP BID [facility] Last Admin: 04/08/18 21:58 Dose: Not Given Ondansetron HCl (Zofran) 8 mg IVPUSH ONETIME ONE Stop: 04/04/18 20:47 Last Admin: 04/04/18 20:59 Dose: 8 mg Ondansetron HCl (Zofran) 8 mg IVPUSH ONETIME ONE Stop: 04/04/18 22:48 Last Admin: 04/04/18 22:52 Dose: 8 mg Ondansetron HCl (Zofran) Confirm Administered Dose 8 mg .ROUTE .STK-MED ONE Stop: 04/04/18 22:49 Last Admin: 04/04/18 23:06 Dose: Not Given Calcipotriene [ (Calcitrene] 1 Gm) 1 each PO BID [facility] Last Admin: 04/07/18 09:31 Dose: Not Given Polyethylene Glycol (Miralax) 17 gm PO ONETIME ONE Stop: 04/07/18 18:58 Last Admin: 04/07/18 19:51 Dose: 17 gm Prednisone (Prednisone) 40 mg PO ONETIME ONE Stop: 04/10/18 10:18 Triamcinolone Acetonide (Triamcinolone Acetonide 0.1% Crm) 15 gm TOP DAILY [facility] Triamcinolone Acetonide (Triamcinolone Acetonide 0.1% Crm) 15 gm TOP DAILY [facility] Last Admin: 04/05/18 11:59 Dose: 1 applic Triamcinolone Acetonide (Triamcinolone Acetonide 0.1% Crm) 15 gm TOP BID [facility] Last Admin: 04/08/18 14:20 Dose: Not Given Vancomycin HCl (Pharmacy To Dose - Vancomycin) 1 dose .XX ASDIRECTED [facility]
== END 2018-04-10 16:10 | disposition home or self-care (01) | DRG 897 ==
LOC: MW.ED 20:16 → MW.MS 22:14 → OBSVTOIN 04-05 12:53
PROVIDERS: ADMIT Internal Medicine; ATTEND Internal Medicine
PROC: 0HB6XZX Excision of Back Skin, External Approach, Diagnostic (ICD-10-PCS; principal; 2018-04-06)
DX: F10.239 Alcohol dependence with withdrawal, unspecified (principal); Z68.1 Body mass index [BMI] 19.9 or less, adult; R64 Cachexia; L30.9 Dermatitis, unspecified; K43.9 Ventral hernia without obstruction or gangrene; E78.00 Pure hypercholesterolemia, unspecified; I10 Essential (primary) hypertension; F41.9 Anxiety disorder, unspecified; F32.9 Major depressive disorder, single episode, unspecified; E03.9 Hypothyroidism, unspecified; F17.200 Nicotine dependence, unspecified, uncomplicated; F03.90 Unspecified dementia, unspecified severity, without behavioral disturbance, psychotic disturbance, mood disturbance, and anxiety; R62.7 Adult failure to thrive; M19.90 Unspecified osteoarthritis, unspecified site; L40.9 Psoriasis, unspecified; I77.89 Other specified disorders of arteries and arterioles; D63.8 Anemia in other chronic diseases classified elsewhere; K59.00 Constipation, unspecified; D72.1 Eosinophilia; Z79.899 Other long term (current) drug therapy
CPT/HCPCS: 36415; 74170; 74170-26; 80048; 80053; 80202; 80305-QW; 81001; 82150; 82272; 82306; 82607; 82728; 82746; 82962; 83036; 83550; 83690; 84439; 84443; 84484; 85025; 86592; 88305; 93005; 94640; 96365; 96375; 96376; 97161-GP; 97165-GO; 99284-25; A9270-GY; C9113; G0480; J0295; J1200; J1815-GY; J2060; J2405; J2550; J2920; J2930; J3370; J3411; J7030; J7040; J7050; J7120; J7620-GY

== ENCOUNTER 2018-05-09 12:49 | Observation (INO) | payer MEDICAID ==
--- NOTE | 2018-05-09 13:55 | EDM.PDOC ---
ED HPI GENERAL MEDICAL PROBLEM - General Chief Complaint: General Stated Complaint: PT SPOKE TO NURSE Time Seen by Provider: 05/09/18 13:04 Source of Information: Reports: Family History Limitations: Reports: No Limitations - History of Present Illness INITIAL COMMENTS - FREE TEXT/NARRATIVE: History of present illness: []Patient lives with her daughter who brought her in today because has not each in 5 days, is not getting out of bed, has psoriasis that is not under control and is generally unwell. When asked about each symptom she stated she has had all of this for the past year that is slowly progressing. Patient was recently admitted for alcohol withdrawal and has been off alcohol since she was discharged 2 weeks ago. During this admission skin biopsy was taken which came back as contact dermatitis. Patient's daughter states that her mother will not be going home with her today. She patient has seen several doctors in the past year and continues to search for different doctors. Review of systems: As per history of present illness and below otherwise all systems reviewed and negative. Past medical history: As per history of present illness and as reviewed below otherwise noncontributory. Surgical history: As per history of present illness and as reviewed below otherwise noncontributory. Social history: No reported history of drug or alcohol abuse. Family history: As per history of present illness and as reviewed below otherwise noncontributory. Physical exam: General: Well developed, well nourished in NAD HEENT: Atraumatic, normocephalic, pupils reactive, negative for conjunctival pallor or scleral icterus, mucous membranes moist, throat clear, neck supple, nontender, trachea midline. Lungs: Clear to auscultation, breath sounds equal bilaterally, chest nontender. Heart: S1S2, regular, negative for clicks, rubs, or JVD. Abdomen: Soft, nondistended, nontender. Negative for masses or hepatosplenomegaly. Negative for costovertebral tenderness. Pelvis: Stable nontender. Genitourinary: Deferred. Rectal: Deferred. Extremities: Atraumatic, negative for cords or calf pain. Neurovascular unremarkable. Neuro: Awake, alert, oriented. Cranial nerves II through XII unremarkable. Cerebellum unremarkable. Motor and sensory unremarkable throughout. Exam nonfocal. Skin:warm and dry Diagnostics: CBC, chemistry, lipase Therapeutics: IV hydration with banana bag, morphine, Zofran ED Course: Unremarkable Impression: Failure to thrive Prescriptions: n/a Plan: Consult the hospitalist to evaluate patient for social work therapist consult. Admit to hospital for services consult for possible long-term placement. Definitive disposition and diagnosis as appropriate pending reevaluation and review of above. psoriasis on body Pain Score (Numeric/FACES): 9 - Related Data Allergies Allergy/AdvReac Type Severity Reaction Status Date / Time No Known Allergies Allergy Verified 05/09/18 13:10 Home Meds: Home Meds Levothyroxine 112 mcg PO ACBREAKFAST 04/04/18 [History] Lisinopril 40 mg PO DAILY 04/04/18 [History] Sertraline HCl 50 mg PO DAILY 04/04/18 [History] atorvaSTATin [Lipitor] 40 mg PO BEDTIME 04/04/18 [History] Past Medical History - Past Health History Medical/Surgical History: Denies Medical/Surgical History Cardiovascular History: Reports: High Cholesterol, Hypertension, Other (See Below) Other Cardiovascular History: enlarged artery in heart Gastrointestinal History: Reports: Other (See Below) Other Gastrointestinal History: large abdominal hernia [employer] History: Reports: Neurological History: Reports: Other (See Below) Other Neuro History: confusion at times Psychiatric History: Reports: Addiction, Anxiety, Depression Endocrine/Metabolic History: Reports: Hypothyroidism Dermatologic History: Reports: Eczema, Psoriasis, Other (See Below) Other Dermatologic History: unknown skin condition - Infectious Disease History Infectious Disease History: Reports: Chicken Pox Social & Family History - Family History Family Medical History: Unobtainable - Tobacco Use Smoking Status *Q: Current Every Day Smoker Years of Tobacco use: 20 Packs/Tins Daily: 0.5 - Caffeine Use Caffeine Use: Reports: Tea - Recreational Drug Use Recreational Drug Use: No ED ROS GENERAL - Review of Systems Review Of Systems: ROS reveals no pertinent complaints other than HPI. ED EXAM, GENERAL - Physical Exam Exam: See Below (See history of present illness) Course - Vital Signs Last Recorded V/S: Last Vital Signs Temp 97.3 F 05/09/18 13:04 Pulse 97 05/09/18 13:04 Resp 18 05/09/18 13:04 BP 136/95 H 05/09/18 13:04 Pulse Ox 100 05/09/18 13:04 - Orders/Labs/Meds Orders: Active Orders 24 hr Category Date Time Status Patient Status [ADT] Stat ADT 05/09/18 16:36 Active UA W/MICROSCOPIC [URIN] Stat Lab 05/09/18 14:29 Ordered Sodium Chloride 0.9% [Saline Flush] Med 05/09/18 14:29 Active 10 ml FLUSH ASDIRECTED PRN Sodium Chloride 0.9% [Saline Flush] Med 05/09/18 14:29 Active 2.5 ml FLUSH ASDIRECTED PRN Saline Lock Insert [OM.PC] Stat Oth 05/09/18 14:28 Ordered Medication Orders Atorvastatin Calcium (Lipitor) 40 mg PO BEDTIME [facility] Betamethasone Dipropionate (Diprosone 0.05% Oint) 1 gm TOP BID [facility] Diphenhydramine HCl (Benadryl) 50 mg IVPUSH Q8H PRN PRN Reason: Itching Levothyroxine Sodium (Levothyroxine) 112 mcg PO ACBREAKFAST [facility] Methylprednisolone Sodium Succinate (Solu-Medrol) 60 mg IV Q6H [facility] Non-Formulary Medication (Lisinopril [Lisinopril]) 40 mg PO DAILY [facility] Sertraline HCl (Zoloft) 50 mg PO DAILY [facility] Sodium Chloride (Saline Flush) 10 ml FLUSH ASDIRECTED PRN PRN Reason: Keep Vein Open Last Admin: 05/09/18 14:55 Dose: 10 ml Sodium Chloride (Saline Flush) 2.5 ml FLUSH ASDIRECTED PRN PRN Reason: Keep Vein Open Last Admin: 05/09/18 14:55 Dose: 2.5 ml Labs: Laboratory Tests 05/09/18 05/09/18 Range/Units 15:12 15:12 WBC 12.04 H (4.0-11.0) K/uL RBC 3.51 L (4.30-5.90) M/uL Hgb 11.6 L (12.0-16.0) g/dL Hct 35.8 L (36.0-46.0) % MCV 102.0 H (80.0-98.0) fL MCH 33.0 H (27.0-32.0) pg MCHC 32.4 (31.0-37.0) g/dL RDW Std Deviation 47.9 (28.0-62.0) fl RDW Coeff of Amrik 13 (11.0-15.0) % Plt Count 379 (150-400) K/uL MPV 10.40 (7.40-12.00) fL Neut % (Auto) 65.0 (48.0-80.0) % Lymph % (Auto) 20.0 (16.0-40.0) % Beckham % (Auto) 7.1 (0.0-15.0) % Eos % (Auto) 7.6 H (0.0-7.0) % Baso % (Auto) 0.3 (0.0-1.5) % Neut # (Auto) 7.8 H (1.4-5.7) K/uL Lymph # (Auto) 2.4 (0.6-2.4) K/uL Beckham # (Auto) 0.9 H (0.0-0.8) K/uL Eos # (Auto) 0.9 H (0.0-0.7) K/uL Baso # (Auto) 0.0 (0.0-0.1) K/uL Nucleated RBC % 0.0 /100WBC Nucleated RBCs # 0 K/uL Sodium 133 L (136-145) mmol/L Potassium 4.0 (3.5-5.1) mmol/L Chloride 100 (98-107) mmol/L Carbon Dioxide 23.5 (21.0-32.0) mmol/L BUN 32 H (7.0-18.0) mg/dL Creatinine 1.0 (0.6-1.0) mg/dL Est Cr Clr Drug Dosing 56.39 mL/min Estimated GFR (MDRD) 56.7 ml/min Glucose 94 (74-106) mg/dL Calcium 9.6 (8.5-10.1) mg/dL Total Bilirubin 0.5 (0.2-1.0) mg/dL AST 19 (15-37) IU/L ALT 19 (14-63) IU/L Alkaline Phosphatase 85 (46-116) U/L Troponin I < 0.050 (0.000-0.056) ng/mL Total Protein 7.0 (6.4-8.2) g/dL Albumin 3.7 (3.4-5.0) g/dL Globulin 3.3 (2.0-3.5) g/dL Albumin/Globulin Ratio 1.1 L (1.3-2.8) Ethyl Alcohol <3 mg/dL Meds: Medications Generic Name Dose Route Start Last Admin Trade Name Alberto PRN Reason Stop Dose Admin Atorvastatin Calcium 40 mg 05/09/18 21:00 Lipitor PO BEDTIME [facility] Betamethasone Dipropionate 1 gm 05/09/18 17:15 Diprosone 0.05% Oint TOP BID [facility] Diphenhydramine HCl 50 mg 05/09/18 17:08 Benadryl IVPUSH Q8H PRN Itching Levothyroxine Sodium 112 mcg 05/10/18 07:30 Levothyroxine PO ACBREAKFAST [facility] Methylprednisolone Sodium Succinate 60 mg 05/09/18 17:15 Solu-Medrol IV Q6H [facility] Non-Formulary Medication 40 mg 05/10/18 09:00 Lisinopril [Lisinopril] PO DAILY [facility] Sertraline HCl 50 mg 05/10/18 09:00 Zoloft PO DAILY [facility] Sodium Chloride 10 ml 05/09/18 14:29 05/09/18 14:55 Saline Flush FLUSH 10 ml ASDIRECTED PRN Administration Keep Vein Open Sodium Chloride 2.5 ml 05/09/18 14:29 05/09/18 14:55 Saline Flush FLUSH 2.5 ml ASDIRECTED PRN Administration Keep Vein Open Discontinued Medications Generic Name Dose Route Start Last Admin Trade Name Alberto PRN Reason Stop Dose Admin Diphenhydramine HCl 50 mg 05/09/18 15:51 05/09/18 16:27 Benadryl IVPUSH 05/09/18 15:52 50 mg ONETIME ONE Administration Multivitamins/Minerals 10 ml/ 1,011.2 mls @ 999 mls/hr 05/09/18 14:29 14:55 Thiamine HCl 100 mg/ Folic IV 05/09/18 15:29 999 mls/hr Acid 1 mg/ Sodium Chloride ONETIME ONE Administration Morphine Sulfate 2 mg 05/09/18 15:03 05/09/18 15:21 Morphine IVPUSH 05/09/18 15:04 2 mg ONETIME ONE Administration Ondansetron HCl 4 mg 05/09/18 14:31 05/09/18 14:55 Zofran IVPUSH 05/09/18 14:32 4 mg ONETIME ONE Administration Departure - Departure Time of Disposition: 17:18 Disposition: Refer to Observation Condition: Good, Fair Clinical Impression: Failure to thrive Qualifiers: Failure to thrive age range: in adult Qualified Code(s): R62.7 - Adult failure to thrive - Discharge Information *PRESCRIPTION DRUG MONITORING PROGRAM REVIEWED*: No *COPY OF PRESCRIPTION DRUG MONITORING REPORT IN PATIENT JOE: No - My Orders Last 24 Hours: My Active Orders 05/09/18 14:28 Saline Lock Insert [OM.PC] Stat 05/09/18 14:29 UA W/MICROSCOPIC [URIN] Stat Sodium Chloride 0.9% [Saline Flush] 10 ml FLUSH ASDIRECTED PRN Sodium Chloride 0.9% [Saline Flush] 2.5 ml FLUSH ASDIRECTED PRN 05/09/18 16:36 Patient Status [ADT] Stat - Assessment/Plan Last 24 Hours: My Active Orders 05/09/18 14:28 Saline Lock Insert [OM.PC] Stat 05/09/18 14:29 UA W/MICROSCOPIC [URIN] Stat Sodium Chloride 0.9% [Saline Flush] 10 ml FLUSH ASDIRECTED PRN Sodium Chloride 0.9% [Saline Flush] 2.5 ml FLUSH ASDIRECTED PRN 05/09/18 16:36 Patient Status [ADT] Stat
[2018-05-09] MEDS ORDERED: Sodium Chloride 0.9% 10 ML Syringe FLUSH PRN (14:29)
[2018-05-09] MEDS ORDERED: Sodium Chloride 0.9% 2.5 ML Syringe FLUSH PRN (14:29)
[2018-05-09] MEDS ORDERED: MVI, Adult with Vitamin K 10 ML, Thiamine 100 MG, Folic Acid 1 MG in Sodium Chloride 0.... IV ONE ×4 (14:29)
[2018-05-09] MEDS ORDERED: Ondansetron 4 MG/2 ML SDV IVPUSH ONE (14:31)
[2018-05-09] MEDS ORDERED: Morphine 2 MG/ML Syringe IVPUSH ONE (15:03)
[2018-05-09] MEDS ORDERED: diphenhydrAMINE 50 MG/ML SDV IVPUSH ONE (15:51)
[2018-05-09 16:01] LABS: CHLORIDE,CL 100 mmol/L (98-107); SODIUM,NA 133 mmol/L (136-145)
--- NOTE | 2018-05-09 17:01 | PCM.HP ---
H&P History of Present Illness - General Date of Service: 05/09/18 Admit Problem/Dx: Admission Diagnosis/Problem Admission Diagnosis/Problem Pain Source of Information: Patient History Limitations: Reports: No Limitations - History of Present Illness Initial Comments - Free Text/Narative: 58F with a history of chronic dermatitis, HTN, Hypothyroidism that presents today dropped off by her daughter in law for pain, itching secondary to her generalized rash. She was admitted in March, for acute alcohol intoxication and detox. She was incidentally found to have a generalized rash covering her back, extensor surfaces and sparing the palms and soles. Patient states that the prednisone and augmentin that were prescribed to her helped, but since they finished the rash has come back worse. Patient lives with the her son and daughter in law who primarily take care of her. Secondary to discomfort and pain, patient hasnt had anything to eat in the last 5 days. She was dropped off by her daughter in law who is frustrated with the patients pain and inability to get things under control. She doesn't want the patient to come back and live with her. Patient is no longer drinking alcohol, says she hasn't drank at all since her last hospital stay. When asked, patient says that if her pain was under control, she is fully able to live alone and complete ADL's such as cooking, cleaning, ambulating. psoriasis on body Pain Score (Numeric/FACES): 9 - Related Data Allergies/Adverse Reactions: Allergies Allergy/AdvReac Type Severity Reaction Status Date / Time No Known Allergies Allergy Verified 05/09/18 13:10 Home Medications: Home Meds Levothyroxine 112 mcg PO ACBREAKFAST 04/04/18 [History] Lisinopril 40 mg PO DAILY 04/04/18 [History] Sertraline HCl 50 mg PO DAILY 04/04/18 [History] atorvaSTATin [Lipitor] 40 mg PO BEDTIME 04/04/18 [History] Past Medical History - Past Health History Medical/Surgical History: Denies Medical/Surgical History Cardiovascular History: Reports: High Cholesterol, Hypertension, Other (See Below) Other Cardiovascular History: enlarged artery in heart Gastrointestinal History: Reports: Other (See Below) Other Gastrointestinal History: large abdominal hernia [employer]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: Neurological History: Reports: Other (See Below) Other Neuro History: confusion at times Psychiatric History: Reports: Addiction, Anxiety, Depression Endocrine/Metabolic History: Reports: Hypothyroidism Dermatologic History: Reports: Eczema, Psoriasis, Other (See Below) Other Dermatologic History: unknown skin condition - Infectious Disease History Infectious Disease History: Reports: Chicken Pox Social & Family History - Family History Family Medical History: Unobtainable - Tobacco Use Smoking Status *Q: Current Every Day Smoker Years of Tobacco use: 20 Packs/Tins Daily: 0.5 - Caffeine Use Caffeine Use: Reports: Tea - Recreational Drug Use Recreational Drug Use: No H&P Review of Systems - Review of Systems: Review Of Systems: ROS reveals no pertinent complaints other than HPI. Exam - Exam Exam: See Below - Vital Signs Vital Signs: Last Vital Signs Temp 36.3 C 05/09/18 13:04 Pulse 97 05/09/18 13:04 Resp 18 05/09/18 13:04 BP 136/95 H 05/09/18 13:04 Pulse Ox 100 05/09/18 13:04 Weight: 58.967 kg - Exam General: Alert, Oriented, Cooperative HEENT: PERRLA, Hearing Intact, Mucosa Moist & Carlin, Nares Patent, Normal Nasal Septum, Posterior Pharynx Clear, Conjunctiva Clear, EOMI, EACs Clear, TMs Clear Neck: Supple, Trachea Midline, 2 Lungs: Clear to Auscultation, Normal Respiratory Effort Cardiovascular: Regular Rate, Regular Rhythm GI/Abdominal Exam: Normal Bowel Sounds, Soft, Non-Tender, No Organomegaly, No Distention, No Abnormal Bruit, No Mass, Pelvis Stable Back Exam: Normal Inspection, Full Range of Motion. No: CVA Tenderness (L), CVA Tenderness (R) Extremities: Normal Inspection, Normal Range of Motion, Non-Tender, No Pedal Edema, Normal Capillary Refill Skin: Rash, Other (generalized erythematous, pustular rash that involves the is diffuse, sparing the palms and soles. No warmth, no ulceration.) - Patient Data Lab Results Last 24 hrs: Laboratory Results - last 24 hr 05/09/18 05/09/18 Range/Units 15:12 15:12 WBC 12.04 H (4.0-11.0) K/uL RBC 3.51 L (4.30-5.90) M/uL Hgb 11.6 L (12.0-16.0) g/dL Hct 35.8 L (36.0-46.0) % MCV 102.0 H (80.0-98.0) fL MCH 33.0 H (27.0-32.0) pg MCHC 32.4 (31.0-37.0) g/dL RDW Std Deviation 47.9 (28.0-62.0) fl RDW Coeff of Amrik 13 (11.0-15.0) % Plt Count 379 (150-400) K/uL MPV 10.40 (7.40-12.00) fL Neut % (Auto) 65.0 (48.0-80.0) % Lymph % (Auto) 20.0 (16.0-40.0) % Bennett % (Auto) 7.1 (0.0-15.0) % Eos % (Auto) 7.6 H (0.0-7.0) % Baso % (Auto) 0.3 (0.0-1.5) % Neut # (Auto) 7.8 H (1.4-5.7) K/uL Lymph # (Auto) 2.4 (0.6-2.4) K/uL Bennett # (Auto) 0.9 H (0.0-0.8) K/uL Eos # (Auto) 0.9 H (0.0-0.7) K/uL Baso # (Auto) 0.0 (0.0-0.1) K/uL Nucleated RBC % 0.0 /100WBC Nucleated RBCs # 0 K/uL Sodium 133 L (136-145) mmol/L Potassium 4.0 (3.5-5.1) mmol/L Chloride 100 (98-107) mmol/L Carbon Dioxide 23.5 (21.0-32.0) mmol/L BUN 32 H (7.0-18.0) mg/dL Creatinine 1.0 (0.6-1.0) mg/dL Est Cr Clr Drug Dosing 56.39 mL/min Estimated GFR (MDRD) 56.7 ml/min Glucose 94 (74-106) mg/dL Calcium 9.6 (8.5-10.1) mg/dL Total Bilirubin 0.5 (0.2-1.0) mg/dL AST 19 (15-37) IU/L ALT 19 (14-63) IU/L Alkaline Phosphatase 85 (46-116) U/L Troponin I < 0.050 (0.000-0.056) ng/mL Total Protein 7.0 (6.4-8.2) g/dL Albumin 3.7 (3.4-5.0) g/dL Globulin 3.3 (2.0-3.5) g/dL Albumin/Globulin Ratio 1.1 L (1.3-2.8) Ethyl Alcohol <3 mg/dL Result Diagrams: 05/09/18 15:12 05/09/18 15:12 Problem List Initiated/Reviewed/Updated: Yes Orders Last 24hrs: Active Orders 24 hr Category Date Time Status Patient Status [ADT] Stat ADT 05/09/18 16:36 Active UA W/MICROSCOPIC [URIN] Stat Lab 05/09/18 14:29 Ordered Sodium Chloride 0.9% [Saline Flush] Med 05/09/18 14:29 Active 10 ml FLUSH ASDIRECTED PRN Sodium Chloride 0.9% [Saline Flush] Med 05/09/18 14:29 Active 2.5 ml FLUSH ASDIRECTED PRN Saline Lock Insert [OM.PC] Stat Oth 05/09/18 14:28 Ordered Medication Orders Sodium Chloride (Saline Flush) 10 ml FLUSH ASDIRECTED PRN PRN Reason: Keep Vein Open Last Admin: 05/09/18 14:55 Dose: 10 ml Sodium Chloride (Saline Flush) 2.5 ml FLUSH ASDIRECTED PRN PRN Reason: Keep Vein Open Last Admin: 05/09/18 14:55 Dose: 2.5 ml Assessment/Plan Comment:: Assessment: #1. Chronic Dermatitis #2. Pain, itching secondary to #1 #3. History of HTN, Hypothyroidism, chronic dermatitis with psoriasis features Plan: #1. Admit to the floor for observation. Full code. Vitals per floor routine. SCD for DVT prophylaxis. #2. IV Solumedrol 60mg q6h #3. Benadryl 50mg IV daily #4. Continue home meds #5. Social work to help with disposition. Discharge planning to include discussing the case with the family, and having the patient formally assessed by a hockey instructor along with establishing with a PCP. Anticipate discharge tomorrow.
[2018-05-09] MEDS: methylPREDNISolone Sodium Succinate 40 MG/1 ML SDV IV SCH ×2 (18:01→23:25)
[2018-05-09] MEDS ORDERED: LORazepam 2 MG/ML SDV IVPUSH PRN (18:21)
[2018-05-09] MEDS: LORazepam 2 MG/ML SDV IVPUSH PRN ×2 (18:36→23:25)
[2018-05-09] MEDS: diphenhydrAMINE 50 MG/ML SDV IVPUSH PRN (18:36)
[2018-05-09] MEDS ORDERED: atorvaSTATin 40 MG Tab PO SCH (21:00)
[2018-05-10] MEDS: diphenhydrAMINE 50 MG/ML SDV IVPUSH PRN (04:37)
[2018-05-10] MEDS: methylPREDNISolone Sodium Succinate 40 MG/1 ML SDV IV SCH ×3 (04:37→12:01)
[2018-05-10] MEDS ORDERED: Levothyroxine 112 MCG Tab PO SCH (07:30)
[2018-05-10] MEDS: LORazepam 2 MG/ML SDV IVPUSH PRN (08:07)
[2018-05-10] MEDS ORDERED: Sertraline 50 MG Tab PO SCH (09:00)
[2018-05-10] MEDS ORDERED: Lisinopril 10 MG Tab PO SCH (09:00)
[2018-05-10] MEDS ORDERED: LORazepam 1 MG Tab PO ONE (11:59)
--- NOTE | 2018-05-11 07:27 | PCM.DCSUM1 ---
Discharge Summary - Hospital Course Free Text/Narrative:: Admission date: 05/09/2018 Discharge date: 05/10/2018 Admission diagnosis: #1. Chronic dermatitis #2. Severe pruritis secondary to #1 #3. History of HTN, Hypothyroidism, alcoholism Hospital course: 58F with the history above was admitted to the hospital for observation for pain and symptom control of severe generalized dermatitis involving the torso, all 4 extremities and sparing the palms and soles. Patient does have a known history of this for which a skin biopsy was obtained at the last hospital stay that showed chronic dermatitis with possible psoriasis features but the pathology report appears to be unclear. Patient was treated with solumedrol, benadryl that helped the rash considerably. She felt better the next morning and was ok going home with a referral to see a lithograph printer for further work up of this rash and to see me in clinic next week. She was sent home on benadryl and prednisone. Patient understands and agrees to the plan. - Discharge Data Discharge Date: 05/11/18 Discharge Disposition: Home, Self-Care 01 Condition: Fair - Patient Summary/Data Consults: Consultations 05/10/18 07:15 Consult to Physical Therapy [PT Evaluation and Treatment] [CONS] Routine - Patient Instructions Diet: Usual Diet as Tolerated Activity: As Tolerated - Discharge Plan *PRESCRIPTION DRUG MONITORING PROGRAM REVIEWED*: No *COPY OF PRESCRIPTION DRUG MONITORING REPORT IN PATIENT JOE: No Prescriptions/Med Rec: diphenhydrAMINE [Benadryl] 50 mg PO BID PRN 30 Days #60 cap PRN Reason: Itching Pantoprazole Sodium [Protonix] 40 mg PO DAILY 14 Days #14 tablet. predniSONE [Prednisone] 20 mg PO DAILY 14 Days #14 tablet Home Medications: Home Meds Levothyroxine 112 mcg PO ACBREAKFAST 04/04/18 [History] Lisinopril 40 mg PO DAILY 04/04/18 [History] Sertraline HCl 50 mg PO DAILY 04/04/18 [History] atorvaSTATin [Lipitor] 40 mg PO BEDTIME 04/04/18 [History] Pantoprazole Sodium [Protonix] 40 mg PO DAILY 14 Days #14 tablet. 05/10/18 [Rx ] diphenhydrAMINE [Benadryl] 50 mg PO BID PRN 30 Days #60 cap 05/10/18 [Rx] predniSONE [Prednisone] 20 mg PO DAILY 14 Days #14 tablet 05/10/18 [Rx] Patient Handouts: Diphenhydramine capsules or tablets, Pantoprazole tablets, Prednisone tablets, Psoriasis, [id number] Referrals: [facility] [Outside] Val Torres PA [Ordering Only Provider] - 06/13/18 1:00 pm Ady Morgan MD [Resident] - 05/17/18 2:15 pm - Patient Data Vitals - Most Recent: Last Vital Signs Temp 36.5 C 05/10/18 08:12 Pulse 88 05/10/18 08:12 Resp 18 05/10/18 08:12 BP 112/61 05/10/18 08:12 Pulse Ox 99 05/10/18 08:12 Weight - Most Recent: 58.967 kg Lab Results - Last 24 hrs: Laboratory Results - last 24 hr 05/10/18 05/10/18 Range/Units 06:00 08:45 Vitamin B12 775 (193-986) pg/mL Folate 51.20 (8.60-58.90) ng/mL Rheumatoid Factor Scrn NEGATIVE Med Orders - Current: Current Medications Discontinued Medications Atorvastatin Calcium (Lipitor) 40 mg PO BEDTIME [facility] Last Admin: 05/09/18 21:03 Dose: 40 mg Betamethasone Dipropionate (Diprosone 0.05% Oint) 1 gm TOP BID AMY Last Admin: 05/10/18 08:04 Dose: 1 gm Diphenhydramine HCl (Benadryl) 50 mg IVPUSH ONETIME ONE Stop: 05/09/18 15:52 Last Admin: 05/09/18 16:27 Dose: 50 mg Diphenhydramine HCl (Benadryl) 50 mg IVPUSH Q8H PRN PRN Reason: Itching Last Admin: 05/10/18 04:37 Dose: 50 mg Multivitamins/Minerals 10 ml/Thiamine HCl 100 mg/ Folic Acid 1 mg/ Sodium Chloride 1,011.2 mls @ 999 mls/hr IV ONETIME ONE Stop: 05/09/18 15:29 Last Admin: 05/09/18 14:55 Dose: 999 mls/hr Levothyroxine Sodium (Levothyroxine) 112 mcg PO ACBREAKFAST [facility] Last Admin: 05/10/18 07:22 Dose: 112 mcg Lisinopril (Prinivil) 40 mg PO DAILY [facility] Last Admin: 05/10/18 08:06 Dose: 40 mg Lorazepam (Ativan) 1 mg IVPUSH Q4H PRN PRN Reason: Agitation Last Admin: 05/10/18 08:07 Dose: 1 mg Lorazepam (Ativan) 0 mg IVPUSH Q4H PRN; Protocol PRN Reason: Withdrawal Symptoms Lorazepam (Ativan) 1 mg PO ONETIME ONE Stop: 05/10/18 12:00 Last Admin: 05/10/18 12:08 Dose: 1 mg Methylprednisolone Sodium Succinate (Solu-Medrol) 60 mg IV Q6H [facility] Last Admin: 05/10/18 12:01 Dose: Not Given Morphine Sulfate (Morphine) 2 mg IVPUSH ONETIME ONE Stop: 05/09/18 15:04 Last Admin: 05/09/18 15:21 Dose: 2 mg Ondansetron HCl (Zofran) 4 mg IVPUSH ONETIME ONE Stop: 05/09/18 14:32 Last Admin: 05/09/18 14:55 Dose: 4 mg Sertraline HCl (Zoloft) 50 mg PO DAILY [facility] Last Admin: 05/10/18 08:07 Dose: 50 mg Sodium Chloride (Saline Flush) 10 ml FLUSH ASDIRECTED PRN PRN Reason: Keep Vein Open Last Admin: 05/09/18 14:55 Dose: 10 ml Sodium Chloride (Saline Flush) 2.5 ml FLUSH ASDIRECTED PRN PRN Reason: Keep Vein Open Last Admin: 05/09/18 14:55 Dose: 2.5 ml
== END 2018-05-10 12:50 | disposition home or self-care (01) ==
LOC: MW.ED 12:49 → MW.MS 16:44
PROVIDERS: ADMIT Internal Medicine; ATTEND Internal Medicine
DX: L30.9 Dermatitis, unspecified (principal); I10 Essential (primary) hypertension; F17.210 Nicotine dependence, cigarettes, uncomplicated; E78.00 Pure hypercholesterolemia, unspecified; E03.9 Hypothyroidism, unspecified; Z79.899 Other long term (current) drug therapy
CPT/HCPCS: 36415; 80053; 81001; 82607; 82746; 82784; 83516; 84484; 85025; 85027; 86038; 86430; 96365; 96366; 96375; 96376; 97161; 99285; A9270; G0378; G0480; J1200; J2060; J2270; J2405; J2920; J3411; J7040; 99283

== ENCOUNTER 2018-11-14 13:35 | Emergency (ER) | payer MEDICAID ==
[2018-11-14] MEDS ORDERED: Ketorolac 30 MG/ML SDV IM ONE (14:23)
--- NOTE | 2018-11-14 14:34 | EDM.PDOC ---
ED HPI GENERAL MEDICAL PROBLEM - General Chief Complaint: Skin Complaint Stated Complaint: RASH Time Seen by Provider: 11/14/18 13:38 Source of Information: Reports: Patient History Limitations: Reports: No Limitations - History of Present Illness INITIAL COMMENTS - FREE TEXT/NARRATIVE: History of present illness: []Patient was brought in by her daughter with complaint of few's rash for a year and a half. She states that she has been evaluated by a hand engraver in [facility], [facility] and [place] and has had multiple workups including biopsies and no one can figure her diagnosis. Patient's appointment with Dr. Morgan her primary at this time was canceled and is very upset that she feels that she should be seen. She is not having any fevers, chills, nausea, vomiting or any other systemic symptoms. She has previously been treated with antibiotics , steroids, topical creams and several other meds without relief. Review of systems: As per history of present illness and below otherwise all systems reviewed and negative. Past medical history: As per history of present illness and as reviewed below otherwise noncontributory. Surgical history: As per history of present illness and as reviewed below otherwise noncontributory. Social history: No reported history of drug or alcohol abuse. Family history: As per history of present illness and as reviewed below otherwise noncontributory. Physical exam: General: Well developed, well nourished in NAD HEENT: Atraumatic, normocephalic, pupils reactive, negative for conjunctival pallor or scleral icterus, mucous membranes moist, throat clear, neck supple, nontender, trachea midline. Lungs: Clear to auscultation, breath sounds equal bilaterally, chest nontender. Heart: S1S2, regular, negative for clicks, rubs, or JVD. Abdomen: NABS, Soft, nondistended, nontender. Negative for masses or hepatosplenomegaly. Negative for costovertebral tenderness. Pelvis: Stable nontender. Genitourinary: Deferred. Rectal: Deferred. Extremities: Atraumatic, negative for cords or calf pain. Neurovascular unremarkable. Neuro: Awake, alert, oriented. Cranial nerves II through XII unremarkable. Cerebellum unremarkable. Motor and sensory unremarkable throughout. Exam nonfocal. Skin diffuse rash mostly on the dorsal hands and forearms and around scalp that appears to be similar to a psoriatic rash. Diagnostics: None Therapeutics: Toradol and Benadryl ED Course: Stable Impression: Chronic rash Prescriptions: Diclofenac Plan: Take meds as directed, follow up with your primary care physician, return to ER if symptoms worsen or change. Definitive disposition and diagnosis as appropriate pending reevaluation and review of above. Generalized Pain Score (Numeric/FACES): 9 - Related Data Allergies Allergy/AdvReac Type Severity Reaction Status Date / Time No Known Allergies Allergy Verified 11/14/18 13:48 Home Meds: Home Meds Diclofenac Sodium [Voltaren] 75 mg PO BIDMEALS PRN #20 tab.cr 11/14/18 [Rx] Escitalopram Oxalate [Lexapro] 50 mg PO DAILY 11/14/18 [History] Past Medical History - Past Health History Medical/Surgical History: Denies Medical/Surgical History Cardiovascular History: Reports: High Cholesterol, Hypertension, Other (See Below) Other Cardiovascular History: enlarged artery in heart Gastrointestinal History: Reports: Other (See Below) Other Gastrointestinal History: large abdominal hernia 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: Musculoskeletal History: Reports: Arthritis Neurological History: Reports: Other (See Below) Other Neuro History: confusion at times Psychiatric History: Reports: Addiction, Anxiety, Depression Endocrine/Metabolic History: Reports: Hypothyroidism Dermatologic History: Reports: Eczema, Psoriasis, Other (See Below) Other Dermatologic History: unknown skin condition - Infectious Disease History Infectious Disease History: Reports: Chicken Pox, Measles - Past Surgical History Respiratory Surgical History: Reports: None Social & Family History - Family History Family Medical History: Noncontributory - Tobacco Use Smoking Status *Q: Current Every Day Smoker Years of Tobacco use: 20 Packs/Tins Daily: 0.5 - Caffeine Use Caffeine Use: Reports: Soda - Recreational Drug Use Recreational Drug Use: No ED ROS GENERAL - Review of Systems Review Of Systems: ROS reveals no pertinent complaints other than HPI. ED EXAM, SKIN/RASH Exam: See Below (See history of present illness) Course - Vital Signs Last Recorded V/S: Last Vital Signs Temp 97.2 F 11/14/18 13:50 Pulse 75 11/14/18 13:50 Resp 16 11/14/18 13:50 BP 138/75 11/14/18 13:50 Pulse Ox 96 11/14/18 13:50 - Orders/Labs/Meds Meds: Medications Discontinued Medications Generic Name Dose Route Start Last Admin Trade Name Freq PRN Reason Stop Dose Admin Diphenhydramine HCl 50 mg 11/14/18 14:47 Benadryl PO 11/14/18 14:48 ONETIME ONE Ketorolac Tromethamine 30 mg 11/14/18 14:23 11/14/18 14:39 Toradol IM 11/14/18 14:24 30 mg ONETIME ONE Administration Departure - Departure Time of Disposition: 14:34 Disposition: Home, Self-Care 01 Condition: Good Clinical Impression: Chronic pruritic rash in adult - Discharge Information *PRESCRIPTION DRUG MONITORING PROGRAM REVIEWED*: No *COPY OF PRESCRIPTION DRUG MONITORING REPORT IN PATIENT JOE: No Prescriptions: Diclofenac Sodium [Voltaren] 75 mg PO BIDMEALS PRN #20 tab.cr PRN Reason: Pain Referrals: PCP,None [Primary Care Provider] - Forms: ED Department Discharge Additional Instructions: The following information is given to patients seen in the emergency department who are being discharged to home. This information is to outline your options for follow-up care. We provide all patients seen in our emergency department with a follow-up referral. The need for follow-up, as well as the timing and circumstances, are variable depending upon the specifics of your emergency department visit. If you don't have a primary care physician on staff, we will provide you with a referral. We always advise you to contact your personal physician following an emergency department visit to inform them of the circumstance of the visit and for follow-up with them and/or the need for any referrals to a consulting specialist. The emergency department will also refer you to a specialist when appropriate. This referral assures that you have the opportunity for follow-up care with a specialist. All of these measure are taken in an effort to provide you with optimal care, which includes your follow-up. Under all circumstances we always encourage you to contact your private physician who remains a resource for coordinating your care. When calling for follow-up care, please make the office aware that this follow-up is from your recent emergency room visit. If for any reason you are refused follow-up, please contact the [facility] Department at and asked to speak to the emergency department charge nurse. [facility] [address] [place] [id number]
[2018-11-14] MEDS ORDERED: diphenhydrAMINE 25 MG Cap PO ONE (14:47)
== END 2018-11-14 15:08 | disposition home or self-care (01) ==
LOC: MW.ED 13:35
DX: L29.9 Pruritus, unspecified (principal); F41.9 Anxiety disorder, unspecified; F32.9 Major depressive disorder, single episode, unspecified; F17.210 Nicotine dependence, cigarettes, uncomplicated; Z79.899 Other long term (current) drug therapy
CPT/HCPCS: 96372; 99282; A9270; J1885

== ENCOUNTER 2020-01-20 20:45 | Inpatient (IN) | payer MEDICAID ==
[2020-01-20] MEDS ORDERED: Sodium Chloride 0.9% 10 ML Syringe FLUSH PRN (22:15)
[2020-01-20] MEDS ORDERED: Sodium Chloride 0.9% 10 ML SDV IV PRN (22:15)
[2020-01-20] MEDS ORDERED: Sodium Chloride 0.9% 2.5 ML Syringe FLUSH PRN (22:15)
[2020-01-20 22:51] LABS: CARBON DIOXIDE,CO2 25.8 mmol/L (21.0-32.0); POTASSIUM,K 3.6 mmol/L (3.5-5.1)
--- NOTE | 2020-01-20 23:02 | CR ---
Indication: Pain and swelling Technique: Three views right ankle Comparison: None Findings: Bones: Alignment is normal. No fractures or bone lesions. Joint spaces: Unremarkable. Soft tissues: Diffuse soft tissue swelling around the ankle joint. Impression: Diffuse soft tissue swelling around the ankle joint. No acute fracture or subluxation. Dictated by Lali Barrios MD @ Jan 20 2020 10:59PM Signed by Dr. Lali Barrios @ Jan 20 2020 11:01PM
[2020-01-20] MEDS ORDERED: ceFAZolin 1 GM in Premix Bag 1 BAG IV ONE (23:11)
[2020-01-20] MEDS ORDERED: Acetaminophen/oxyCODONE 325-5 MG Tab PO ONE (23:31)
[2020-01-20] MEDS ORDERED: LORazepam 2 MG/ML SDV IVPUSH PRN (23:36)
--- NOTE | 2020-01-21 04:47 | EDM.PDOC ---
ED HPI GENERAL MEDICAL PROBLEM - General Chief Complaint: Skin Complaint Stated Complaint: SWOLLEN RIGHT LEFT Time Seen by Provider: 01/20/20 20:52 Source of Information: Reports: Patient History Limitations: Reports: No Limitations - History of Present Illness INITIAL COMMENTS - FREE TEXT/NARRATIVE: 59-year-old female with a past medical history of alcohol abuse, dementia, psoriasis presenting with right ankle pain. 2-week history of redness, erythema , and swelling to the right ankle. Symptoms worsening over the past 1 to 2 days. Concerned about infection. Denies any fever, chills, nausea, vomiting. No history of diabetes. right ankle and foot Pain Score (Numeric/FACES): 7 - Related Data Allergies Allergy/AdvReac Type Severity Reaction Status Date / Time No Known Allergies Allergy Verified 01/21/20 00:39 Home Meds: Home Meds Escitalopram Oxalate [Lexapro] 50 mg PO DAILY 11/14/18 [History] Past Medical History - Past Health History Medical/Surgical History: Denies Medical/Surgical History Cardiovascular History: Reports: High Cholesterol, Hypertension Other Cardiovascular History: enlarged artery in heart Gastrointestinal History: Reports: Other (See Below) Other Gastrointestinal History: large abdominal hernia 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: Musculoskeletal History: Reports: Arthritis Neurological History: Reports: Other (See Below) Other Neuro History: confusion at times Psychiatric History: Reports: Addiction, Anxiety, Depression Endocrine/Metabolic History: Reports: Hypothyroidism Dermatologic History: Reports: Eczema, Psoriasis Other Dermatologic History: unknown skin condition - Infectious Disease History Infectious Disease History: Reports: None - Past Surgical History Respiratory Surgical History: Reports: None Social & Family History - Family History Family Medical History: Noncontributory - Tobacco Use Smoking Status *Q: Current Every Day Smoker Years of Tobacco use: 30 Packs/Tins Daily: 8 Second Hand Smoke Exposure: Yes - Caffeine Use Caffeine Use: Reports: Coffee, Soda - Recreational Drug Use Recreational Drug Use: No ED ROS GENERAL - Review of Systems Review Of Systems: See Below Constitutional: Denies: Fever, Chills HEENT: Reports: No Symptoms Respiratory: Denies: Shortness of Breath Cardiovascular: Denies: Chest Pain Endocrine: Reports: No Symptoms GI/Abdominal: Denies: Nausea, Vomiting : Reports: No Symptoms Musculoskeletal: Reports: No Symptoms Skin: Reports: Lesions Neurological: Reports: No Symptoms Psychiatric: Reports: No Symptoms ED EXAM, SKIN/RASH Exam: See Below Text/Narrative:: Vital signs reviewed. Nursing notes reviewed. Constitutional: Awake, alert, non-distressed. Head: Normocephalic, atraumatic. Eyes: EOMI, conjunctiva normal, no discharge, no scleral icterus. Ears, Nose, Throat: External ears and nose normal, moist oral mucosa. Cardiovascular: 2+ right DP and PT pulse, capillary refill less than 2 seconds. Pulmonary: normal work of breathing, no accessory muscle use. Integumentary: Appropriate color for ethnicity, warm, dry, no pallor or jaundice , no rash. Right ankle with erythema, induration, and tenderness concerning for cellulitis. Neurologic: Alert, answering questions appropriately, normal speech, no facial droop, moving all extremities well. Psychiatric: Appropriate mood and affect, normal thought process. Course - Vital Signs Text/Narrative:: Afebrile, hemodynamically stable on arrival. Looks nontoxic. IV access established and labs were sent. CBC shows leukocytosis. Normal lactate. Mild hyponatremia. Normal renal function. IV vancomycin and Ancef. X-rays of the right ankle demonstrate soft tissue swelling. Low suspicion for DVT given that only the ankle is involved. Given degree of cellulitis, would favor admission to observation status given age and comorbidities. I spoke with Dr. Mora the hospitalist who agrees to admit. Last Recorded V/S: Last Vital Signs Temp 36.5 C 01/21/20 04:04 Pulse 62 01/21/20 04:04 Resp 16 01/21/20 04:04 BP 106/53 L 01/21/20 04:04 Pulse Ox 95 01/21/20 04:04 - Orders/Labs/Meds Orders: Active Orders 24 hr Category Date Time Status Pulse Oximetry [RC] ASDIRECTED Care 01/20/20 22:15 Active Sodium Chloride 0.9% [Normal Saline] Med 01/20/20 22:15 Active 10 ml IV ASDIRECTED PRN Sodium Chloride 0.9% [Saline Flush] Med 01/20/20 22:15 Active 10 ml FLUSH ASDIRECTED PRN Sodium Chloride 0.9% [Saline Flush] Med 01/20/20 22:15 Active 2.5 ml FLUSH ASDIRECTED PRN Peripheral IV Insertion Adult [OM.PC] Stat Oth 01/20/20 22:15 Ordered Medication Orders Vancomycin HCl 1 gm/ Sodium (Chloride) 250 mls @ 166 mls/hr IV Q12H [facility] Last Admin: 01/21/20 00:52 Dose: 166 mls/hr Lorazepam (Ativan) 0 mg IVPUSH Q4H PRN; Protocol PRN Reason: Anxiety Sodium Chloride (Saline Flush) 10 ml FLUSH ASDIRECTED PRN PRN Reason: Keep Vein Open Last Admin: 01/20/20 23:18 Dose: 10 ml Sodium Chloride (Saline Flush) 2.5 ml FLUSH ASDIRECTED PRN PRN Reason: Keep Vein Open Last Admin: 01/20/20 23:18 Dose: 2.5 ml Sodium Chloride (Normal Saline) 10 ml IV ASDIRECTED PRN PRN Reason: IV Use Last Admin: 01/20/20 23:18 Dose: 10 ml Vancomycin HCl (Pharmacy To Dose - Vancomycin) 1 dose .XX ASDIRECTED [facility] Labs: Laboratory Tests 01/20/20 01/20/20 01/20/20 Range/Units 22:24 22:24 22:24 WBC 13.14 H (4.0-11.0) K/uL RBC 3.60 L (4.30-5.90) M/uL Hgb 12.4 (12.0-16.0) g/dL Hct 36.8 (36.0-46.0) % MCV 102.2 H (80.0-98.0) fL MCH 34.4 H (27.0-32.0) pg MCHC 33.7 (31.0-37.0) g/dL RDW Std Deviation 48.3 (28.0-62.0) fl RDW Coeff of Amrik 13 (11.0-15.0) % Plt Count 283 (150-400) K/uL MPV 10.40 (7.40-12.00) fL Neut % (Auto) 73.9 (48.0-80.0) % Lymph % (Auto) 15.4 L (16.0-40.0) % [place] % (Auto) 9.2 (0.0-15.0) % Eos % (Auto) 1.3 (0.0-7.0) % Baso % (Auto) 0.2 (0.0-1.5) % Neut # (Auto) 9.7 H (1.4-5.7) K/uL Lymph # (Auto) 2.0 (0.6-2.4) K/uL [place] # (Auto) 1.2 H (0.0-0.8) K/uL Eos # (Auto) 0.2 (0.0-0.7) K/uL Baso # (Auto) 0.0 (0.0-0.1) K/uL Nucleated RBC % 0.0 /100WBC Nucleated RBCs # 0 K/uL Lactate 1.0 (0.20-2.00) mmol/L Sodium 133 L (136-145) mmol/L Potassium 3.6 (3.5-5.1) mmol/L Chloride 95 L (98-107) mmol/L Carbon Dioxide 25.8 (21.0-32.0) mmol/L BUN 15 (7.0-18.0) mg/dL Creatinine 1.0 (0.6-1.0) mg/dL Est Cr Clr Drug Dosing 56.00 mL/min Estimated GFR (MDRD) 56.6 ml/min Glucose 94 (74-106) mg/dL Calcium 9.5 (8.5-10.1) mg/dL Total Bilirubin 0.5 (0.2-1.0) mg/dL AST 27 (15-37) IU/L ALT 18 (14-63) IU/L Alkaline Phosphatase 82 (46-116) U/L Total Protein 8.1 (6.4-8.2) g/dL Albumin 3.5 (3.4-5.0) g/dL Globulin 4.6 H (2.6-4.0) g/dL Albumin/Globulin Ratio 0.8 L (0.9-1.6) Meds: Medications Generic Name Dose Route Start Last Admin Trade Name Freq PRN Reason Stop Dose Admin Vancomycin HCl 1 gm/ Sodium 250 mls @ 166 mls/hr 01/21/20 00:00 01/21/20 00: 52 Chloride IV 166 mls/hr Q12H [facility] Administration Lorazepam 0 mg 01/20/20 23:36 Ativan IVPUSH Q4H PRN Anxiety Protocol Sodium Chloride 10 ml 01/20/20 22:15 01/20/20 23:18 Saline Flush FLUSH 10 ml ASDIRECTED PRN Administration Keep Vein Open Sodium Chloride 2.5 ml 01/20/20 22:15 01/20/20 23:18 Saline Flush FLUSH 2.5 ml ASDIRECTED PRN Administration Keep Vein Open Sodium Chloride 10 ml 01/20/20 22:15 01/20/20 23:18 Normal Saline IV 10 ml ASDIRECTED PRN Administration IV Use Vancomycin HCl 1 dose 01/20/20 23:45 Pharmacy To Dose - Vancomycin .XX ASDIRECTED [facility] Discontinued Medications Generic Name Dose Route Start Last Admin Trade Name Freq PRN Reason Stop Dose Admin Cefazolin Sodium/Dextrose 1 gm 50 mls @ 100 mls/hr 01/20/20 23:11 01/20/20 23 :17 / Premix IV 01/20/20 23:40 100 mls/hr ONETIME ONE Administration Oxycodone/Acetaminophen 2 tab 01/20/20 23:31 01/20/20 23:36 Percocet 325-5 Mg PO 01/20/20 23:32 2 tab ONETIME ONE Administration Departure - Departure Time of Disposition: 23:14 Disposition: Refer to Observation Clinical Impression: Cellulitis of right lower extremity - Discharge Information Sepsis Event Note (ED) - Evaluation Sepsis Screening Result: No Definite Risk - Focused Exam Vital Signs: Vital Signs Temp Pulse Resp BP Pulse Ox 01/20/20 21:56 36.2 C 63 18 138/76 98 - My Orders Last 24 Hours: My Active Orders 01/20/20 22:15 Pulse Oximetry [RC] ASDIRECTED Sodium Chloride 0.9% [Normal Saline] 10 ml IV ASDIRECTED PRN Sodium Chloride 0.9% [Saline Flush] 10 ml FLUSH ASDIRECTED PRN Sodium Chloride 0.9% [Saline Flush] 2.5 ml FLUSH ASDIRECTED PRN Peripheral IV Insertion Adult [OM.PC] Stat - Assessment/Plan Last 24 Hours: My Active Orders 01/20/20 22:15 Pulse Oximetry [RC] ASDIRECTED Sodium Chloride 0.9% [Normal Saline] 10 ml IV ASDIRECTED PRN Sodium Chloride 0.9% [Saline Flush] 10 ml FLUSH ASDIRECTED PRN Sodium Chloride 0.9% [Saline Flush] 2.5 ml FLUSH ASDIRECTED PRN Peripheral IV Insertion Adult [OM.PC] Stat
[2020-01-21 06:22] LABS: POTASSIUM,K 3.4 mmol/L (3.5-5.1)
--- NOTE | 2020-01-21 09:02 | PCM.HP.2 ---
H&P History of Present Illness - General Date of Service: 01/21/20 Admit Problem/Dx: Admission Diagnosis/Problem Admission Diagnosis/Problem Cellulitis and abscess of ankle - History of Present Illness Initial Comments - Free Text/Narative: 59 yo female with pmh of hypothyrodisim, hypertension, anxiety, and depression who presents to the ER with complaint of redness and swelling over her right ankle and leg for the past week. Patient denies any joint pain and is able to walk and move ankle without difficulty. X-ray of ankle shows no fracture but soft tissue edema. Patient was given ancef in the ED for cellulitis of the right leg. Patient reports a history of alcoholism but reports has cut back her alcohol intake to two beers a week for the last two years. right ankle and foot Pain Score (Numeric/FACES): 7 - Related Data Allergies/Adverse Reactions: Allergies Allergy/AdvReac Type Severity Reaction Status Date / Time No Known Allergies Allergy Verified 01/21/20 00:39 Home Medications: Home Meds Escitalopram Oxalate [Lexapro] 20 mg PO DAILY 11/14/18 [History] Levothyroxine 112 mcg PO ACBREAKFAST 01/21/20 [History] Metoprolol Succinate 100 mg PO DAILY 01/21/20 [History] atorvaSTATin Calcium [Atorvastatin Calcium] 40 mg PO DAILY 01/21/20 [History] hydrOXYzine HCL [Hydroxyzine HCl] 25 mg PO DAILY 01/21/20 [History] Past Medical History - Past Health History Medical/Surgical History: Denies Medical/Surgical History Cardiovascular History: Reports: High Cholesterol, Hypertension Other Cardiovascular History: enlarged artery in heart Gastrointestinal History: Reports: Other (See Below) Other Gastrointestinal History: large abdominal hernia 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: Musculoskeletal History: Reports: Arthritis Neurological History: Reports: Other (See Below) Other Neuro History: confusion at times Psychiatric History: Reports: Addiction, Anxiety, Depression Endocrine/Metabolic History: Reports: Hypothyroidism Dermatologic History: Reports: Eczema, Psoriasis Other Dermatologic History: unknown skin condition - Infectious Disease History Infectious Disease History: Reports: None - Past Surgical History Respiratory Surgical History: Reports: None Social & Family History - Family History Family Medical History: Noncontributory - Tobacco Use Smoking Status *Q: Current Every Day Smoker Years of Tobacco use: 30 Packs/Tins Daily: 8 Second Hand Smoke Exposure: Yes - Caffeine Use Caffeine Use: Reports: Coffee, Soda - Recreational Drug Use Recreational Drug Use: No H&P Review of Systems - Review of Systems: Review Of Systems: Comprehensive ROS is negative, except as noted in HPI. Exam - Exam Exam: See Below - Vital Signs Vital Signs: Last Vital Signs Temp 36.5 C 01/21/20 04:04 Pulse 62 01/21/20 04:04 Resp 16 01/21/20 04:04 BP 106/53 L 01/21/20 04:04 Pulse Ox 95 01/21/20 04:04 Weight: 58.876 kg - Exam General: Alert, Oriented HEENT: Mucosa Moist & [place] Neck: Supple Lungs: Clear to Auscultation, Normal Respiratory Effort Cardiovascular: Regular Rate, Regular Rhythm GI/Abdominal Exam: Normal Bowel Sounds, Soft, Non-Tender Extremities: Other (mild edema of right ankle, full range of motion of right ankle, no joint effusion noted, erythema around ankle and streaking up posterior calf) - Patient Data Lab Results Last 24 hrs: Laboratory Results - last 24 hr 01/20/20 01/20/20 01/20/20 Range/Units 22:24 22:24 22:24 WBC 13.14 H (4.0-11.0) K/uL RBC 3.60 L (4.30-5.90) M/uL Hgb 12.4 (12.0-16.0) g/dL Hct 36.8 (36.0-46.0) % MCV 102.2 H (80.0-98.0) fL MCH 34.4 H (27.0-32.0) pg MCHC 33.7 (31.0-37.0) g/dL RDW Std Deviation 48.3 (28.0-62.0) fl RDW Coeff of Amrik 13 (11.0-15.0) % Plt Count 283 (150-400) K/uL MPV 10.40 (7.40-12.00) fL Neut % (Auto) 73.9 (48.0-80.0) % Lymph % (Auto) 15.4 L (16.0-40.0) % [place] % (Auto) 9.2 (0.0-15.0) % Eos % (Auto) 1.3 (0.0-7.0) % Baso % (Auto) 0.2 (0.0-1.5) % Neut # (Auto) 9.7 H (1.4-5.7) K/uL Lymph # (Auto) 2.0 (0.6-2.4) K/uL [place] # (Auto) 1.2 H (0.0-0.8) K/uL Eos # (Auto) 0.2 (0.0-0.7) K/uL Baso # (Auto) 0.0 (0.0-0.1) K/uL Nucleated RBC % 0.0 /100WBC Nucleated RBCs # 0 K/uL Lactate 1.0 (0.20-2.00) mmol/L Sodium 133 L (136-145) mmol/L Potassium 3.6 (3.5-5.1) mmol/L Chloride 95 L (98-107) mmol/L Carbon Dioxide 25.8 (21.0-32.0) mmol/L BUN 15 (7.0-18.0) mg/dL Creatinine 1.0 (0.6-1.0) mg/dL Est Cr Clr Drug Dosing 56.00 mL/min Estimated GFR (MDRD) 56.6 ml/min Glucose 94 (74-106) mg/dL Calcium 9.5 (8.5-10.1) mg/dL Total Bilirubin 0.5 (0.2-1.0) mg/dL AST 27 (15-37) IU/L ALT 18 (14-63) IU/L Alkaline Phosphatase 82 (46-116) U/L Total Protein 8.1 (6.4-8.2) g/dL Albumin 3.5 (3.4-5.0) g/dL Globulin 4.6 H (2.6-4.0) g/dL Albumin/Globulin Ratio 0.8 L (0.9-1.6) 01/21/20 01/21/20 Range/Units 05:55 05:55 WBC 12.65 H (4.0-11.0) K/uL RBC 3.47 L (4.30-5.90) M/uL Hgb 11.7 L (12.0-16.0) g/dL Hct 35.5 L (36.0-46.0) % MCV 102.3 H (80.0-98.0) fL MCH 33.7 H (27.0-32.0) pg MCHC 33.0 (31.0-37.0) g/dL RDW Std Deviation 48.0 (28.0-62.0) fl RDW Coeff of Amrik 13 (11.0-15.0) % Plt Count 285 (150-400) K/uL MPV 10.50 (7.40-12.00) fL Neut % (Auto) 69.9 (48.0-80.0) % Lymph % (Auto) 18.3 (16.0-40.0) % [place] % (Auto) 9.3 (0.0-15.0) % Eos % (Auto) 2.2 (0.0-7.0) % Baso % (Auto) 0.3 (0.0-1.5) % Neut # (Auto) 8.8 H (1.4-5.7) K/uL Lymph # (Auto) 2.3 (0.6-2.4) K/uL [place] # (Auto) 1.2 H (0.0-0.8) K/uL Eos # (Auto) 0.3 (0.0-0.7) K/uL Baso # (Auto) 0.0 (0.0-0.1) K/uL Nucleated RBC % 0.0 /100WBC Nucleated RBCs # 0 K/uL Lactate (0.20-2.00) mmol/L Sodium 134 L (136-145) mmol/L Potassium 3.4 L (3.5-5.1) mmol/L Chloride 97 L (98-107) mmol/L Carbon Dioxide 27.0 (21.0-32.0) mmol/L BUN 14 (7.0-18.0) mg/dL Creatinine 1.1 H (0.6-1.0) mg/dL Est Cr Clr Drug Dosing 50.55 mL/min Estimated GFR (MDRD) 50.7 ml/min Glucose 96 (74-106) mg/dL Calcium 8.7 (8.5-10.1) mg/dL Total Bilirubin (0.2-1.0) mg/dL AST (15-37) IU/L ALT (14-63) IU/L Alkaline Phosphatase (46-116) U/L Total Protein (6.4-8.2) g/dL Albumin (3.4-5.0) g/dL Globulin (2.6-4.0) g/dL Albumin/Globulin Ratio (0.9-1.6) Result Diagrams: 01/22/20 06:00 01/22/20 06:00 Sepsis Event Note - Evaluation Sepsis Screening Result: No Definite Risk - Focused Exam Vital Signs: Vital Signs Temp Pulse Pulse Resp BP BP Pulse Ox 01/21/20 04:04 36.5 C 62 16 106/53 L 95 01/21/20 00:00 36.7 C 60 16 131/68 98 01/20/20 21:56 36.2 C 63 18 138/76 98 Date Exam was Performed: 01/22/20 Time Exam was Performed: 20:03 Problem List Initiated/Reviewed/Updated: Yes Orders Last 24hrs: Active Orders 24 hr Category Date Time Status Patient Status [ADT] Stat ADT 01/20/20 23:14 Active CIWAA Assessment [RC] Q4H Care 01/20/20 23:34 Active Pulse Oximetry [RC] ASDIRECTED Care 01/20/20 22:15 Active Regular Diet [DIET] Diet 01/21/20 Breakfast Active VANCOMYCIN TROUGH [CHEM] Timed Lab 01/22/20 11:00 Ordered LORazepam [Ativan] Med 01/20/20 23:36 Active See Protocol IVPUSH Q4H PRN Pharmacy to Dose - Vancomycin Med 01/20/20 23:45 Active 1 dose .XX ASDIRECTED Sodium Chloride 0.9% [Normal Saline] Med 01/20/20 22:15 Active 10 ml IV ASDIRECTED PRN Sodium Chloride 0.9% [Saline Flush] Med 01/20/20 22:15 Active 10 ml FLUSH ASDIRECTED PRN Sodium Chloride 0.9% [Saline Flush] Med 01/20/20 22:15 Active 2.5 ml FLUSH ASDIRECTED PRN Vancomycin [Vancocin] 1 gm Med 01/21/20 00:00 Active Sodium Chloride 0.9% [Normal Saline (AdvBag)] 250 ml IV Q12H Peripheral IV Insertion Adult [OM.PC] Stat Oth 01/20/20 22:15 Ordered Medication Orders Vancomycin HCl 1 gm/ Sodium (Chloride) 250 mls @ 166 mls/hr IV Q12H [facility] Last Admin: 01/21/20 00:52 Dose: 166 mls/hr Lorazepam (Ativan) 0 mg IVPUSH Q4H PRN; Protocol PRN Reason: Anxiety Sodium Chloride (Saline Flush) 10 ml FLUSH ASDIRECTED PRN PRN Reason: Keep Vein Open Last Admin: 01/20/20 23:18 Dose: 10 ml Sodium Chloride (Saline Flush) 2.5 ml FLUSH ASDIRECTED PRN PRN Reason: Keep Vein Open Last Admin: 01/20/20 23:18 Dose: 2.5 ml Sodium Chloride (Normal Saline) 10 ml IV ASDIRECTED PRN PRN Reason: IV Use Last Admin: 01/20/20 23:18 Dose: 10 ml Vancomycin HCl (Pharmacy To Dose - Vancomycin) 1 dose .XX ASDIRECTED [facility] Assessment/Plan Comment:: 59 yo female admitted for right leg cellulitis. We will treat with vancomycin.
[2020-01-21] MEDS ORDERED: Ibuprofen 400 MG Tab PO PRN (10:24)
[2020-01-21] MEDS ORDERED: Acetaminophen 325 MG Tab PO PRN (10:24)
[2020-01-21] MEDS ORDERED: Ondansetron 4 MG Tab.DIS PO PRN (10:24)
[2020-01-21] MEDS: Heparin Sodium 5,000 Units/ML Vial SUBCUT SCH ×2 (10:46→19:30)
[2020-01-21] MEDS: oxyCODONE 5 MG Tab PO PRN ×2 (10:47→19:31)
--- NOTE | 2020-01-21 11:59 | US ---
Right lower extremity deep venous ultrasound: Duplex and color Doppler evaluation was obtained of the right common femoral, superficial femoral, popliteal, peroneal and posterior tibial veins. Findings: Areas of subcutaneous edema are seen within the right lower extremity. Edema is most prominent below the knee. Normal compression and Doppler blood flow is seen. Impression: 1. Subcutaneous edema. 2. No evidence of deep venous thrombosis is seen within the right lower extremity. Diagnostic code #2 Study was dictated in MDT
[2020-01-22] MEDS: Heparin Sodium 5,000 Units/ML Vial SUBCUT SCH ×3 (02:53→18:37)
[2020-01-22] MEDS: oxyCODONE 5 MG Tab PO PRN ×2 (06:19→19:31)
[2020-01-22 06:58] LABS: CARBON DIOXIDE,CO2 26.9 mmol/L (21.0-32.0); POTASSIUM,K 3.6 mmol/L (3.5-5.1)
--- NOTE | 2020-01-22 08:49 | PCM.PN ---
- General Info Date of Service: 01/22/20 Subjective Update: Bedside: c.o of persistent pain especially w. standing for long periods of time in her right foot/ankle ; superficailly; improves while elevating limb. Chronic pruritus; multiple excoriations noted over both lower extremities Functional Status: Reports: Pain Controlled - Review of Systems General: Denies: Fever, Weakness HEENT: Reports: No Symptoms Pulmonary: Reports: No Symptoms Cardiovascular: Reports: No Symptoms Gastrointestinal: Reports: No Symptoms Genitourinary: Reports: No Symptoms Musculoskeletal: Reports: Leg Pain, Foot Pain Skin: Reports: Other (cellulitis ) Neurological: Reports: No Symptoms Psychiatric: Reports: No Symptoms - Patient Data Vitals - Most Recent: Last Vital Signs Temp 98.9 F 01/22/20 07:33 Pulse 52 L 01/22/20 07:33 Resp 14 01/22/20 07:33 BP 112/67 01/22/20 07:33 Pulse Ox 95 01/22/20 07:33 Weight - Most Recent: 58.876 kg I&O - Last 24 Hours: Intake & Output 01/21/20 01/22/20 01/22/20 22:59 06:59 14:59 Intake Total 560 850 Output Total 250 400 Balance 310 450 Lab Results Last 24 Hours: Laboratory Results - last 24 hr 01/22/20 01/22/20 Range/Units 06:00 06:00 WBC 9.46 (4.0-11.0) K/uL RBC 3.33 L (4.30-5.90) M/uL Hgb 11.0 L (12.0-16.0) g/dL Hct 34.1 L (36.0-46.0) % MCV 102.4 H (80.0-98.0) fL MCH 33.0 H (27.0-32.0) pg MCHC 32.3 (31.0-37.0) g/dL RDW Std Deviation 48.1 (28.0-62.0) fl RDW Coeff of Amrik 13 (11.0-15.0) % Plt Count 288 (150-400) K/uL MPV 10.50 (7.40-12.00) fL Neut % (Auto) 64.5 (48.0-80.0) % Lymph % (Auto) 24.2 (16.0-40.0) % [place] % (Auto) 8.2 (0.0-15.0) % Eos % (Auto) 2.7 (0.0-7.0) % Baso % (Auto) 0.4 (0.0-1.5) % Neut # (Auto) 6.1 H (1.4-5.7) K/uL Lymph # (Auto) 2.3 (0.6-2.4) K/uL [place] # (Auto) 0.8 (0.0-0.8) K/uL Eos # (Auto) 0.3 (0.0-0.7) K/uL Baso # (Auto) 0.0 (0.0-0.1) K/uL Nucleated RBC % 0.0 /100WBC Nucleated RBCs # 0 K/uL Sodium 135 L (136-145) mmol/L Potassium 3.6 (3.5-5.1) mmol/L Chloride 99 (98-107) mmol/L Carbon Dioxide 26.9 (21.0-32.0) mmol/L BUN 13 (7.0-18.0) mg/dL Creatinine 1.0 (0.6-1.0) mg/dL Est Cr Clr Drug Dosing 55.61 mL/min Estimated GFR (MDRD) 56.6 ml/min Glucose 85 (74-106) mg/dL Calcium 8.6 (8.5-10.1) mg/dL TSH 3rd Generation 37.86 H (0.36-3.74) uIU/mL Med Orders - Current: Current Medications Acetaminophen (Tylenol) 650 mg PO Q4H PRN PRN Reason: Pain (Mild 1-3)/fever Heparin Sodium (Porcine) (Heparin Sodium) 5,000 units SUBCUT Q8H [facility] Last Admin: 01/22/20 02:53 Dose: 5,000 units Vancomycin HCl 1 gm/ Sodium (Chloride) 250 mls @ 166 mls/hr IV Q12H [facility] Last Admin: 01/21/20 23:44 Dose: 166 mls/hr Ibuprofen (Motrin) 400 mg PO Q6H PRN PRN Reason: Pain (mild 1-3) Last Admin: 01/21/20 23:48 Dose: 400 mg Lorazepam (Ativan) 0 mg IVPUSH Q4H PRN; Protocol PRN Reason: Anxiety Ondansetron HCl (Zofran Odt) 4 mg PO Q4H PRN PRN Reason: nausea, able to take PO Oxycodone HCl (Oxycodone) 5 mg PO Q6H PRN PRN Reason: Pain (moderate 4-6) Last Admin: 01/22/20 06:19 Dose: 5 mg Sodium Chloride (Saline Flush) 10 ml FLUSH ASDIRECTED PRN PRN Reason: Keep Vein Open Last Admin: 01/20/20 23:18 Dose: 10 ml Sodium Chloride (Saline Flush) 2.5 ml FLUSH ASDIRECTED PRN PRN Reason: Keep Vein Open Last Admin: 01/20/20 23:18 Dose: 2.5 ml Sodium Chloride (Normal Saline) 10 ml IV ASDIRECTED PRN PRN Reason: IV Use Last Admin: 01/20/20 23:18 Dose: 10 ml Vancomycin HCl (Pharmacy To Dose - Vancomycin) 1 dose .XX ASDIRECTED [facility] Discontinued Medications Cefazolin Sodium/Dextrose 1 gm (/ Premix) 50 mls @ 100 mls/hr IV ONETIME ONE Stop: 01/20/20 23:40 Last Admin: 01/20/20 23:17 Dose: 100 mls/hr Oxycodone/Acetaminophen (Percocet 325-5 Mg) 2 tab PO ONETIME ONE Stop: 01/20/20 23:32 Last Admin: 01/20/20 23:36 Dose: 2 tab - Exam General: Alert, Oriented HEENT: EOMI Neck: Supple Lungs: Clear to Auscultation, Normal Respiratory Effort Cardiovascular: Regular Rate, Regular Rhythm GI/Abdominal Exam: Soft, Other (+umbilical hernia) Back Exam: Normal Inspection Skin: Other (right lower extrmeity : doraspect of foot, right anle and up 2/3 of right gutierrez erythema , +1 edema and mild tenderness; surgical marking in-situ ; ) Neurological: No New Focal Deficit Psy/Mental Status: Alert, Normal Affect Sepsis Event Note - Evaluation Sepsis Screening Result: No Definite Risk - Focused Exam Vital Signs: Vital Signs Temp Pulse Resp BP Pulse Ox 01/22/20 07:33 98.9 F 52 L 14 112/67 95 01/22/20 04:17 97.7 F 56 L 15 110/58 L 94 L 01/21/20 23:36 98.5 F 55 L 16 110/71 95 Date Exam was Performed: 01/22/20 Time Exam was Performed: 10:17 - Problem List Review Problem List Initiated/Reviewed/Updated: Yes - Plan Plan:: Assessment: 1. Right leg cellulitis 2. Uncontrolled hypothyroidism 3. Medical non-compliance 4. Chronic pruritus Plan 1. Cellulitis: continue Vancomycin ; will adjust if necessary w. blood cultures and or clinical picture changes. Will also check Uric acid levels; low suspicion for gout but skin overlying ankle joint involved. Venous Doppler negative. X-ray negative for acute fx.dislocation 2. Hypothyroidism: Elevated TSH; non-compliant w. medications ; restart Levothyroxine. Recheck TSH in outpatient setting. 3. Home meds: unsure of when last dose of numerous medications; will restart medications as necessary. 4. Macrocytic anemia: ordered B12 and folate; will treat accordingly
[2020-01-22] MEDS: hydrOXYzine HCl 25 MG Tab PO SCH (10:32)
[2020-01-22] MEDS: Escitalopram 10 MG Tab PO SCH (16:08)
[2020-01-23] MEDS: Heparin Sodium 5,000 Units/ML Vial SUBCUT SCH ×2 (02:24→10:27)
[2020-01-23] MEDS: oxyCODONE 5 MG Tab PO PRN ×2 (02:33→08:43)
[2020-01-23 06:36] LABS: CARBON DIOXIDE,CO2 26.1 mmol/L (21.0-32.0); POTASSIUM,K 3.7 mmol/L (3.5-5.1)
[2020-01-23] MEDS ORDERED: Levothyroxine 112 MCG Tab PO SCH (07:30)
[2020-01-23] MEDS: hydrOXYzine HCl 25 MG Tab PO SCH (08:44)
[2020-01-23] MEDS: Escitalopram 10 MG Tab PO SCH (08:44)
--- NOTE | 2020-01-23 11:41 | PCM.DCSUM1 ---
Discharge Summary - Hospital Course Free Text/Narrative:: 59 y. o female w. PMH of chronic pruritus/anxiety, hypothyroidism w. elevated TSH , medical non-compliance ; presented with increasing redness and swelling of right lower extremity. Redness and swelling began at right heel and tracked up posteriorly to just distal of knee joint. pt did not have any fevers, chills and or BA. Elevated TSH was noted and pt. was restarted on her Levothyroxine ( endorsed not taking this medication.) pt was admitted for cellulins and started on Vancomycin. throughout stay pt. improved and it was noted rash potentially started from pt. history of chronic scratching. Was advised to follow up with [facility]/ dermatology regarding this issue but pt has not gone to either provider. HAs been using Atarax PRN for this problem. Multiple excoriations noted over site of cellulins. Lexapro continued; pt. noted using her daughters prescription these previous couple of months. Day of discharge: improvement of rednes sand swelling. discussed chronic pruritus (labs from previous visits suggest liver , hepatitis workup); pt. otherwise stable and discharged on additional Bactrim ds BID x 7-days. Since pain was over right ankle ; uric acid ordered: WNL Sent home with oxycodone with strict precautions reading abuse potential and keeping prescriptions away from others. pt understood. PCP appointment set up. DC in stable condition. - Discharge Data Discharge Date: 01/23/20 Discharge Disposition: Home, Self-Care 01 Condition: Stable - Referral to Home Health Primary Care Physician: PCP None - Discharge Plan Prescriptions/Med Rec: Escitalopram [Lexapro] 20 mg PO DAILY 30 Days #30 tab Hydrocodone/Acetaminophen [[place] 5-325 Tablet] 1 each PO BID 5 Days #10 tablet Sulfamethoxazole/Trimethoprim [Bactrim Ds Tablet] 1 each PO BID 4 Days #14 tablet Home Medications: Home Meds Metoprolol Succinate 100 mg PO DAILY 01/21/20 [History] atorvaSTATin Calcium [Atorvastatin Calcium] 40 mg PO DAILY 01/21/20 [History] Escitalopram [Lexapro] 20 mg PO DAILY 30 Days #30 tab 01/23/20 [Rx] Hydrocodone/Acetaminophen [[place] 5-325 Tablet] 1 each PO BID 5 Days #10 tablet 01/23/20 [Rx] Levothyroxine 112 mcg PO ACBREAKFAST 30 Days #30 tab 01/23/20 [Rx] Metoprolol Succinate 100 mg PO DAILY 01/23/20 [History] Sulfamethoxazole/Trimethoprim [Bactrim Ds Tablet] 1 each PO BID 4 Days #14 tablet 01/23/20 [Rx] hydrOXYzine HCL [Hydroxyzine HCl] 25 mg PO DAILY 30 Days #30 01/23/20 [Rx] Patient Handouts: Acetaminophen; Hydrocodone tablets or capsules, Cellulitis, Adult, [id number], Sulfamethoxazole; Trimethoprim, SMX-TMP tablets Referrals: Ronald Palomino MD [Physician] - 02/01/20 2:00 pm (Arrive 15 minutes early with a photo ID, insurance card and a mask if you have one) - Discharge Summary/Plan Comment DC Time >30 min.: No - Patient Data Vitals - Most Recent: Last Vital Signs Temp 98.8 F 01/23/20 07:10 Pulse 62 01/23/20 07:10 Resp 15 01/23/20 07:10 BP 154/73 H 01/23/20 07:10 Pulse Ox 94 L 01/23/20 07:10 Weight - Most Recent: 58.876 kg I&O - Last 24 hours: Intake & Output 01/22/20 01/23/20 01/23/20 22:59 06:59 14:59 Intake Total 880 420 Output Total 300 500 Balance 580 -80 Lab Results - Last 24 hrs: Laboratory Results - last 24 hr 01/22/20 01/23/20 01/23/20 Range/Units 11:15 05:53 05:53 WBC 9.53 (4.0-11.0) K/uL RBC 3.28 L (4.30-5.90) M/uL Hgb 11.0 L (12.0-16.0) g/dL Hct 33.4 L (36.0-46.0) % MCV 101.8 H (80.0-98.0) fL MCH 33.5 H (27.0-32.0) pg MCHC 32.9 (31.0-37.0) g/dL RDW Std Deviation 48.1 (28.0-62.0) fl RDW Coeff of Amrik 13 (11.0-15.0) % Plt Count 311 (150-400) K/uL MPV 10.40 (7.40-12.00) fL Neut % (Auto) 60.7 (48.0-80.0) % Lymph % (Auto) 27.0 (16.0-40.0) % [place] % (Auto) 8.5 (0.0-15.0) % Eos % (Auto) 3.3 (0.0-7.0) % Baso % (Auto) 0.5 (0.0-1.5) % Neut # (Auto) 5.8 H (1.4-5.7) K/uL Lymph # (Auto) 2.6 H (0.6-2.4) K/uL [place] # (Auto) 0.8 (0.0-0.8) K/uL Eos # (Auto) 0.3 (0.0-0.7) K/uL Baso # (Auto) 0.1 (0.0-0.1) K/uL Nucleated RBC % 0.0 /100WBC Nucleated RBCs # 0 K/uL Sodium 134 L (136-145) mmol/L Potassium 3.7 (3.5-5.1) mmol/L Chloride 99 (98-107) mmol/L Carbon Dioxide 26.1 (21.0-32.0) mmol/L BUN 10 (7.0-18.0) mg/dL Creatinine 1.0 (0.6-1.0) mg/dL Est Cr Clr Drug Dosing 55.61 mL/min Estimated GFR (MDRD) 56.6 ml/min Glucose 85 (74-106) mg/dL Calcium 8.5 (8.5-10.1) mg/dL Total Bilirubin 0.3 (0.2-1.0) mg/dL AST 17 (15-37) IU/L ALT 11 L (14-63) IU/L Alkaline Phosphatase 64 (46-116) U/L Total Protein 6.7 (6.4-8.2) g/dL Albumin 2.6 L (3.4-5.0) g/dL Globulin 4.1 H (2.6-4.0) g/dL Albumin/Globulin Ratio 0.6 L (0.9-1.6) Vancomycin Trough 21.3 H (5.0-10.0) ug/mL Med Orders - Current: Current Medications Acetaminophen (Tylenol) 650 mg PO Q4H PRN PRN Reason: Pain (Mild 1-3)/fever Escitalopram Oxalate (Lexapro) 20 mg PO DAILY [facility] Last Admin: 01/23/20 08:44 Dose: 20 mg Heparin Sodium (Porcine) (Heparin Sodium) 5,000 units SUBCUT Q8H [facility] Last Admin: 01/23/20 10:27 Dose: 5,000 units Hydroxyzine HCl (Atarax) 25 mg PO DAILY [facility] Last Admin: 01/23/20 08:44 Dose: 25 mg Vancomycin HCl 1 gm/ Sodium (Chloride) 250 mls @ 166 mls/hr IV Q24H [facility] Ibuprofen (Motrin) 400 mg PO Q6H PRN PRN Reason: Pain (mild 1-3) Last Admin: 01/21/20 23:48 Dose: 400 mg Levothyroxine Sodium (Levothyroxine) 112 mcg PO ACBREAKFAST [facility] Last Admin: 01/23/20 08:02 Dose: 112 mcg Lorazepam (Ativan) 0 mg IVPUSH Q4H PRN; Protocol PRN Reason: Anxiety Ondansetron HCl (Zofran Odt) 4 mg PO Q4H PRN PRN Reason: nausea, able to take PO Oxycodone HCl (Oxycodone) 5 mg PO Q6H PRN PRN Reason: Pain (moderate 4-6) Last Admin: 01/23/20 08:43 Dose: 5 mg Sodium Chloride (Saline Flush) 10 ml FLUSH ASDIRECTED PRN PRN Reason: Keep Vein Open Last Admin: 01/20/20 23:18 Dose: 10 ml Sodium Chloride (Saline Flush) 2.5 ml FLUSH ASDIRECTED PRN PRN Reason: Keep Vein Open Last Admin: 01/20/20 23:18 Dose: 2.5 ml Sodium Chloride (Normal Saline) 10 ml IV ASDIRECTED PRN PRN Reason: IV Use Last Admin: 01/20/20 23:18 Dose: 10 ml Vancomycin HCl (Pharmacy To Dose - Vancomycin) 1 dose .XX ASDIRECTED [facility] Discontinued Medications Cefazolin Sodium/Dextrose 1 gm (/ Premix) 50 mls @ 100 mls/hr IV ONETIME ONE Stop: 01/20/20 23:40 Last Admin: 01/20/20 23:17 Dose: 100 mls/hr Vancomycin HCl 1 gm/ Sodium (Chloride) 250 mls @ 166 mls/hr IV Q12H [facility] Last Admin: 01/22/20 12:36 Dose: 166 mls/hr Oxycodone/Acetaminophen (Percocet 325-5 Mg) 2 tab PO ONETIME ONE Stop: 01/20/20 23:32 Last Admin: 01/20/20 23:36 Dose: 2 tab
== END 2020-01-23 13:10 | disposition home or self-care (01) | DRG 603 ==
LOC: MW.ED 20:45 → MW.MS 23:14 → OBSVTOIN 01-22 08:52 → MW.MS 01-22 08:53
PROVIDERS: ADMIT Internal Medicine; ATTEND Internal Medicine
DX: L03.115 Cellulitis of right lower limb (principal); E03.9 Hypothyroidism, unspecified; I10 Essential (primary) hypertension; F41.9 Anxiety disorder, unspecified; F32.9 Major depressive disorder, single episode, unspecified; E78.00 Pure hypercholesterolemia, unspecified; M19.90 Unspecified osteoarthritis, unspecified site; F17.200 Nicotine dependence, unspecified, uncomplicated; L29.9 Pruritus, unspecified; D53.9 Nutritional anemia, unspecified; Z79.890 Hormone replacement therapy; Z79.899 Other long term (current) drug therapy; Z91.14 Patient's other noncompliance with medication regimen
CPT/HCPCS: 36415; 73610-26-RT; 73610-RT; 80048; 80053; 80202; 82607; 82746; 83605; 84443; 84550; 85025; 93971-26-RT; 93971-RT; 96365; 96366; 96367; 96372; 99284; 99284-25; A9270-GY; G0378; J0690; J1644; J3370; J7050

== ENCOUNTER 2020-01-23 13:29 | Emergency (ER) | payer MEDICAID ==
[2020-01-23] MEDS ORDERED: Sodium Chloride 0.9% 10 ML Syringe FLUSH PRN (13:33)
[2020-01-23] MEDS ORDERED: Sodium Chloride 0.9% 2.5 ML Syringe FLUSH PRN (13:33)
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
[2020-01-23 14:21] LABS: CARBON DIOXIDE,CO2 26.2 mmol/L (21.0-32.0); POTASSIUM,K 3.8 mmol/L (3.5-5.1)
--- NOTE | 2020-01-23 14:26 | CT ---
CT cervical spine Technique: Multiple axial sections were obtained from above C1 inferiorly to the top of T4. Reconstructed sagittal and coronal images were reviewed. Findings: Severe disc space narrowing is noted at C3-C4. Mild disc space narrowing at C4-C5. Severe disc space narrowing at C6-C7. Anterior osteophytes are seen most prominent at C3-C4, C5-C6 and lesser at C6-C7. Posterior osteophytes are seen most prominent at C6-C7 with mild at C3-C4 and C5-C6. Slightly abnormal cervical curvature is seen which is believed to be degenerative in etiology. Moderate left-sided neural foraminal stenosis is noted at C3-C4. Moderate narrowing of the right C6-C7 neural foramina is seen. Other neural foramina are fairly well patent. No fracture is appreciated. Scoliosis is also present within the spine. Impression: 1. Diffuse degenerative change as described above. Abnormal cervical curvature is seen likely degenerative in etiology. Mild scoliosis is also noted. 2. No acute fracture is appreciated. Diagnostic code #2 Study was dictated in MDT
--- NOTE | 2020-01-23 14:28 | CT ---
Head CT Technique: Multiple axial sections through the brain were obtained. Intravenous contrast was not utilized. Findings: Slight soft tissue swelling is noted within the right frontal scalp. Ventricles along with basal cisterns and sulci over the convexities are mildly prominent. Mild diminished density noted within portions of the periventricular white matter which is felt compatible with small vessel ischemic demyelination change. No other abnormal parenchymal densities are seen. No evidence of intracranial hemorrhage. No midline shift or mass effect is seen. Mild mucosal thickening seen within the right mastoid sinus. Visualized paranasal sinuses are clear. No acute calvarial finding is appreciated. Impression: 1. Mild senescent change. 2. Mucosal thickening within the right mastoid sinus which is most likely chronic. 3. Mild soft tissue swelling within the right frontal scalp. 4. No evidence of intracranial hemorrhage or other acute finding. Diagnostic code #3 Study was dictated in MDT
== END 2020-01-23 15:29 | disposition home or self-care (01) ==
LOC: MW.ED 13:29
DX: S00.03XA Contusion of scalp, initial encounter (principal); I10 Essential (primary) hypertension; E78.00 Pure hypercholesterolemia, unspecified; M19.90 Unspecified osteoarthritis, unspecified site; F41.9 Anxiety disorder, unspecified; F32.9 Major depressive disorder, single episode, unspecified; E03.9 Hypothyroidism, unspecified; F17.210 Nicotine dependence, cigarettes, uncomplicated; Z86.718 Personal history of other venous thrombosis and embolism; Z79.899 Other long term (current) drug therapy; Z79.01 Long term (current) use of anticoagulants; W19.XXXA Unspecified fall, initial encounter; Y92.481 Parking lot as the place of occurrence of the external cause
CPT/HCPCS: 36415; 70450; 70450-26; 72125; 72125-26; 80048; 85025; 85610; 85730; 99284-25

== ENCOUNTER 2023-10-31 19:17 | Emergency (ER) | payer MEDICAID ==
[2023-10-31 19:33] LABS: BASOPHILS PERCENT AUTO 1.4 % (0.0-1.0); EOSINOPHILS ABSOLUTE AUTO 0.41 K/uL (0.00-0.45); EOSINOPHILS PERCENT AUTO 5.6 % (0.0-6.0); HEMATOCRIT 40.9 % (37.0-47.0); HEMOGLOBIN 14.3 g/dL (12.0-16.0); IMMATURE GRAN ABSOLUTE AUTO 0.02 K/uL (0.00-0.05); IMMATURE GRAN PERCENT AUTO 0.3 % (0.0-0.4); LYMPHOCYTES ABSOLUTE AUTO 2.85 K/uL (1.00-4.80); LYMPHOCYTES PERCENT AUTO 38.7 % (24.0-44.0); MEAN CORPUSCULAR HEMOGLOBIN 36.5 pg (28.0-32.0); MEAN CORPUSCULAR VOLUME 104.3 fL (83.0-99.0); MONOCYTES ABSOLUTE AUTO 0.43 K/uL (0.00-0.80); MONOCYTES PERCENT AUTO 5.8 % (0.0-8.0); NEUTROPHILS ABSOLUTE AUTO 3.56 K/uL (1.80-7.70); NEUTROPHILS PERCENT AUTO 48.2 % (41.0-71.0); PLATELET COUNT,PLT 273 K/uL (150-400); RED BLOOD CELL COUNT 3.92 M/uL (4.10-5.30); WHITE BLOOD CELL COUNT,WBC 7.37 K/uL (3.9-11.3)
[2023-10-31 19:57] LABS: BILIRUBIN,URINE NEGATIVE (NEGATIVE); COLOR,URINE YELLOW; GLUCOSE,URINE NEGATIVE (NEGATIVE); KETONES,URINE NEGATIVE (NEGATIVE); LEUKOCYTE ESTERASE,URINE NEGATIVE (NEGATIVE); NITRITE,URINE POSITIVE (NEGATIVE); OCCULT BLOOD,URINE TRACE-INTACT (NEGATIVE); PH,URINE 6.5 (5.0-8.0); PROTEIN,URINE 30 mg/dL (NEGATIVE); UROBILINOGEN,URINE 0.2 EU/dL (<2.0)
[2023-10-31 20:00] LABS: APPEARANCE,URINE SLT CLOUDY; BACTERIA,URINE 1+ (NEGATIVE); RBC,URINE 0-2 (0-2/HPF)
[2023-10-31 20:00] LABS: A/G RATIO 0.9 (0.9-1.6); ALANINE AMINOTRANSFERASE,ALT 16 IU/L (14-63); ALKALINE PHOSPHATASE 89 U/L (46-116); ASPARTATE AMNIOTRANSFERASE,AST 37 IU/L (15-37); BILIRUBIN TOTAL 0.6 mg/dL (0.2-1.0); BLOOD UREA NITROGEN,BUN 18 mg/dL (7.0-18.0); CALCIUM 9.8 mg/dL (8.5-10.1); CARBON DIOXIDE,CO2 28.2 mmol/L (21.0-32.0); CHLORIDE,CL 94 mmol/L (98-107); CREATINE KINASE,CK 431 U/L (26-308); CREATININE 1.1 mg/dL (0.6-1.0); ETHANOL BLOOD MEDICAL 183 mg/dL; GLUCOSE RANDOM 98 mg/dL (74-106); MAGNESIUM 1.9 mg/dL (1.8-2.4); POTASSIUM,K 3.7 mmol/L (3.5-5.1); PROTEIN TOTAL,TP 8.7 g/dL (6.4-8.2); SODIUM,NA 134 mmol/L (136-145)
[2023-10-31 20:01] LABS: EPITHELIAL CELLS,URINE MODERATE (NONE-FEW)
[2023-10-31 20:05] LABS: ESTIMATED GFR 56 mL/min (>60)
[2023-10-31] MEDS: Sodium Chloride 0.9% 1,000 ML IV ONE (20:26)
[2023-10-31] MEDS: cefTRIAXone 1 GM in Sodium Chloride 0.9% 50 ML IV ONE (20:26)
[2023-10-31 20:29] LABS: INR 1.06 (0.86-1.11)
[2023-10-31] MEDS: Iopamidol 755 MG/ML 500 ML Multipack Bottle IVPUSH ONE (21:07)
[2023-10-31 21:08] LABS: CORONAVIRUS COVID-19 NAA NEGATIVE (NEGATIVE); INFLUENZA A NAA NEGATIVE (NEGATIVE); INFLUENZA B NAA NEGATIVE (NEGATIVE)
[2023-10-31] MEDS: Furosemide 40 MG/4 ML VIAL IVPUSH ONE (21:35)
== END 2023-11-01 00:35 ==
LOC: MW.ED 19:17
DX: I31.39 Other pericardial effusion (noninflammatory) (principal); R79.1 Abnormal coagulation profile; N39.0 Urinary tract infection, site not specified; R09.02 Hypoxemia; M62.82 Rhabdomyolysis; I10 Essential (primary) hypertension; E78.00 Pure hypercholesterolemia, unspecified; E03.9 Hypothyroidism, unspecified; Z75.8 Other problems related to medical facilities and other health care; W01.198A Fall on same level from slipping, tripping and stumbling with subsequent striking against other object, initial encounter
CPT/HCPCS: 0240U; 36415; 70450; 71045; 71275; 72125; 80053; 80307; 81001; 82550; 83735; 83880; 85025; 85379; 85610; 87086; 93005; 96361; 96365; 96375; 99285; J0696; J1940; J3490; J7030; Q9967; 87088; 87186; 93010